=== PATIENT | female | born 1980 | race Caucasian/White ===

== ENCOUNTER 2016-07-31 12:52 | Inpatient (IN) | payer OTHER, MEDICARE ==
[~2016-07-31] VITALS: Ht 170.2 cm; Wt 99.8 kg
[2016-07-31] MEDS ORDERED: [UNRECOGNIZED DRUG - CODE] (13:08)
[2016-07-31] MEDS ORDERED: OTEZLA30 MG PO (13:08)
[2016-07-31] MEDS ORDERED: HUMIRA40 MG/0.2 SUBQ (13:08)
[2016-07-31] MEDS ORDERED: VENLAFAXINE HCL75 M2 ORAL (13:08)
[2016-07-31 13:30] VITALS: BP 137/87
--- NOTE | 2016-07-31 13:36 | Emergency Room Report ---
History of Present Illness General Chief Complaint: General Complaint Source: Patient Present Illness HPI 36 YO Female presents to the ED c/o pain, swelling, and erythema of the groin area with multiple abscesses noted. Pt. has a hx of Hidradenitis and has failed multiple oral courses of oral antibiotic therapy. pt. 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 The pt. is scheduled to have surgical removal by dr. Bell. Denies nausea vomiting fevers or chills. Denies cardiac history or recent illness. She denies abdominal pain, other than pain about the lesions in the groin area. Patient reports her pain is 8/10 in severity exacerbated upon touch. Denies CP, Palpitations, LOC, AMS, dizziness, Changes in Vision, Sensation, paresthesias, or a sudden severe headache. Allergies: Coded Allergies: CEFDINIR (Verified Allergy, Unknown, 07/31/16) CEPHALEXIN (Verified Allergy, Unknown, 07/31/16) CIPROFLOXACIN (Verified Allergy, Unknown, 07/31/16) DOXYCYCLINE (Unverified Allergy, Unknown, 07/31/16) ERYTHROMYCIN BASE (Unverified Allergy, Unknown, 07/31/16) LEVOFLOXACIN (Verified Allergy, Unknown, 07/31/16) MORPHINE (Verified Allergy, Unknown, 07/31/16) MUPIROCIN (Verified Allergy, Unknown, 07/31/16) PENICILLINS (Unverified Allergy, Unknown, 07/31/16) SULFA (SULFONAMIDE ANTIBIOTICS) (Unverified Allergy, Unknown, 07/31/16) Uncoded Allergies: DOXACYCLINE (Allergy, Unknown, 07/31/16) ERYTHROMYCIN (Allergy, Unknown, 07/31/16) PENICILLIN (Allergy, Unknown, 07/31/16) SULFA (Allergy, Unknown, 07/31/16) Patient History Past Medical History: see triage record Past Surgical History: none Pertinent Family History: none Last Menstrual Period: 2007 - Now: No Immunizations: UTD Reviewed Nursing Documentation: PMH: Agreed, PSxH: Agreed Review of Systems All Other Systems: negative except mentioned in HPI Physical Exam Vital Signs Date Time Temp Pulse Resp B/P Pulse Ox O2 Delivery O2 Flow Rate FiO2 07/31/16 12:54 98.4 87 16 137/87 97 Room Air Sp02 EP Interpretation: reviewed, normal General Appearance: no apparent distress, alert, GCS 15, non-toxic Head: normocephalic, atraumatic Eyes: bilateral eye PERRL, bilateral eye normal inspection ENT: hearing grossly normal, normal pharynx, no angioedema, normal voice Neck: full range of motion, supple/symm/no masses Respiratory: chest non-tender, lungs clear, normal breath sounds, speaking full sentences Cardiovascular #1: regular rate, rhythm, no edema Gastrointestinal: non tender, soft, no guarding, no rebound Rectal: deferred Genitourinary: normal inspection, no CVA tenderness Musculoskeletal: back normal, gait/station normal, normal range of motion, non- tender Neurologic: alert, oriented x3, responsive, motor strength/tone normal, sensory intact, speech normal Psychiatric: judgement/insight normal, memory normal, mood/affect normal Skin: normal color, no rash, warm/dry, well hydrated, other - 5 abscess in the groin less than 3cm each, erythema and ttp noted. Lymphatic: no adenopathy Medical Decision Making PA Attestation Dr. beltran is my supervising Physician whom patient management has been discussed with. Diagnostic Impression: Primary Impression: Hidradenitis suppurativa Additional Impression: Urinary tract infection Qualified Codes: N30.00 - Acute cystitis without hematuria ER Course Pt. presents to the ED c/o pain, swelling, and erythema of the groin area with multiple abscesses noted. Pt. has a hx of Hidradenitis and has failed multiple oral courses of oral antibiotic therapy. pt. 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 The pt. is scheduled to have surgical removal by dr. Bell. Denies nausea vomiting fevers or chills. Denies cardiac history or recent illness. She denies abdominal pain, other than pain about the lesions in the groin area. Patient reports her pain is 8/10 in severity exacerbated upon touch. Denies CP, Palpitations, LOC, AMS, dizziness, Changes in Vision, Sensation, paresthesias, or a sudden severe headache. Pt also reports hx of need for port , or PICC line. Ddx considered but are not limited to cellulitis, hydradenitis Suppurativa, fracture, d/L, gout, abscess Vital signs: are WNL, pt. is afebrile H&PE are most consistent with Vulval hydradenitis Suppurativa requiring direct admission for surgical or IV abx. management. ORDERS: -Gen. preop labwork: CBC, CMP, PT/PTT: WNL / unremarkable - Type and Screen. - EK BPM NSR, no acute ST changes noted, - interpreted by Dr. Mar. -UA: NITRITE POSITIVE, WBC's noted in urine. - Urine Hcg: Negative ED INTERVENTIONS: - PICC Line placement was ordered. - IV Access established. DISPOSITION: at this time pt. will be admitted to Dr. Pang for hydradenitis Suppurativa. Dr. Pang agreed to admit the pt. and to continue pt. care management. Labs Test 07/31/16 13:34 07/31/16 13:36 Urine Color Pale yellow Urine Appearance Clear Urine pH 5 (4.5-8.0) Urine Specific [place] 1.025 (1.005-1.035) Urine Protein Negative (NEGATIVE) Urine Glucose (UA) Negative (NEGATIVE) Urine Ketones Negative (NEGATIVE) Urine Occult Blood Negative (NEGATIVE) Urine Nitrite Positive (NEGATIVE) Urine Bilirubin Negative (NEGATIVE) Urine Urobilinogen Normal MG/DL (0.0-1.0) Urine Leukocyte Esterase 2+ (NEGATIVE) Urine RBC 0-2 /HPF (0 - 2) Urine WBC 10-15 /HPF (0 - 2) Urine Squamous Epithelial Cells Few /LPF (NONE/OCC) Urine Bacteria Moderate /HPF (NONE) Urine HCG, Qualitative Negative White Blood Count 11.1 K/UL (4.8-10.8) Red Blood Count 4.72 M/UL (4.20-5.40) Hemoglobin 14.2 G/DL (12.0-16.0) Hematocrit 42.2 % (37.0-47.0) Mean Corpuscular Volume 89 FL (80-99) Mean Corpuscular Hemoglobin 30.0 PG (27.0-31.0) Mean Corpuscular Hemoglobin Concent 33.5 G/DL (32.0-36.0) Red Cell Distribution Width 12.0 % (11.6-14.8) Platelet Count 266 K/UL (150-450) Mean Platelet Volume 7.0 FL (6.5-10.1) Neutrophils (%) (Auto) 54.5 % (45.0-75.0) Lymphocytes (%) (Auto) 37.5 % (20.0-45.0) Monocytes (%) (Auto) 3.9 % (1.0-10.0) Eosinophils (%) (Auto) 2.9 % (0.0-3.0) Basophils (%) (Auto) 1.2 % (0.0-2.0) Prothrombin Time 10.1 SEC (9.30-11.50) Prothromb Time International Ratio 1.0 (0.9-1.1) Activated Partial Thromboplast Time 26 SEC (23-33) Sodium Level 139 mEQ/L (135-145) Potassium Level 3.7 mEQ/L (3.4-4.9) Chloride Level 98 mEQ/L (98-107) Carbon Dioxide Level 24 mEQ/L (20-30) Anion Gap 17 (5-15) Blood Urea Nitrogen 10 mg/dL (7-23) Creatinine 1.1 mg/dL (0.5-0.9) Estimat Glomerular Filtration Rate 55.6 mL/min (>60) Glucose Level 90 mg/dL (74-106) Calcium Level 9.2 mg/dL (8.6-10.2) Total Bilirubin 0.3 mg/dL (0.0-1.2) Aspartate Amino Transf (AST/SGOT) 25 U/L (5-40) Alanine Aminotransferase (ALT/SGPT) 29 U/L (3-33) Alkaline Phosphatase 66 U/L (35-104) Total Protein 7.4 g/dL (6.6-8.7) Albumin 4.3 g/dL (3.5-5.2) Globulin 3.1 g/dL Albumin/Globulin Ratio 1.3 (1.0-2.7) EKG Diagnostic Results Rate: normal Rhythm: NSR - [address] Segments: no acute changes ASA given to the pt in ED: No PA Scribe Text this EKG was interpreted by Dr. Mar and interpretation was entered by NADEEM Palencia as scribe Last Vital Signs Date Time Temp Pulse Resp B/P Pulse Ox O2 Delivery O2 Flow Rate FiO2 07/31/16 12:54 98.4 87 16 137/87 97 Room Air Disposition: ADMITTED INPATIENT Condition: Serious Brenda Palencia Jul 31, 2016 13:36
[2016-07-31] MEDS ORDERED: Heparin 2000 units/Ns 1000ml IV ONE (13:45)
[2016-07-31] MEDS ORDERED: Lidocaine 1% Plain 30 ml INJ ONE (13:45)
[2016-07-31 14:14] LABS: APPEARANCE,URINE CLEAR; KETONES,URINE NEGATIVE (NEGATIVE); LEUKOCYTE ESTERASE ,URINE 2+ (NEGATIVE); NITRITE,URINE POSITIVE (NEGATIVE); PH,URINE 5 (4.5-8.0); PROTEIN,URINE NEGATIVE (NEGATIVE); UROBILINOGEN,URINE NORMAL MG/DL (0.0-1.0)
[2016-07-31 14:15] LABS: BASOPHILS % (AUTO) 1.2 % (0.0-2.0); EOSINOPHILS % (AUTO) 2.9 % (0.0-3.0); LYMPHOCYTES % (AUTO) 37.5 % (20.0-45.0); MEAN CORPUSCULAR HGB CONC 33.5 G/DL (32.0-36.0); MEAN CORPUSCULAR VOLUME 89 FL (80-99); MONOCYTES % (AUTO) 3.9 % (1.0-10.0); NEUTROPHILS % (AUTO) 54.5 % (45.0-75.0); PLATELET COUNT 266 K/UL (150-450); RED BLOOD COUNT 4.72 M/UL (4.20-5.40); WHITE BLOOD COUNT 11.1 K/UL (4.8-10.8)
[2016-07-31 14:23] LABS: PROTHROMBIN TIME 10.1 SEC (9.30-11.50)
[2016-07-31 14:28] LABS: ALBUMIN/GLOBULIN RATIO 1.3 (1.0-2.7); CALCIUM 9.2 mg/dL (8.6-10.2); CREATININE 1.1 mg/dL (0.5-0.9); GLOMERULAR FILTRATION RATE 55.6 mL/min (>60); POTASSIUM 3.7 mEQ/L (3.4-4.9); TOTAL PROTEIN 7.4 g/dL (6.6-8.7)
[2016-07-31 14:33] LABS: BACTERIA,URINE MODERATE /HPF; RBC,URINE 0-2 /HPF (0 - 2); SQUAMOUS EPITHELIAL CELL,UR FEW /LPF (NONE/OCC)
[2016-07-31 15:20] VITALS: BP 131/85
[2016-07-31] MEDS ORDERED: Sodium Bicarbonate 4% 2.4meq/5ml vial IV ONE (15:30)
--- NOTE | 2016-07-31 18:44 | History and Physical ---
History of Present Illness General Date patient seen: Jul 31, 2016 Time patient seen: 18:37 Reason for Hospitalization: abscess Present Illness HPI 36 y/o female with hx of hidradenitis in the past s/p multiple treatemtns including abx and surgeries, presents with pain in her axillary region and groin , impeding her from fully being able to work and perform ADLs, pt has been on disability for months beacause of this. No fevers/chills, pain progressive in her axillary and groin regions. No previous complications from gen anesthesia or cardio/pulm complications from previous surgeries. Is able to perform 4METS activity without any chest pain or dyspnea, no hx of CAD/SD/pulm disease. 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 Allergies: Coded Allergies: CEFDINIR (Verified Allergy, Unknown, 07/31/16) CEPHALEXIN (Verified Allergy, Unknown, 07/31/16) CIPROFLOXACIN (Verified Allergy, Unknown, 07/31/16) DOXYCYCLINE (Unverified Allergy, Unknown, 07/31/16) ERYTHROMYCIN BASE (Unverified Allergy, Unknown, 07/31/16) LEVOFLOXACIN (Verified Allergy, Unknown, 07/31/16) MORPHINE (Verified Allergy, Unknown, 07/31/16) MUPIROCIN (Verified Allergy, Unknown, 07/31/16) PENICILLINS (Unverified Allergy, Unknown, 07/31/16) SULFA (SULFONAMIDE ANTIBIOTICS) (Unverified Allergy, Unknown, 07/31/16) Uncoded Allergies: DOXACYCLINE (Allergy, Unknown, 07/31/16) ERYTHROMYCIN (Allergy, Unknown, 07/31/16) PENICILLIN (Allergy, Unknown, 07/31/16) SULFA (Allergy, Unknown, 07/31/16) Medication History Scheduled Adalimumab (Humira), 40 MG SUBQ ONCE A WEEK, (Reported) Apremilast (Otezla), 30 MG PO BID, (Reported) Venlafaxine Hcl* (Venlafaxine Hcl Er*), 75 MG ORAL DAILY, (Reported) [Clobestasol], BID, (Reported) Patient History History Provided By: Patient Healthcare decision maker Resuscitation status Full Code Advanced Directive on File No Past Medical/Surgical History Past Medical/Surgical History: (1) Palmoplantar pustulosis Family History Family History: Patient reports no known family medical history. Social History Social History: (1) No significant social history Review of Systems ROS Narrative CONSTITUTIONAL: No weight loss, fever, chills, weakness or fatigue. HEENT: Eyes: No visual loss, blurred vision, double vision or yellow sclerae. Ears, Nose, Throat: No hearing loss, sneezing, congestion, runny nose or sore throat. SKIN: No rash or itching. CARDIOVASCULAR: No chest pain, chest pressure or chest discomfort. No palpitations or edema. RESPIRATORY: No shortness of breath, cough or sputum. GASTROINTESTINAL: No anorexia, nausea, vomiting or diarrhea. No abdominal pain or blood. NEUROLOGICAL: No headache, dizziness, syncope, paralysis, ataxia, numbness or tingling in the extremities. No change in bowel or bladder control. MUSCULOSKELETAL: + groin and axillary pain. HEMATOLOGIC: No anemia, bleeding or bruising. LYMPHATICS: No enlarged nodes. No history of splenectomy. PSYCHIATRIC: No history of depression or anxiety. ENDOCRINOLOGIC: No reports of sweating, cold or heat intolerance. No polyuria or polydipsia. ALLERGIES: No history of asthma, hives, eczema or rhinitis. Physical Exam Physical Exam Narrative General: alert, cooperative, no distress, appears stated age Head: normocephalic, without obvious abnormality, atraumatic Eyes: conjunctivae/corneas clear. PERRL, EOM's intact Throat: lips, mucosa, and tongue normal. MMM Neck: supple, symmetrical, trachea midline, and no JVD Lungs: clear to auscultation bilaterally Heart: regular rate and rhythm, S1, S2 normal, no murmur, click, rub or gallop Abdomen: soft, non-tender, non-distended, bowel sounds normal; no masses or organomegaly Extremities: +tenderness, +lesions, +rubor on bilateral axillae and groin region - desquamative lesions on palms and soles bilaterally Pulses: 2+ and symmetric Neurologic: grossly normal, no focal deficits Last 24 Hour Vital Signs Date Time Temp Pulse Resp B/P Pulse Ox O2 Delivery O2 Flow Rate FiO2 07/31/16 15:20 98.4 87 16 131/85 97 Room Air 07/31/16 15:20 87 16 131/85 97 Room Air 07/31/16 13:30 98.4 16 137/87 97 Room Air 07/31/16 12:54 98.4 87 16 137/87 97 Room Air Laboratory Tests Test 07/31/16 13:34 07/31/16 13:36 Urine Color Pale yellow Urine Appearance Clear Urine pH 5 (4.5-8.0) Urine Specific [place] 1.025 (1.005-1.035) Urine Protein Negative (NEGATIVE) Urine Glucose (UA) Negative (NEGATIVE) Urine Ketones Negative (NEGATIVE) Urine Occult Blood Negative (NEGATIVE) Urine Nitrite Positive (NEGATIVE) H Urine Bilirubin Negative (NEGATIVE) Urine Urobilinogen Normal MG/DL (0.0-1.0) Urine Leukocyte Esterase 2+ (NEGATIVE) H Urine RBC 0-2 /HPF (0 - 2) Urine WBC 10-15 /HPF (0 - 2) H Urine Squamous Epithelial Cells Few /LPF (NONE/OCC) Urine Bacteria Moderate /HPF (NONE) H Urine HCG, Qualitative Negative White Blood Count 11.1 K/UL (4.8-10.8) H Red Blood Count 4.72 M/UL (4.20-5.40) Hemoglobin 14.2 G/DL (12.0-16.0) Hematocrit 42.2 % (37.0-47.0) Mean Corpuscular Volume 89 FL (80-99) Mean Corpuscular Hemoglobin 30.0 PG (27.0-31.0) Mean Corpuscular Hemoglobin Concent 33.5 G/DL (32.0-36.0) Red Cell Distribution Width 12.0 % (11.6-14.8) Platelet Count 266 K/UL (150-450) Mean Platelet Volume 7.0 FL (6.5-10.1) Neutrophils (%) (Auto) 54.5 % (45.0-75.0) Lymphocytes (%) (Auto) 37.5 % (20.0-45.0) Monocytes (%) (Auto) 3.9 % (1.0-10.0) Eosinophils (%) (Auto) 2.9 % (0.0-3.0) Basophils (%) (Auto) 1.2 % (0.0-2.0) Prothrombin Time 10.1 SEC (9.30-11.50) Prothromb Time International Ratio 1.0 (0.9-1.1) Activated Partial Thromboplast Time 26 SEC (23-33) Sodium Level 139 mEQ/L (135-145) Potassium Level 3.7 mEQ/L (3.4-4.9) Chloride Level 98 mEQ/L (98-107) Carbon Dioxide Level 24 mEQ/L (20-30) Anion Gap 17 (5-15) H Blood Urea Nitrogen 10 mg/dL (7-23) Creatinine 1.1 mg/dL (0.5-0.9) H Estimat Glomerular Filtration Rate 55.6 mL/min (>60) Glucose Level 90 mg/dL (74-106) Calcium Level 9.2 mg/dL (8.6-10.2) Total Bilirubin 0.3 mg/dL (0.0-1.2) Aspartate Amino Transf (AST/SGOT) 25 U/L (5-40) Alanine Aminotransferase (ALT/SGPT) 29 U/L (3-33) Alkaline Phosphatase 66 U/L (35-104) Total Protein 7.4 g/dL (6.6-8.7) Albumin 4.3 g/dL (3.5-5.2) Globulin 3.1 g/dL Albumin/Globulin Ratio 1.3 (1.0-2.7) Height (Feet): 5 Height (Inches): 7.00 Weight (Pounds): 220 Medications Current Medications Medications (Trade) Dose Ordered Sig/[place] Route PRN Reason Start Time Stop Time Status Last Admin Dose Admin Venlafaxine HCl (Effexor-XR) 75 mg DAILY ORAL 08/01/16 09:00 08/31/16 08:59 Assessment/Plan Problem List: (1) Abscess Assessment & Plan: Admit to inpatient Start IV abx, vanco IV to run over 4 hours, benadryl pre-treatment has worked for her in the past Blood cx Pain control Supp care Surgical consult If patient is required to have surgery, based on the patient's medical history, and other available ancillary data, the patient is a LOW risk for an INTERMEDIATE risk procedure. Per the most recent ACC/AHA guidelines, the patient does not need any further cardiopulmonary testing prior to the procedure and there do not appear to be any clear medical contraindications to proceeding with the proposed procedure. A total of 33 mins of time was spent with coordination of care and counseling, in addition to the face to face time spent with the patient. ICD Codes: L02.91 - Cutaneous abscess, unspecified SNOMED: 636362853 (2) Palmoplantar pustulosis Assessment & Plan: Stable Cont zaheer floyd ICD Codes: L40.3 - Pustulosis palmaris et plantaris SNOMED: 72700412 ROBSON DAWN Jul 31, 2016 18:44
[2016-07-31] MEDS ORDERED: LORazepam Inj 2mg/ml 1ml IV PRN (18:45)
[2016-07-31] MEDS ORDERED: Mylanta II UD 30ml ORAL PRN (18:45)
[2016-07-31] MEDS ORDERED: HYDROmorphone 1mg/ml Carpuject IVP PRN (18:45)
[2016-07-31] MEDS ORDERED: Hydromorphone 0.5mg/0.5ml inj IVP PRN (18:45)
[2016-07-31] MEDS ORDERED: Miralax 17gm pkt ORAL PRN (18:45)
[2016-07-31 20:00] VITALS: BP 137/78
[2016-07-31] MEDS: Vancomycin 1.5gm/D5W 300ml 300 ML IVPB ONE (21:00)
[2016-07-31] MEDS: Docusate 100mg cap ORAL SCH (21:00)
[2016-07-31] MEDS: D5NS 1,000 ML IV SCH (21:01)
[2016-07-31] MEDS: DiphenhydrAMINE 50mg/ml Inj IVP SCH (21:36)
[2016-08-01] VITALS (14 sets, daily range): BP systolic 97–140; BP diastolic 62–92
[2016-08-01] MEDS ORDERED: DiphenhydrAMINE 50mg/ml Inj IVP ONE (01:30)
[2016-08-01] MEDS ORDERED: Vancomycin 750mg/D5W 275ml IVPB ONE ×2 (02:00)
[2016-08-01] MEDS ORDERED: Vancomycin 750mg Inj IVPB ONE (02:23)
[2016-08-01 07:07] LABS: CALCIUM 8.7 mg/dL (8.6-10.2); CREATININE 1.1 mg/dL (0.5-0.9); GLOMERULAR FILTRATION RATE 55.6 mL/min (>60); POTASSIUM 4.2 mEQ/L (3.4-4.9)
[2016-08-01 07:22] LABS: EOSINOPHILS % (AUTO) 3.9 % (0.0-3.0); LYMPHOCYTES % (AUTO) 35.6 % (20.0-45.0); MEAN CORPUSCULAR HEMOGLOBIN 30.1 PG (27.0-31.0); MEAN CORPUSCULAR HGB CONC 33.5 G/DL (32.0-36.0); MEAN CORPUSCULAR VOLUME 90 FL (80-99); MEAN PLATELET VOLUME 6.5 FL (6.5-10.1); MONOCYTES % (AUTO) 7.2 % (1.0-10.0); NEUTROPHILS % (AUTO) 52.2 % (45.0-75.0); PLATELET COUNT 227 K/UL (150-450); RED BLOOD COUNT 4.39 M/UL (4.20-5.40); RED CELL DISTRIBUTION WIDTH 12.3 % (11.6-14.8); WHITE BLOOD COUNT 8.5 K/UL (4.8-10.8)
[2016-08-01] MEDS: DiphenhydrAMINE 50mg/ml Inj IVP SCH ×2 (08:30→16:54)
[2016-08-01] MEDS: Docusate 100mg cap ORAL SCH ×3 (09:00→23:37)
[2016-08-01] MEDS: Venlafaxine XR 75mg cap ORAL SCH (09:00)
[2016-08-01] MEDS ORDERED: Vancomycin 750mg/D5W 275ml IVPB SCH ×2 (09:00)
--- NOTE | 2016-08-01 09:57 | Diagnostic Imaging Report ---
Indications: Long-term central IV access required for intravenous therapy Technique: The procedure indications, risks, and alternatives were explained to the patient who understands and gives consent to proceed. Strict aseptic technique was utilized, including hand washing, use of hat and mask, use of sterile gown and gloves, sterile ultrasound gel and probe cover, prepping of left arm skin with 2% chlorhexidine solution, and application of full body sterile barrier over this area. Skin and subcutaneous soft tissues were infiltrated with 1% lidocaine and sodium bicarbonate. A small dermatotomy was made, through which the patent, adequate size left basilic vein was punctured percutaneously under direct sonographic guidance with a 21-gauge needle. Exchange was made over a 0.018 inch guidewire for a 5 [place] peel-away sheath. A [employer] Power-PICC 5 [place] dual lumen central venous catheter was cut to appropriate length, then advanced through the sheath over the guidewire under direct fluoroscopic guidance into the superior vena cava. Guidewire and sheath were removed. Both catheter ports were aspirated, then flushed with heparinized saline. Final image was obtained. Catheter was secured the skin with adhesive dressing. Patient tolerated procedure well without immediate complications. Total fluoroscopy time: 0.1 minutes. Dose-area product: 19 dGy-cm2 Findings: Final image demonstrates tip of the central venous catheter at the level of superior vena cava-right atrial junction, 42 cm in from the skin. Both ports aspirate and flush freely. IMPRESSION: Placement of peripherally inserted central venous catheter via left basilic vein, working well.
--- NOTE | 2016-08-01 10:37 | Pre-Procedure Note/Attestation ---
Pre-Procedure Note/Attestation Complete Prior to Procedure Planned Procedure: bilateral Procedure Narrative: Debridement of bilateral groin and lower abdomen with flap elevation Attestation I attest that I discussed the nature of the procedure; its benefits; risks and complications; and alternatives (and the risks and benefits of such alternatives ), prior to the procedure, with the patient (or the patient's legal farm loan representative). I attest that, if there was a reasonable possibility of needing a blood transfusion, the patient (or the patient's legal farm loan representative) was given the [facility] standardized written summary, pursuant to the [place] Blood Safety Act ([place] Health and Safety Code # 1645, as amended). I attest that I re-evaluated the patient just prior to the surgery and that there has been no change in the patient's H&P, except as documented below: FRANCO ALVARADO Aug 01, 2016 10:37
--- NOTE | 2016-08-01 10:38 | Operative Note - PDOC ---
Operative Note Operative Note Pre-op Diagnosis: Bilateral infected groin and lower abdominal tissues Procedure: Excisional debridement of bilateral groin and lower abdominal tissues with flap elevation Surgeon: Avila Flight Service Specialist: Ayla Anesthesia: general Specimen: yes Complications: none Condition: stable Estimated Blood Loss: minimal Implant(s) used?: No FRANCO ALVARADO Aug 01, 2016 10:38
[2016-08-01] MEDS ORDERED: Rate Change PCA 1 Each MISC PRN (10:45)
[2016-08-01] MEDS ORDERED: Zolpidem 5mg tab ORAL PRN (10:45)
[2016-08-01] MEDS ORDERED: Propofol 10mg/ml 20ml IV ONE (11:05)
[2016-08-01] MEDS ORDERED: Bacitracin 50000 Units Vial ONE (11:06)
[2016-08-01] MEDS ORDERED: Lidocaine 1% 10mg/ml/Epi 0.005mg/ml 30ml vial INJ ONE ×3 (11:06→12:48)
[2016-08-01] MEDS ORDERED: NS Irrig 1000ml ONE (11:30)
[2016-08-01] MEDS ORDERED: Neostigmine 1mg/ml 10ml Inj ONE (11:30)
[2016-08-01] MEDS ORDERED: Midazolam 2mg/2ml Inj ONE (11:30)
[2016-08-01] MEDS ORDERED: Succinylcholine 20mg/ml 10ml vial ONE (11:30)
[2016-08-01] MEDS ORDERED: Nimbex 2mg/ml Inj 10ML IVP ONE (11:30)
[2016-08-01] MEDS ORDERED: fentaNYL 100 mcg/2 mL IV ONE (11:30)
[2016-08-01] MEDS ORDERED: Sterile Water Irrig 1000ml IRRIG ONE (11:30)
[2016-08-01] MEDS ORDERED: LR 1000ml ONE (11:30)
[2016-08-01] MEDS ORDERED: Ketorolac 30mg Inj ONE (11:30)
[2016-08-01] MEDS ORDERED: Glycopyrrolate 0.2mg/ml 1ml Vial ONE (11:30)
[2016-08-01] MEDS ORDERED: Surgicel 4in x 8in TOPIC ONE (12:30)
--- NOTE | 2016-08-01 12:33 | Anethesia Preoperative Eval ---
Anesthesia Pre-op PMH/ROS General Date of Evaluation: Aug 01, 2016 Time of Evaluation: 11:20 Anesthesiologist: Demar ASA Score: ASA 3 Mallampati Score Class I : Soft palate, uvula, fauces, pillars visible Class II: Soft palate, uvula, fauces visible Class III: Soft palate, base of uvula visible Class IV: Only hard plate visible Mallampati Classification: Class III Surgeon: Avila Diagnosis: Recurrent hydradenitis Surgical Procedure: Excision of bilateral groin hydradenitis Anesthesia History: none Allergies: Coded Allergies: CEFDINIR (Verified Allergy, Unknown, 07/31/16) CEPHALEXIN (Verified Allergy, Unknown, 07/31/16) CIPROFLOXACIN (Verified Allergy, Unknown, 07/31/16) DOXYCYCLINE (Unverified Allergy, Unknown, 07/31/16) ERYTHROMYCIN BASE (Unverified Allergy, Unknown, 07/31/16) LEVOFLOXACIN (Verified Allergy, Unknown, 07/31/16) MORPHINE (Verified Allergy, Unknown, 07/31/16) MUPIROCIN (Verified Allergy, Unknown, 07/31/16) PENICILLINS (Unverified Allergy, Unknown, 07/31/16) SULFA (SULFONAMIDE ANTIBIOTICS) (Unverified Allergy, Unknown, 07/31/16) Uncoded Allergies: DOXACYCLINE (Allergy, Unknown, 07/31/16) ERYTHROMYCIN (Allergy, Unknown, 07/31/16) PENICILLIN (Allergy, Unknown, 07/31/16) SULFA (Allergy, Unknown, 07/31/16) Past Medical History Cardiovascular: Denies: CAD, HTN, [place], arrhythmia, other, valve dz Pulmonary: Reports: ANAMIKA, Denies: COPD, asthma, other Gastrointestinal/Genitourinary: Reports: GERD, Denies: CRI, ESRD, other Neurologic/Psychiatric: Reports: depression/anxiety, Denies: CVA, TIA, dementia, other Endocrine: Denies: DM, hypothyroidism, other, steroids HEENT: Denies: CROW (L), CROW (R), cataract (L), cataract (R), glaucoma, other Hematology/Immune: Denies: DVT, anemia, bleeding disorder, other Musculoskeletal/Integumentary: Reports: other - Recurrent HS, Denies: DDD, DJD, OA, RA, edema Other: obesity PMH Narrative: as above PSxH Narrative: T&A Hysterectomy, knee scopes, Axillary HS treatment Anesthesia Pre-op Phys. Exam Physician Exam Last Vital Signs Date Time Temp Pulse Resp B/P Pulse Ox O2 Delivery O2 Flow Rate FiO2 08/01/16 08:00 97.7 71 17 121/70 96 Room Air Constitutional: NAD Neurologic: CN 2-12 intact Cardiovascular: RRR Respiratory: CTA Gastrointestinal: other - obesuty Airway Exam Mallampati Score: Class III MO: limited Neck: short Teeth: missing Anesthesia Pre-op A/P Labs Hematology Test 07/31/16 13:36 08/01/16 05:20 White Blood Count 11.1 K/UL (4.8-10.8) H 8.5 K/UL (4.8-10.8) Red Blood Count 4.72 M/UL (4.20-5.40) 4.39 M/UL (4.20-5.40) Hemoglobin 14.2 G/DL (12.0-16.0) 13.2 G/DL (12.0-16.0) Hematocrit 42.2 % (37.0-47.0) 39.5 % (37.0-47.0) Mean Corpuscular Volume 89 FL (80-99) 90 FL (80-99) Mean Corpuscular Hemoglobin 30.0 PG (27.0-31.0) 30.1 PG (27.0-31.0) Mean Corpuscular Hemoglobin Concent 33.5 G/DL (32.0-36.0) 33.5 G/DL (32.0-36.0) Red Cell Distribution Width 12.0 % (11.6-14.8) 12.3 % (11.6-14.8) Platelet Count 266 K/UL (150-450) 227 K/UL (150-450) Mean Platelet Volume 7.0 FL (6.5-10.1) 6.5 FL (6.5-10.1) Neutrophils (%) (Auto) 54.5 % (45.0-75.0) 52.2 % (45.0-75.0) Lymphocytes (%) (Auto) 37.5 % (20.0-45.0) 35.6 % (20.0-45.0) Monocytes (%) (Auto) 3.9 % (1.0-10.0) 7.2 % (1.0-10.0) Eosinophils (%) (Auto) 2.9 % (0.0-3.0) 3.9 % (0.0-3.0) H Basophils (%) (Auto) 1.2 % (0.0-2.0) 1.0 % (0.0-2.0) Coagulation Test 07/31/16 13:36 Prothrombin Time 10.1 SEC (9.30-11.50) Prothromb Time International Ratio 1.0 (0.9-1.1) Activated Partial Thromboplast Time 26 SEC (23-33) Chemistry Test 07/31/16 13:36 08/01/16 05:20 Sodium Level 139 mEQ/L (135-145) 139 mEQ/L (135-145) Potassium Level 3.7 mEQ/L (3.4-4.9) 4.2 mEQ/L (3.4-4.9) Chloride Level 98 mEQ/L (98-107) 98 mEQ/L (98-107) Carbon Dioxide Level 24 mEQ/L (20-30) 24 mEQ/L (20-30) Anion Gap 17 (5-15) H 17 (5-15) H Blood Urea Nitrogen 10 mg/dL (7-23) 11 mg/dL (7-23) Creatinine 1.1 mg/dL (0.5-0.9) H 1.1 mg/dL (0.5-0.9) H Estimat Glomerular Filtration Rate 55.6 mL/min (>60) 55.6 mL/min (>60) Glucose Level 90 mg/dL (74-106) 100 mg/dL (74-106) Calcium Level 9.2 mg/dL (8.6-10.2) 8.7 mg/dL (8.6-10.2) Total Bilirubin 0.3 mg/dL (0.0-1.2) Aspartate Amino Transf (AST/SGOT) 25 U/L (5-40) Alanine Aminotransferase (ALT/SGPT) 29 U/L (3-33) Alkaline Phosphatase 66 U/L (35-104) Total Protein 7.4 g/dL (6.6-8.7) Albumin 4.3 g/dL (3.5-5.2) Globulin 3.1 g/dL Albumin/Globulin Ratio 1.3 (1.0-2.7) Urine Test Test 07/31/16 13:34 Urine HCG, Qualitative Negative Risk Assessment & Plan Assessment: ASA 3 Plan: GA with ETT, PONV prevention Status Change Before Surgery: No Pre-Antibiotics Drug: none GERTRUDE JENKINS M.D. Aug 01, 2016 12:33
[2016-08-01] MEDS ORDERED: LR 1000ml 1,000 ML IVLG SCH (12:37)
[2016-08-01] MEDS ORDERED: Hydromorphone 0.5mg/0.5ml inj IVP PRN (12:45)
[2016-08-01] MEDS ORDERED: Meperidine 25mg/0.5ml Inj IV PRN (12:45)
[2016-08-01] MEDS ORDERED: Metoclopramide 10mg/2ml Inj IVP PRN (12:45)
[2016-08-01] MEDS ORDERED: Midazolam 2mg/2ml Inj IVP PRN (12:45)
[2016-08-01] MEDS ORDERED: DiphenhydrAMINE 50mg/ml Inj IVP PRN (12:45)
[2016-08-01] MEDS: PCA HYDROmorphone 1mg/ml 30 ML IV PRN (13:42)
[2016-08-01] MEDS: Heparin 5000 units/ml inj SUBQ SCH ×2 (14:00→22:00)
--- NOTE | 2016-08-01 15:12 | Immediate Post-Op Evaluation ---
Immediate Post-Op Evalulation Immediate Post-Op Evalulation Procedure: Bilateral excision of groin hydradenitis Date of Evaluation: Aug 01, 2016 Time of Evaluation: 13:30 IV Fluids: 1000 Blood Products: none Estimated Blood Loss: 50 Urinary Output: 350 Blood Pressure Systolic: 116 Blood Pressure Diastolic: 58 Pulse Rate: 72 Respiratory Rate: 20 O2 Sat by Pulse Oximetry: 99 Temperature (Fahrenheit): 97.4 Pain Score (1-10): 2 Nausea: No Vomiting: No Complications none Patient Status: reacts, patent, extubated, none Hydration Status: adequate GERTRUDE JENKINS M.D. Aug 01, 2016 15:12
[2016-08-01] MEDS: D5NS 1,000 ML IV SCH (15:36)
[2016-08-01] MEDS: Vancomycin 750mg/D5W 275ml IVPB SCH ×2 (17:30)
--- NOTE | 2016-08-01 17:36 | 48 Hour Post Anesthesia Eval ---
Post Anesthesia Evaluation Procedure: Bilateral excision of groin hydradenitis Date of Evaluation: Aug 01, 2016 Time of Evaluation: 17:35 Blood Pressure Systolic: 122 0: 62 Pulse Rate: 65 Respiratory Rate: 17 Temperature (Fahrenheit): 96.8 O2 Sat by Pulse Oximetry: 93 Airway: patent Nausea: No Vomiting: No Pain Intensity: 2 Hydration Status: adequate Cardiopulmonary Status: Stable Mental Status/LOC: patient returned to baseline Follow-up Care/Observations: 0 Post-Anesthesia Complications: 0 Follow-up care needed: N/A Ralph Leach MD Aug 01, 2016 17:36
--- NOTE | 2016-08-01 19:11 | General Progress Note ---
Assessment/Plan Problem List: (1) Abscess Assessment & Plan: s/p debridement POD#1 ContIV abx, vanco IV to run over 4 hours, iwona pre-treatment has worked for her in the past f/u Blood cx Pain control Supp care Surgical consult A total of 32 mins of time was spent with coordination of care and counseling, in addition to the face to face time spent with the patient. ICD Codes: L02.91 - Cutaneous abscess, unspecified SNOMED: 722294995 (2) Palmoplantar pustulosis Assessment & Plan: Stable Cont zaheer floyd dced ICD Codes: L40.3 - Pustulosis palmaris et plantaris SNOMED: 19695562 Subjective Date patient seen: Aug 01, 2016 Time patient seen: 19:10 ROS Limited/Unobtainable: No Allergies: Coded Allergies: CEFDINIR (Verified Allergy, Unknown, 07/31/16) CEPHALEXIN (Verified Allergy, Unknown, 07/31/16) CIPROFLOXACIN (Verified Allergy, Unknown, 07/31/16) DOXYCYCLINE (Unverified Allergy, Unknown, 07/31/16) ERYTHROMYCIN BASE (Unverified Allergy, Unknown, 07/31/16) LEVOFLOXACIN (Verified Allergy, Unknown, 07/31/16) MORPHINE (Verified Allergy, Unknown, 07/31/16) MUPIROCIN (Verified Allergy, Unknown, 07/31/16) PENICILLINS (Unverified Allergy, Unknown, 07/31/16) SULFA (SULFONAMIDE ANTIBIOTICS) (Unverified Allergy, Unknown, 07/31/16) Uncoded Allergies: DOXACYCLINE (Allergy, Unknown, 07/31/16) ERYTHROMYCIN (Allergy, Unknown, 07/31/16) PENICILLIN (Allergy, Unknown, 07/31/16) SULFA (Allergy, Unknown, 07/31/16) Subjective s/p debridement surgery POD#1, no periop or postop complications, no chest pain or dyspnea, no n/v, having dinner at time of visit. Objective Last 24 Hour Vital Signs Date Time Temp Pulse Resp B/P Pulse Ox O2 Delivery O2 Flow Rate FiO2 08/01/16 17:36 65 17 93 08/01/16 16:00 96.8 65 17 122/62 93 Room Air 08/01/16 15:28 18 08/01/16 15:12 72 20 99 08/01/16 14:58 17 08/01/16 14:30 98.0 08/01/16 14:30 18 08/01/16 14:30 97.9 81 17 108/66 99 Nasal Cannula 2.0 08/01/16 14:16 98.0 84 16 121/72 100 Nasal Cannula 3.0 08/01/16 14:15 16 08/01/16 14:10 79 14 132/74 100 Nasal Cannula 3.0 08/01/16 14:00 15 08/01/16 14:00 82 15 140/76 100 Nasal Cannula 3.0 08/01/16 13:50 87 19 130/81 100 Nasal Cannula 3.0 08/01/16 13:42 16 08/01/16 13:40 84 16 126/74 100 Nasal Cannula 3.0 08/01/16 13:35 88 16 121/72 100 Simple Mask 6.0 08/01/16 13:30 74 12 116/67 97 Simple Mask 6.0 08/01/16 13:24 98.8 71 14 124/75 99 Simple Mask 6.0 08/01/16 08:00 97.7 71 17 121/70 96 Room Air 08/01/16 04:00 97.8 73 18 133/92 97 Room Air 08/01/16 00:00 97.7 78 18 135/89 97 Room Air 07/31/16 20:00 98.7 67 18 137/78 97 Room Air Intake and Output 07/31/16 08/01/16 19:00 07:00 Intake Total 0 ml 748.83 ml Balance 0 ml 748.83 ml Intake Oral 0 ml IV Total 748.83 ml # Voids 5 Laboratory Tests 08/01/16 05:20: White Blood Count 8.5, Red Blood Count 4.39, Hemoglobin 13.2, Hematocrit 39.5, Mean Corpuscular Volume 90, Mean Corpuscular Hemoglobin 30.1, Mean Corpuscular Hemoglobin Concent 33.5, Red Cell Distribution Width 12.3, Platelet Count 227, Mean Platelet Volume 6.5, Neutrophils (%) (Auto) 52.2, Lymphocytes (%) (Auto) 35.6, Monocytes (%) (Auto) 7.2, Eosinophils (%) (Auto) 3.9H, Basophils (%) (Auto ) 1.0, Sodium Level 139, Potassium Level 4.2, Chloride Level 98, Carbon Dioxide Level 24, Anion Gap 17H, Blood Urea Nitrogen 11, Creatinine 1.1H, Estimat Glomerular Filtration Rate 55.6, Glucose Level 100, Calcium Level 8.7 Height (Feet): 5 Height (Inches): 7.00 Weight (Pounds): 220 Objective General: alert, cooperative, no distress, appears stated age Head: normocephalic, without obvious abnormality, atraumatic Eyes: conjunctivae/corneas clear. PERRL, EOM's intact Throat: lips, mucosa, and tongue normal. MMM Neck: supple, symmetrical, trachea midline, and no JVD Lungs: clear to auscultation bilaterally Heart: regular rate and rhythm, S1, S2 normal, no murmur, click, rub or gallop Abdomen: soft, non-tender, non-distended, bowel sounds normal; no masses or organomegaly Extremities: dressings c/d/i Pulses: 2+ and symmetric Skin: skin color, texture, turgor normal; no rashes or lesions Neurologic: grossly normal, no focal deficits ROBSON DAWN Aug 01, 2016 19:11
[2016-08-01] MEDS: PCA shift volume MISC SCH (19:12)
--- NOTE | 2016-08-01 20:15 | Consultation ---
DATE OF CONSULTATION: 08/01/2016 HISTORY OF PRESENT ILLNESS: This is a 36-year-old female, admitted to the emergency room for bilateral groin and lower abdominal abscesses with tenderness secondary to a history of hidradenitis. The patient has tried previous medical management and that has failed. Specifically, she has been on Humira, which has caused her complications with minimal improvement of her symptoms and she continues to have pain and drainage in those areas. She was admitted and started on IV antibiotics and I am seeing the patient for this condition. PAST MEDICAL HISTORY: Significant for polycystic ovary disease and hidradenitis. PAST SURGICAL HISTORY: Significant for total abdominal hysterectomy with axillary excision of hidradenitis and previous groin excision of hidradenitis. ALLERGIES: Includes multiple antibiotic allergies. Please refer to the internal medicine doctors note for those specific medications. PHYSICAL EXAMINATION: GENERAL: The patient is alert and oriented x3. HEART: Regular rate and rhythm. ABDOMEN: Soft, nontender, and nondistended. EXTREMITIES: Examination of the lower abdomen reveals areas of multiple abscesses in the left lower abdomen as well as sinus tracts and abscesses within the bilateral groins. ASSESSMENT AND PLAN: This is a 36-year-old female, admitted for lower abdominal and bilateral groin hidradenitis with abscess. She will be taken to the operating room for radical excision of these areas with reconstruction. She understands the plan and agrees to proceed. Aydee Gramajo M.D. DR: TANIKA JOB#: [id number] CC:
[2016-08-01] MEDS: DiphenhydrAMINE 50mg/ml Inj IVP PRN (20:23)
--- NOTE | 2016-08-01 20:30 | Operative Note - Dictated ---
DATE OF OPERATION: 08/01/2016 PREOPERATIVE DIAGNOSES: 1. Radical excision of left groin tissue. 2. Radical excision of right groin tissue. 3. Radical excision of left lower abdominal tissue. 4. Elevation of a medial thigh flap for staged closure of left groin wound. 5. Elevation of a left-sided medial groin flap for staged closure of left groin wound. 6. Elevation of a right-sided medial thigh flap for staged closure of right groin wound. 7. Elevation of a right-sided medial groin flap for staged closure of right groin wound. 8. Elevation of a lateral fasciocutaneous abdominal flap for staged closure of abdominal wound. 9. Elevation of a medial fasciocutaneous flap for staged closure of left lower abdominal wound. SURGEON: Aydee Gramajo M.D. MOLD CARRIER: Susy Aguila M.D. ANESTHESIA: General. COMPLICATIONS: None. DRAINS: None. SPECIMEN: Two groin and one lower abdominal tissue specimen. DISPOSITION: Stable to the recovery room. INDICATIONS FOR SURGERY: This is a 36-year-old female, admitted for bilateral groin and left lower abdominal abscesses. She was started on IV antibiotics. Upon my exam, I felt that she was an appropriate candidate for radical excision of these tissues and staged reconstruction. Reason for the staging is given the infectious etiology of her condition, it would not be prudent to perform definitive closure of her wounds at the same time and so, the flaps that would be elevated at the first surgery would be readvanced within two to three days following IV antibiotics and wound care. She understands the plan and agrees to proceed. DETAILS OF THE OPERATION: The patient was brought to the operating room and laid in the lithotomy position on the operating room table. Her lower abdomen, bilateral groin, and perineal regions were prepped and draped in a sterile usual fashion. We first began by using a marking pen to delineate the extent of the infected tissues on both groins and the lower abdomen. Once this was done, a total of 20 mL of lidocaine with epinephrine was injected into the surgical field at all sites. We first began by using a #10 blade to radically excise the left groin tissue all the way down to the level of the adductor fascia. The specimen was then placed on the back table and the defect that resulted was 14 x 8 cm and was clearly not amenable to definitive primary closure. As such, two flaps had to be raised on either side of the wound to allow for tension-free repair. We first began by elevating a medial thigh flap on that side with perforators of the superficial femoral artery perfusing this flap, with the elevation being done at the level of the adductor fascia, with proximal and distal incisions made to fully mobilize the flap. We noted that this was not sufficient to completely allow for tension-free repair. As such, a medial groin skin flap was elevated based off of perforators of the superficial circumflex iliac artery as well as the pudendal artery, with proximal and distal incisions made to fully mobilize this flap as well. Following this, we turned our attention to the right groin where a #10 blade was also used to make the skin incision and radically excise along, with electrocautery, the groin tissue to the level of the adductor fascia. The wound that resulted on this side measured 16 x 9 cm and this was also not amenable to primary closure. As such, apposing flaps had to be elevated first. A medial thigh flap was elevated based off of perforators of the superficial femoral artery, with proximal and distal incisions made to fully mobilize this flap at the level of the adductor fascia and again, this was noted not to be sufficient to allow for tension-free repair. As such, a corresponding medial groin skin flap was elevated based off of perforators of the superficial circumflex iliac artery as well as the pudendal artery, with proximal and distal incisions made to fully mobilize this flap as well. A tension-free repair could be accomplished. At this point, we then turned our attention to the lower abdominal abscesses, which were marked out in an inverted T-fashion. A 10 blade was used to make this inverted T excision on the tissue all the way down to the level of the subcutaneous fat. Once this was done, this wound and all the other wounds were copiously irrigated with pulse lavage. Hemostasis was achieved. Corresponding lateral and medial lower abdominal flaps were elevated to allow for a tension-free repair of this lower abdominal wound to be accomplished at a second stage. With this done, the wounds were again copiously irrigated with pulse lavage. Hemostasis was achieved, and the wounds were partially closed with jose and the remainder was packed with wet-to-dry dressings with a plan for performing the dressing changes over the weekend and bringing the patient back within 72 hours for definitive flap closure. The patient tolerated the procedure well. There were no complications. Aydee Gramajo M.D. DR: BRIE JOB#: [id number] CC:
[2016-08-02 00:56] VITALS: BP 113/77
[2016-08-02 04:00] VITALS: BP 118/78
[2016-08-02] MEDS: DiphenhydrAMINE 50mg/ml Inj IVP SCH ×2 (04:35→16:54)
[2016-08-02] MEDS: Vancomycin 750mg/D5W 275ml IVPB SCH ×4 (05:06→17:25)
[2016-08-02] MEDS: Heparin 5000 units/ml inj SUBQ SCH ×3 (06:00→21:43)
[2016-08-02] MEDS: PCA shift volume MISC SCH ×2 (07:27→19:00)
[2016-08-02 08:00] VITALS: BP 120/64
[2016-08-02] MEDS: Venlafaxine XR 75mg cap ORAL SCH (08:04)
[2016-08-02] MEDS: Docusate 100mg cap ORAL SCH ×3 (08:04→17:51)
[2016-08-02] MEDS ORDERED: Heparin 5000 units/ml inj SUBQ SCH (09:00)
[2016-08-02] MEDS ORDERED: D5NS 1000ml IV ONE (09:57)
[2016-08-02] MEDS ORDERED: Tubing IV Secondary IV ONE (09:57)
[2016-08-02] MEDS ORDERED: D5W 275ml ONE (09:57)
--- NOTE | 2016-08-02 10:53 | General Progress Note ---
Progress Note Progress Note Pt seen and examined. POD # 1 and doing well. Dressings in place. Will change dressings in AM. To OR on Thursday for definitive wound closure. FRANCO Deunas MD Aug 02, 2016 10:53
[2016-08-02] MEDS: DiphenhydrAMINE 50mg/ml Inj IVP PRN (11:25)
--- NOTE | 2016-08-02 11:58 | General Progress Note ---
Assessment/Plan Problem List: (1) Abscess Assessment & Plan: s/p debridement POD#2 ContIV abx, vanco IV to run over 4 hours, iwona pre-treatment has worked for her in the past f/u Blood cx Pain control Supp care Surgical consult A total of 32 mins of time was spent with coordination of care and counseling, in addition to the face to face time spent with the patient. ICD Codes: L02.91 - Cutaneous abscess, unspecified SNOMED: 308129283 (2) Palmoplantar pustulosis Assessment & Plan: Stable Cont zaheer lfoyd dced ICD Codes: L40.3 - Pustulosis palmaris et plantaris SNOMED: 28600122 Subjective Date patient seen: Aug 02, 2016 Time patient seen: 11:58 ROS Limited/Unobtainable: No Allergies: Coded Allergies: CEFDINIR (Verified Allergy, Unknown, 07/31/16) CEPHALEXIN (Verified Allergy, Unknown, 07/31/16) CIPROFLOXACIN (Verified Allergy, Unknown, 07/31/16) DOXYCYCLINE (Unverified Allergy, Unknown, 07/31/16) ERYTHROMYCIN BASE (Unverified Allergy, Unknown, 07/31/16) LEVOFLOXACIN (Verified Allergy, Unknown, 07/31/16) MORPHINE (Verified Allergy, Unknown, 07/31/16) MUPIROCIN (Verified Allergy, Unknown, 07/31/16) PENICILLINS (Unverified Allergy, Unknown, 07/31/16) SULFA (SULFONAMIDE ANTIBIOTICS) (Unverified Allergy, Unknown, 07/31/16) Uncoded Allergies: DOXACYCLINE (Allergy, Unknown, 07/31/16) ERYTHROMYCIN (Allergy, Unknown, 07/31/16) PENICILLIN (Allergy, Unknown, 07/31/16) SULFA (Allergy, Unknown, 07/31/16) Subjective s/p debridement surgery POD#2, no periop or postop complications, no chest pain or dyspnea, no n/v, having dinner at time of visit. Objective Last 24 Hour Vital Signs Date Time Temp Pulse Resp B/P Pulse Ox O2 Delivery O2 Flow Rate FiO2 08/02/16 08:00 18 08/02/16 08:00 99.5 92 20 120/64 91 Room Air 08/02/16 04:00 98.2 89 19 118/78 97 Room Air 08/02/16 03:28 18 08/02/16 00:56 98.4 88 18 113/77 95 Room Air 08/01/16 23:28 18 08/01/16 20:23 97.5 84 19 97/65 93 Room Air 08/01/16 19:28 18 08/01/16 17:36 65 17 93 08/01/16 16:00 96.8 65 17 122/62 93 Room Air 08/01/16 15:28 18 08/01/16 15:12 72 20 99 08/01/16 14:58 17 08/01/16 14:30 98.0 08/01/16 14:30 18 08/01/16 14:30 97.9 81 17 108/66 99 Nasal Cannula 2.0 08/01/16 14:16 98.0 84 16 121/72 100 Nasal Cannula 3.0 08/01/16 14:15 16 08/01/16 14:10 79 14 132/74 100 Nasal Cannula 3.0 08/01/16 14:00 15 08/01/16 14:00 82 15 140/76 100 Nasal Cannula 3.0 08/01/16 13:50 87 19 130/81 100 Nasal Cannula 3.0 08/01/16 13:42 16 08/01/16 13:40 84 16 126/74 100 Nasal Cannula 3.0 08/01/16 13:35 88 16 121/72 100 Simple Mask 6.0 08/01/16 13:30 74 12 116/67 97 Simple Mask 6.0 08/01/16 13:24 98.8 71 14 124/75 99 Simple Mask 6.0 Intake and Output 08/01/16 08/02/16 19:00 07:00 Intake Total 1350 ml 858.75 ml Output Total 250 ml 250 ml Balance 1100 ml 608.75 ml Intake Oral 250 ml 240 ml IV Total 1100 ml 618.75 ml Output Urine Total 200 ml 250 ml Estimated Blood Loss 50 ml Height (Feet): 5 Height (Inches): 7.00 Weight (Pounds): 220 Objective General: alert, cooperative, no distress, appears stated age Head: normocephalic, without obvious abnormality, atraumatic Eyes: conjunctivae/corneas clear. PERRL, EOM's intact Throat: lips, mucosa, and tongue normal. MMM Neck: supple, symmetrical, trachea midline, and no JVD Lungs: clear to auscultation bilaterally Heart: regular rate and rhythm, S1, S2 normal, no murmur, click, rub or gallop Abdomen: soft, non-tender, non-distended, bowel sounds normal; no masses or organomegaly Extremities: dressings c/d/i Pulses: 2+ and symmetric Skin: skin color, texture, turgor normal; no rashes or lesions Neurologic: grossly normal, no focal deficits ROBSON DAWN Aug 02, 2016 11:58
[2016-08-02 12:00] VITALS: BP 119/65
[2016-08-02] MEDS: D5NS 1,000 ML IV SCH (12:54)
[2016-08-02] MEDS: PCA HYDROmorphone 1mg/ml 30 ML IV PRN (13:33)
[2016-08-02 16:00] VITALS: BP 123/76
[2016-08-02 20:00] VITALS: BP 119/76
[2016-08-03] VITALS: BP_SYST 108; BP_SYST 113; BP_DIAS 73; BP_DIAS 76
[2016-08-03 04:00] VITALS: BP 108/73
[2016-08-03] MEDS: DiphenhydrAMINE 50mg/ml Inj IVP SCH ×2 (04:59→15:46)
[2016-08-03] MEDS: Vancomycin 750mg/D5W 275ml IVPB SCH ×4 (05:49→16:20)
[2016-08-03] MEDS: Heparin 5000 units/ml inj SUBQ SCH ×3 (05:52→21:36)
[2016-08-03] MEDS: PCA shift volume MISC SCH ×2 (07:10→19:06)
[2016-08-03 08:00] VITALS: BP 98/64
[2016-08-03] MEDS ORDERED: Rate Change PCA 1 Each MISC PRN (08:00)
[2016-08-03] MEDS ORDERED: PCA HYDROmorphone 1mg/ml 30 ML IV PRN (08:00)
[2016-08-03] MEDS: Venlafaxine XR 75mg cap ORAL SCH (08:26)
[2016-08-03] MEDS: Docusate 100mg cap ORAL SCH ×2 (08:26→17:35)
[2016-08-03] MEDS: D5NS 1,000 ML IV SCH (08:28)
[2016-08-03 12:00] VITALS: BP 113/67
--- NOTE | 2016-08-03 14:15 | General Progress Note ---
Assessment/Plan Problem List: (1) Abscess ICD Codes: L02.91 - Cutaneous abscess, unspecified SNOMED: 051763794 (2) Hidradenitis suppurativa ICD Codes: L73.2 - Hidradenitis suppurativa SNOMED: 46575167 (3) Urinary tract infection ICD Codes: N39.0 - Urinary tract infection, site not specified SNOMED: 96128170 Qualifiers: Qualified Codes: N30.00 - Acute cystitis without hematuria (4) Palmoplantar pustulosis ICD Codes: L40.3 - Pustulosis palmaris et plantaris SNOMED: 17905113 (5) E. coli UTI ICD Codes: N39.0 - Urinary tract infection, site not specified; B96.20 - Unspecified Escherichia coli [E. coli] as the cause of diseases classified elsewhere SNOMED: 367771164 Status: stable Assessment/Plan s/p excisional debridement of bilateral groin and lower abdominal tissues with flap elevation POD#2 Cont IV Vanco + Benadryl for pre-treatment Macrobid x 7d for E. Coli UTI f/u Blood cx Pain control Supp care Surgical consult Wound care per surgery A total of 32 mins of extra time was spent with patient [id number] in addition to normal encounter time for care/coordination and counseling. D/w pharmacy re abx for UTI Subjective Date patient seen: Aug 03, 2016 Time patient seen: 14:15 ROS Limited/Unobtainable: No Constitutional: Reports: no symptoms HEENT: Reports: no symptoms Cardiovascular: Reports: no symptoms Respiratory: Reports: no symptoms Gastrointestinal/Abdominal: Reports: no symptoms Genitourinary: Reports: no symptoms Neurologic/Psychiatric: Reports: no symptoms Endocrine: Reports: no symptoms Hematologic/Lymphatic: Reports: no symptoms Allergies: Coded Allergies: CEFDINIR (Verified Allergy, Unknown, 07/31/16) CEPHALEXIN (Verified Allergy, Unknown, 07/31/16) CIPROFLOXACIN (Verified Allergy, Unknown, 07/31/16) DOXYCYCLINE (Unverified Allergy, Unknown, 07/31/16) ERYTHROMYCIN BASE (Unverified Allergy, Unknown, 07/31/16) LEVOFLOXACIN (Verified Allergy, Unknown, 07/31/16) MORPHINE (Verified Allergy, Unknown, 07/31/16) MUPIROCIN (Verified Allergy, Unknown, 07/31/16) PENICILLINS (Unverified Allergy, Unknown, 07/31/16) SULFA (SULFONAMIDE ANTIBIOTICS) (Unverified Allergy, Unknown, 07/31/16) Uncoded Allergies: DOXACYCLINE (Allergy, Unknown, 07/31/16) ERYTHROMYCIN (Allergy, Unknown, 07/31/16) PENICILLIN (Allergy, Unknown, 07/31/16) SULFA (Allergy, Unknown, 07/31/16) Subjective Pt doing well Pain controlled Ambulating Denies f/c, n/v, d/c, chest pain, SOB Objective Last 24 Hour Vital Signs Date Time Temp Pulse Resp B/P Pulse Ox O2 Delivery O2 Flow Rate FiO2 08/03/16 13:57 99.0 08/03/16 12:00 18 08/03/16 12:00 99.0 91 17 113/67 96 Room Air 08/03/16 08:00 18 08/03/16 08:00 98.1 86 17 98/64 98 Room Air 08/03/16 04:00 98.2 87 20 108/73 90 Room Air 2.0 08/03/16 00:00 98.2 87 20 108/73 90 Room Air 08/03/16 00:00 98.2 80 20 113/76 92 Room Air 08/02/16 20:00 18 08/02/16 20:00 98.1 84 20 119/76 87 Room Air 08/02/16 16:00 98.2 72 18 123/76 97 Room Air Intake and Output 08/02/16 08/03/16 19:00 07:00 Intake Total 1988.75 ml 600 ml Output Total 1100 ml 250 ml Balance 888.75 ml 350 ml Intake Oral 1320 ml IV Total 668.75 ml 600 ml Output Urine Total 1100 ml 250 ml Laboratory Tests 08/02/16 16:00: Vancomycin Level Trough 10.7 Height (Feet): 5 Height (Inches): 7.00 Weight (Pounds): 220 Objective General: alert, cooperative, no distress, appears stated age Head: normocephalic, without obvious abnormality, atraumatic Eyes: conjunctivae/corneas clear. PERRL, EOM's intact Throat: lips, mucosa, and tongue normal. MMM Neck: supple, symmetrical, trachea midline, and no JVD Lungs: clear to auscultation bilaterally Heart: regular rate and rhythm, S1, S2 normal, no murmur, click, rub or gallop Abdomen: soft, non-tender, non-distended, bowel sounds normal; no masses or organomegaly Extremities: extremities normal, atraumatic, no cyanosis or edema Dressings c/d/i Pulses: 2+ and symmetric Skin: skin color, texture, turgor normal; no rashes or lesions Neurologic: grossly normal, no focal deficits Shorty Lemon M.D. Aug 03, 2016 14:15
[2016-08-03 16:00] VITALS: BP 118/64
[2016-08-03] MEDS ORDERED: D5NS 1000ml IV ONE ×2 (16:01)
--- NOTE | 2016-08-03 18:41 | Cardiology Report ---
APPROVED REPORT EKG Measurement Heart [id number] Normal sinus rhythm Normal ECG
[2016-08-03 20:00] VITALS: BP 110/66
[2016-08-04] VITALS (14 sets, daily range): BP systolic 108–153; BP diastolic 62–86
[2016-08-04] MEDS: D5NS 1,000 ML IV SCH ×2 (04:00→22:23)
[2016-08-04] MEDS: DiphenhydrAMINE 50mg/ml Inj IVP SCH ×2 (04:57→16:43)
[2016-08-04] MEDS: Vancomycin 750mg/D5W 275ml IVPB SCH ×4 (05:50→17:10)
[2016-08-04] MEDS: Heparin 5000 units/ml inj SUBQ SCH ×3 (05:59→21:21)
[2016-08-04] MEDS: PCA shift volume MISC SCH ×2 (07:02→19:18)
[2016-08-04] MEDS: Docusate 100mg cap ORAL SCH ×2 (09:00→17:10)
[2016-08-04] MEDS: Venlafaxine XR 75mg cap ORAL SCH (09:00)
[2016-08-04] MEDS ORDERED: Bacitracin 50000 Units Vial ONE (09:03)
[2016-08-04] MEDS ORDERED: Lidocaine 1% 10mg/ml/Epi 0.005mg/ml 30ml vial INJ ONE (09:03)
--- NOTE | 2016-08-04 10:40 | Anethesia Preoperative Eval ---
Anesthesia Pre-op PMH/ROS General Date of Evaluation: Aug 04, 2016 Time of Evaluation: 10:37 Anesthesiologist: Demar ASA Score: ASA 3 Mallampati Score Class I : Soft palate, uvula, fauces, pillars visible Class II: Soft palate, uvula, fauces visible Class III: Soft palate, base of uvula visible Class IV: Only hard plate visible Mallampati Classification: Class III Surgeon: Avila Diagnosis: Recurrent HS Surgical Procedure: Revision and closure of bilateral groin wounds Anesthesia History: none Family History: no anesthesia problems Allergies: Coded Allergies: CEFDINIR (Verified Allergy, Unknown, 07/31/16) CEPHALEXIN (Verified Allergy, Unknown, 07/31/16) CIPROFLOXACIN (Verified Allergy, Unknown, 07/31/16) DOXYCYCLINE (Unverified Allergy, Unknown, 07/31/16) ERYTHROMYCIN BASE (Unverified Allergy, Unknown, 07/31/16) LEVOFLOXACIN (Verified Allergy, Unknown, 07/31/16) MORPHINE (Verified Allergy, Unknown, 07/31/16) MUPIROCIN (Verified Allergy, Unknown, 07/31/16) PENICILLINS (Unverified Allergy, Unknown, 07/31/16) SULFA (SULFONAMIDE ANTIBIOTICS) (Unverified Allergy, Unknown, 07/31/16) Uncoded Allergies: DOXACYCLINE (Allergy, Unknown, 07/31/16) ERYTHROMYCIN (Allergy, Unknown, 07/31/16) PENICILLIN (Allergy, Unknown, 07/31/16) SULFA (Allergy, Unknown, 07/31/16) Medications: see eMAR Past Medical History Cardiovascular: Denies: CAD, HTN, MD, arrhythmia, other, valve dz Pulmonary: Reports: ANAMIKA, Denies: COPD, asthma, other Gastrointestinal/Genitourinary: Reports: GERD, Denies: CRI, ESRD, other Neurologic/Psychiatric: Reports: depression/anxiety, Denies: CVA, TIA, dementia, other Endocrine: Denies: DM, hypothyroidism, other, steroids HEENT: Denies: TYONEK (L), TYONEK (R), cataract (L), cataract (R), glaucoma, other Hematology/Immune: Reports: anemia - mild, Denies: DVT, bleeding disorder, other Musculoskeletal/Integumentary: Denies: DDD, DJD, OA, RA, edema, other Other: obesity PMH Narrative: as above PSxH Narrative: see chart Anesthesia Pre-op Phys. Exam Physician Exam Last Vital Signs Date Time Temp Pulse Resp B/P Pulse Ox O2 Delivery O2 Flow Rate FiO2 08/04/16 08:26 98.6 87 20 108/70 93 Room Air 08/03/16 04:00 2.0 Constitutional: NAD Neurologic: CN 2-12 intact Cardiovascular: RRR, no M/R/G Respiratory: CTA Gastrointestinal: other - obesity Airway Exam Mallampati Score: Class III MO: full Neck: short ROM: full Teeth: intact Dentures: no lower, no upper Anesthesia Pre-op A/P Labs see chart Risk Assessment & Plan Assessment: ASA 3 Plan: GA with ETT Status Change Before Surgery: No Pre-Antibiotics Drug: as scheduled Given Within 1 Hr of Incision: GERTRUDE Foreman M.D. Aug 04, 2016 10:40
[2016-08-04] MEDS ORDERED: Surgicel 4in x 8in TOPIC ONE (11:01)
--- NOTE | 2016-08-04 11:24 | General Progress Note ---
Assessment/Plan Problem List: (1) Abscess Assessment & Plan: s/p debridement POD#4 ContIV abx, vanco IV to run over 4 hours, iwona pre-treatment has worked for her in the past f/u Blood cx Pain control Supp care Surgical consult A total of 32 mins of time was spent with coordination of care and counseling, in addition to the face to face time spent with the patient. ICD Codes: L02.91 - Cutaneous abscess, unspecified SNOMED: 530276163 (2) Palmoplantar pustulosis Assessment & Plan: Stable Cont zaheer floyd dced ICD Codes: L40.3 - Pustulosis palmaris et plantaris SNOMED: 69518930 Subjective Date patient seen: Aug 04, 2016 Time patient seen: 11:23 ROS Limited/Unobtainable: No Allergies: Coded Allergies: CEFDINIR (Verified Allergy, Unknown, 07/31/16) CEPHALEXIN (Verified Allergy, Unknown, 07/31/16) CIPROFLOXACIN (Verified Allergy, Unknown, 07/31/16) DOXYCYCLINE (Unverified Allergy, Unknown, 07/31/16) ERYTHROMYCIN BASE (Unverified Allergy, Unknown, 07/31/16) LEVOFLOXACIN (Verified Allergy, Unknown, 07/31/16) MORPHINE (Verified Allergy, Unknown, 07/31/16) MUPIROCIN (Verified Allergy, Unknown, 07/31/16) PENICILLINS (Unverified Allergy, Unknown, 07/31/16) SULFA (SULFONAMIDE ANTIBIOTICS) (Unverified Allergy, Unknown, 07/31/16) Uncoded Allergies: DOXACYCLINE (Allergy, Unknown, 07/31/16) ERYTHROMYCIN (Allergy, Unknown, 07/31/16) PENICILLIN (Allergy, Unknown, 07/31/16) SULFA (Allergy, Unknown, 07/31/16) Subjective s/p debridement surgery POD#3, no periop or postop complications, no chest pain or dyspnea, no n/v. No significant overnight events. Objective Last 24 Hour Vital Signs Date Time Temp Pulse Resp B/P Pulse Ox O2 Delivery O2 Flow Rate FiO2 08/04/16 08:26 98.6 87 20 108/70 93 Room Air 08/04/16 08:00 18 08/04/16 04:15 97.5 75 19 122/80 98 Room Air 6/19/17 04:00 16 08/04/16 00:11 98.1 82 18 120/70 97 Room Air 08/04/16 00:00 18 08/03/16 20:00 98.2 80 19 110/66 92 Room Air 08/03/16 20:00 20 08/03/16 16:00 99.1 91 20 118/64 94 Room Air 08/03/16 16:00 20 08/03/16 13:57 99.0 08/03/16 12:00 18 08/03/16 12:00 99.0 91 17 113/67 96 Room Air Intake and Output 08/03/16 08/04/16 19:00 07:00 Intake Total 1200 ml 790 ml Output Total 750 ml 1250 ml Balance 450 ml -460 ml Intake Oral 700 ml 240 ml IV Total 500 ml 550 ml Output Urine Total 750 ml 1250 ml Height (Feet): 5 Height (Inches): 7.00 Weight (Pounds): 220 Objective General: alert, cooperative, no distress, appears stated age Head: normocephalic, without obvious abnormality, atraumatic Eyes: conjunctivae/corneas clear. PERRL, EOM's intact Throat: lips, mucosa, and tongue normal. MMM Neck: supple, symmetrical, trachea midline, and no JVD Lungs: clear to auscultation bilaterally Heart: regular rate and rhythm, S1, S2 normal, no murmur, click, rub or gallop Abdomen: soft, non-tender, non-distended, bowel sounds normal; no masses or organomegaly Extremities: dressings c/d/i Pulses: 2+ and symmetric Skin: skin color, texture, turgor normal; no rashes or lesions Neurologic: grossly normal, no focal deficits ROBSON DAWN Aug 04, 2016 11:24
--- NOTE | 2016-08-04 11:43 | Pre-Procedure Note/Attestation ---
Pre-Procedure Note/Attestation Complete Prior to Procedure Planned Procedure: bilateral Procedure Narrative: Closure of bilateral groin and lower abdominal wounds Indications for Procedure Pre-Operative Diagnosis: Bilateral infected groin and lower abdominal tissues Attestation I attest that I discussed the nature of the procedure; its benefits; risks and complications; and alternatives (and the risks and benefits of such alternatives ), prior to the procedure, with the patient (or the patient's legal field representatives director). I attest that, if there was a reasonable possibility of needing a blood transfusion, the patient (or the patient's legal field representatives director) was given the [facility] standardized written summary, pursuant to the [place] Blood Safety Act ([place] Health and Safety Code # 1645, as amended). I attest that I re-evaluated the patient just prior to the surgery and that there has been no change in the patient's H&P, except as documented below: FRANCO ALVARADO Aug 04, 2016 11:43
--- NOTE | 2016-08-04 11:44 | Operative Note - PDOC ---
Operative Note Operative Note Pre-op Diagnosis: Bilateral open groin and lower abdominal wounds Procedure: Closure of bilateral groin and lower abdominal wound Surgeon: [employer] Instructor: Ayla Anesthesia: general Specimen: yes Complications: none Condition: stable Estimated Blood Loss: minimal Drains: TRANG Implant(s) used?: No FRANCO ALVARADO Aug 04, 2016 11:44
[2016-08-04] MEDS ORDERED: Zolpidem 5mg tab ORAL PRN (11:45)
[2016-08-04] MEDS ORDERED: Succinylcholine 20mg/ml 10ml vial ONE (12:00)
[2016-08-04] MEDS ORDERED: NS Irrig 1000ml ONE (12:00)
[2016-08-04] MEDS ORDERED: LR 1000ml ONE (12:00)
[2016-08-04] MEDS ORDERED: Midazolam 2mg/2ml Inj ONE (12:00)
[2016-08-04] MEDS ORDERED: Propofol 10mg/ml 20ml IV ONE (12:00)
[2016-08-04] MEDS ORDERED: fentaNYL 250mcg/5ml ONE (12:00)
[2016-08-04] MEDS ORDERED: Neostigmine 1mg/ml 10ml Inj ONE (12:00)
[2016-08-04] MEDS ORDERED: Sterile Water Irrig 1000ml IRRIG ONE (12:00)
[2016-08-04] MEDS ORDERED: Ketorolac 30mg Inj ONE (12:00)
[2016-08-04] MEDS ORDERED: NS Irrig 1000ml IRRIG ONE (12:44)
[2016-08-04] MEDS ORDERED: LR 1000ml 1,000 ML IVLG SCH (12:51)
[2016-08-04] MEDS ORDERED: Midazolam 2mg/2ml Inj IVP PRN (13:00)
[2016-08-04] MEDS ORDERED: DiphenhydrAMINE 50mg/ml Inj IVP PRN (13:00)
[2016-08-04] MEDS ORDERED: Hydromorphone 0.5mg/0.5ml inj IVP PRN (13:00)
[2016-08-04] MEDS ORDERED: Metoclopramide 10mg/2ml Inj IVP PRN (13:00)
[2016-08-04] MEDS ORDERED: Meperidine 25mg/0.5ml Inj IV PRN (13:00)
[2016-08-04] MEDS ORDERED: Rate Change PCA 1 Each MISC PRN (13:30)
--- NOTE | 2016-08-04 14:29 | Immediate Post-Op Evaluation ---
Immediate Post-Op Evalulation Immediate Post-Op Evalulation Procedure: Bilateral revision and closure of groin wounds Date of Evaluation: Aug 04, 2016 Time of Evaluation: 14:27 IV Fluids: 800 Blood Products: none Estimated Blood Loss: <50 Urinary Output: 148 Blood Pressure Systolic: 142 Blood Pressure Diastolic: 83 Pulse Rate: 85 Respiratory Rate: 22 O2 Sat by Pulse Oximetry: 98 Temperature (Fahrenheit): 97.5 Pain Score (1-10): 2 Nausea: No Vomiting: No Complications NONE Patient Status: reacts, patent, extubated, none Hydration Status: adequate GERTRUDE JENKINS M.D. Aug 04, 2016 14:29
[2016-08-04] MEDS: PCA HYDROmorphone 1mg/ml 30 ML IV PRN (14:32)
--- NOTE | 2016-08-04 17:30 | Operative Note - Dictated ---
DATE OF OPERATION: 08/04/2016 PREOPERATIVE DIAGNOSES: Bilateral open groin wounds and open left lower abdominal wound. POSTOPERATIVE DIAGNOSES: Bilateral open groin wounds and open left lower abdominal wound. PROCEDURES: 1. Abdominal wound preparation for flap closure. 2. Right groin wound prep preparation for flap closure. 3. Left groin wound preparation for flap closure. 4. Adjacent tissue transfer closure of left lower abdominal wound measuring 40 sq cm. 5. Right groin medial thigh flap readvancement for closure of 100 sq cm wound. 6. Left groin medial thigh flap readvancement for closure of 120 sq cm wound. SURGEON: Aydee Gramajo M.D. COMM[employer]ITY [employer]IATION MANAGER: Susy Aguila M.D. ANESTHESIA: General. COMPLICATIONS: None. DRAINS: Included a size 15 TRANG in each wound. DISPOSITION: Stable to the recovery room. INDICATIONS FOR SURGERY: This is a 36-year-old female, who is now 72 hours postoperative from radical excision of infected tissues of her lower abdomen and her groins. She has been undergoing wet-to-dry dressing with IV antibiotics and is now prepared to undergo definitive flap advancement closure of her wounds. She understands the risks and benefits of surgery and agrees to proceed. DETAILS OF THE OPERATION: The patient was brought to the operating room and laid in the lithotomy position on the operating room table. Her abdomen, perineum, upper thigh, and groin regions were prepped and draped in a sterile and usual fashion. We first began by debriding the lower abdominal wound of its nonviable tissue and readvanced the flaps that have been previously elevated to allow for adjacent tissue transfer. Once the wound was debrided and copiously irrigated with pulse lavage, hemostasis was then achieved. The defect that remained was 40 sq cm. We were able to then re-advance the flaps to allow for adjacent tissue transfer closure of the wound using #0 and 2-0 Vicryl sutures and 2-0 Prolene was used to close the skin. We then turned our attention to the right groin wound, which measured 100 sq cm. The wound edges were debrided of its nonviable tissue. Once this was done, the medial thigh flap that had been previously elevated was then readvanced by releasing the proximal and distal attachments with perforators off the superficial femoral artery left intact to perfuse the flap and the flap could then be brought to the opposing edge without any tension and this was done after hemostasis was achieved with pulse lavage irrigation over 15 Real-Hui drain using #0 and 2-0 Vicryl sutures and 2-0 Prolene was used to close the skin. We then turned our attention to the left groin wound, which measured 120 sq cm. The wound was prepared for definitive flap transfer by debriding the nonviable tissue and scar within the wound substance and the medial thigh flap that was previously raised had to be readvanced by releasing the proximal and distal attachments of the flap with perforators off the superficial femoral artery for perfusion of flap and left untouched and the flap could then be easily advanced over TRANG drain after pulse lavage irrigation and hemostasis being achieved. The wound edges were brought together as the flap was advanced using #0 and 2-0 Vicryl sutures and 2-0 Prolene was used to close the skin and this was again closed over a size 15 Real-Hui drain. The patient tolerated the procedure well. There were no complications. Aydee Gramajo M.D. DR: TANIKA JOB#: [id number] CC:
--- NOTE | 2016-08-04 17:48 | Operative Note - PDOC ---
Operative Note Operative Note Pre-op Diagnosis: Bilateral open groin and lower abdominal wounds Procedure: Closure of bilateral groin and lower abdominal wound Surgeon: Avila Db2 Dba: Ayla Anesthesia: general Specimen: yes Complications: none Condition: stable Estimated Blood Loss: minimal Drains: TRANG Implant(s) used?: No FRANCO ALVARADO Aug 04, 2016 17:48
[2016-08-05 00:21] VITALS: BP 125/82
[2016-08-05] MEDS: DiphenhydrAMINE 50mg/ml Inj IVP SCH ×2 (04:13→16:55)
[2016-08-05 04:31] VITALS: BP 98/55
[2016-08-05] MEDS: Vancomycin 750mg/D5W 275ml IVPB SCH ×4 (05:04→17:20)
[2016-08-05] MEDS: Heparin 5000 units/ml inj SUBQ SCH ×3 (05:07→23:07)
[2016-08-05] MEDS: PCA shift volume MISC SCH ×2 (07:25→19:00)
[2016-08-05 08:00] VITALS: BP 103/71
[2016-08-05] MEDS: Docusate 100mg cap ORAL SCH ×2 (08:26→18:00)
[2016-08-05] MEDS: Venlafaxine XR 75mg cap ORAL SCH (08:29)
--- NOTE | 2016-08-05 09:41 | 48 Hour Post Anesthesia Eval ---
Post Anesthesia Evaluation Procedure: Bilateral revision and closure of groin wounds Date of Evaluation: Aug 05, 2016 Time of Evaluation: 11:05 Blood Pressure Systolic: 103 0: 71 Pulse Rate: 92 Respiratory Rate: 18 Temperature (Fahrenheit): 96.1 O2 Sat by Pulse Oximetry: 93 Airway: patent Nausea: No Vomiting: No Pain Intensity: 4 Hydration Status: adequate Cardiopulmonary Status: Stable Mental Status/LOC: patient returned to baseline Follow-up Care/Observations: As per surgery Post-Anesthesia Complications: No anesthetic complication Follow-up care needed: N/A QASIM ROGERS M.D. Aug 05, 2016 09:41
[2016-08-05 12:00] VITALS: BP 106/71
--- NOTE | 2016-08-05 14:33 | General Progress Note ---
Progress Note Progress Note Pt seen and examined. She is POD# 1 from closure of groin wounds. Doing well. Will take down dressings in AM. FRANCO Duenas MD Aug 05, 2016 14:33
--- NOTE | 2016-08-05 14:34 | General Progress Note ---
Assessment/Plan Problem List: (1) Abscess Assessment & Plan: s/p debridement ContIV abx, vanco IV to run over 4 hours, iwona pre-treatment has worked for her in the past f/u Blood cx Pain control Supp care Surgical consult ICD Codes: L02.91 - Cutaneous abscess, unspecified SNOMED: 949367593 (2) Palmoplantar pustulosis Assessment & Plan: Stable Cont otzaheer mayfield dced ICD Codes: L40.3 - Pustulosis palmaris et plantaris SNOMED: 62615814 Subjective Date patient seen: Aug 05, 2016 Time patient seen: 14:33 ROS Limited/Unobtainable: No Allergies: Coded Allergies: CEFDINIR (Verified Allergy, Unknown, 07/31/16) CEPHALEXIN (Verified Allergy, Unknown, 07/31/16) CIPROFLOXACIN (Verified Allergy, Unknown, 07/31/16) DOXYCYCLINE (Unverified Allergy, Unknown, 07/31/16) ERYTHROMYCIN BASE (Unverified Allergy, Unknown, 07/31/16) LEVOFLOXACIN (Verified Allergy, Unknown, 07/31/16) MORPHINE (Verified Allergy, Unknown, 07/31/16) MUPIROCIN (Verified Allergy, Unknown, 07/31/16) PENICILLINS (Unverified Allergy, Unknown, 07/31/16) SULFA (SULFONAMIDE ANTIBIOTICS) (Unverified Allergy, Unknown, 07/31/16) Subjective s/p debridement surgery POD#4, no periop or postop complications, no chest pain or dyspnea, no n/v. No significant overnight events. Objective Last 24 Hour Vital Signs Date Time Temp Pulse Resp B/P Pulse Ox O2 Delivery O2 Flow Rate FiO2 08/05/16 12:00 99.1 92 20 106/71 93 Room Air 08/05/16 12:00 20 08/05/16 09:41 92 18 93 08/05/16 08:00 18 08/05/16 08:00 96.1 92 19 103/71 93 Room Air 08/05/16 04:31 98.6 92 17 98/55 96 Room Air 08/05/16 04:00 17 08/05/16 00:21 97.5 80 19 125/82 97 Nasal Cannula 2.0 08/05/16 00:00 16 08/04/16 20:27 98.1 85 19 115/71 99 Nasal Cannula 2.0 08/04/16 20:00 17 08/04/16 16:13 97.4 93 20 115/68 99 Nasal Cannula 2.0 08/04/16 15:45 16 08/04/16 15:45 99.4 98 16 120/67 98 Nasal Cannula 3.0 08/04/16 15:30 15 08/04/16 15:30 97 15 128/64 98 Nasal Cannula 3.0 08/04/16 15:15 97 21 109/72 100 Nasal Cannula 3.0 08/04/16 15:15 21 08/04/16 15:02 98.6 08/04/16 15:02 98.6 08/04/16 15:00 95 18 132/84 100 Nasal Cannula 3.0 08/04/16 15:00 18 08/04/16 14:50 93 12 141/86 100 Simple Mask 6.0 08/04/16 14:45 12 08/04/16 14:40 91 13 133/70 99 Simple Mask 6.0 Intake and Output 08/04/16 08/05/16 19:00 07:00 Intake Total 1335 ml 1120 ml Output Total 575 ml 695 ml Balance 760 ml 425 ml Intake Oral 285 ml 420 ml IV Total 1050 ml 700 ml Output Urine Total 500 ml 660 ml Drainage Total 25 ml 35 ml Estimated Blood Loss 50 ml # Voids 1 Height (Feet): 5 Height (Inches): 7.00 Weight (Pounds): 220 Objective General: alert, cooperative, no distress, appears stated age Head: normocephalic, without obvious abnormality, atraumatic Eyes: conjunctivae/corneas clear. PERRL, EOM's intact Throat: lips, mucosa, and tongue normal. MMM Neck: supple, symmetrical, trachea midline, and no JVD Lungs: clear to auscultation bilaterally Heart: regular rate and rhythm, S1, S2 normal, no murmur, click, rub or gallop Abdomen: soft, non-tender, non-distended, bowel sounds normal; no masses or organomegaly Extremities: dressings c/d/i Pulses: 2+ and symmetric Skin: skin color, texture, turgor normal; no rashes or lesions Neurologic: grossly normal, no focal deficits ROBSON DAWN Aug 05, 2016 14:34
[2016-08-05] MEDS: PCA HYDROmorphone 1mg/ml 30 ML IV PRN (15:21)
[2016-08-05 16:00] VITALS: BP 110/68
[2016-08-05 20:00] VITALS: BP 118/68
[2016-08-05] MEDS: D5NS 1,000 ML IV SCH (20:12)
[2016-08-06 00:22] VITALS: BP 122/69
[2016-08-06 04:00] VITALS: BP 107/65
[2016-08-06] MEDS: DiphenhydrAMINE 50mg/ml Inj IVP SCH ×2 (04:38→16:00)
[2016-08-06] MEDS: Vancomycin 750mg/D5W 275ml IVPB SCH ×2 (05:00)
[2016-08-06] MEDS ORDERED: Vancomycin 750mg Inj IVPB ONE (05:17)
[2016-08-06] MEDS: Heparin 5000 units/ml inj SUBQ SCH ×3 (06:59→20:55)
[2016-08-06] MEDS: PCA shift volume MISC SCH ×2 (07:00→19:00)
[2016-08-06 08:00] VITALS: BP 93/51
[2016-08-06] MEDS: Venlafaxine XR 75mg cap ORAL SCH (08:56)
[2016-08-06] MEDS: Docusate 100mg cap ORAL SCH ×2 (08:56→17:24)
[2016-08-06] MEDS: Dyna-Hex 2% Top Sol 8oz TOPIC SCH (09:31)
[2016-08-06 12:00] VITALS: BP 115/74
[2016-08-06] MEDS ORDERED: PCA HYDROmorphone 1mg/ml 30 ML IV PRN (12:45)
[2016-08-06] MEDS ORDERED: Rate Change PCA 1 Each MISC PRN (12:45)
[2016-08-06 16:00] VITALS: BP 93/66
[2016-08-06] MEDS: D5NS 1,000 ML IV SCH (16:02)
--- NOTE | 2016-08-06 18:28 | General Progress Note ---
Assessment/Plan Problem List: (1) Abscess Assessment & Plan: s/p debridement ContIV abx, vanco IV to run over 4 hours, iwona pre-treatment has worked for her in the past f/u Blood cx Pain control Supp care Surgical consult ICD Codes: L02.91 - Cutaneous abscess, unspecified SNOMED: [id number] (2) Palmoplantar pustulosis Assessment & Plan: Stable Cont zaheer floyd dced ICD Codes: L40.3 - Pustulosis palmaris et plantaris SNOMED: 03615439 Subjective Date patient seen: Aug 06, 2016 Time patient seen: 18:28 ROS Limited/Unobtainable: No Allergies: Coded Allergies: CEFDINIR (Verified Allergy, Unknown, 07/31/16) CEPHALEXIN (Verified Allergy, Unknown, 07/31/16) CIPROFLOXACIN (Verified Allergy, Unknown, 07/31/16) DOXYCYCLINE (Unverified Allergy, Unknown, 07/31/16) ERYTHROMYCIN BASE (Unverified Allergy, Unknown, 07/31/16) LEVOFLOXACIN (Verified Allergy, Unknown, 07/31/16) MORPHINE (Verified Allergy, Unknown, 07/31/16) MUPIROCIN (Verified Allergy, Unknown, 07/31/16) PENICILLINS (Unverified Allergy, Unknown, 07/31/16) SULFA (SULFONAMIDE ANTIBIOTICS) (Unverified Allergy, Unknown, 07/31/16) Subjective s/p debridement surgery POD#5, no periop or postop complications, no chest pain or dyspnea, no n/v. No significant overnight events. Objective Last 24 Hour Vital Signs Date Time Temp Pulse Resp B/P Pulse Ox O2 Delivery O2 Flow Rate FiO2 08/06/16 16:00 16 08/06/16 16:00 99.7 75 18 93/66 94 Room Air 08/06/16 12:30 16 08/06/16 12:00 97.9 81 16 115/74 94 Room Air 08/06/16 08:00 16 08/06/16 08:00 98.4 90 16 93/51 93 Room Air 08/06/16 06:04 101.6 08/06/16 05:13 101.6 08/06/16 04:00 16 08/06/16 04:00 101.7 68 18 107/65 88 Room Air 08/06/16 00:22 100.0 97 19 122/69 89 Room Air 08/06/16 00:00 16 08/05/16 20:00 17 08/05/16 20:00 100.6 90 20 118/68 90 Room Air Intake and Output 08/05/16 08/06/16 19:00 07:00 Intake Total 1250 ml 1010 ml Output Total 350 ml 445 ml Balance 900 ml 565 ml Intake Oral 750 ml 360 ml IV Total 500 ml 650 ml Output Urine Total 350 ml 400 ml Drainage Total 45 ml # Voids 1 Height (Feet): 5 Height (Inches): 7.00 Weight (Pounds): 220 Objective General: alert, cooperative, no distress, appears stated age Head: normocephalic, without obvious abnormality, atraumatic Eyes: conjunctivae/corneas clear. PERRL, EOM's intact Throat: lips, mucosa, and tongue normal. MMM Neck: supple, symmetrical, trachea midline, and no JVD Lungs: clear to auscultation bilaterally Heart: regular rate and rhythm, S1, S2 normal, no murmur, click, rub or gallop Abdomen: soft, non-tender, non-distended, bowel sounds normal; no masses or organomegaly Extremities: dressings c/d/i Pulses: 2+ and symmetric Skin: skin color, texture, turgor normal; no rashes or lesions Neurologic: grossly normal, no focal deficits ROBSON DAWN Aug 06, 2016 18:28
[2016-08-06 20:19] VITALS: BP 130/74
[2016-08-06] MEDS: Vancomycin 1250mg/D5W 275ml IVPB SCH ×2 (23:00)
[2016-08-06] MEDS ORDERED: Vancomycin 1250mg/D5W 275ml IVPB SCH ×2 (23:00)
[2016-08-06] MEDS ORDERED: Vancomycin 1gm inj IVPB ONE (23:29)
[2016-08-06] MEDS: DiphenhydrAMINE 50mg/ml Inj IVP PRN (23:54)
[2016-08-07] VITALS (15 sets, daily range): BP systolic 100–157; BP diastolic 41–78
[2016-08-07] MEDS: DiphenhydrAMINE 50mg/ml Inj IVP SCH ×3 (04:30→16:30)
[2016-08-07] MEDS: Heparin 5000 units/ml inj SUBQ SCH ×2 (05:48→20:42)
[2016-08-07] MEDS: Milk of Magnesia 30ml Ud ORAL PRN (05:48)
[2016-08-07] MEDS: PCA shift volume MISC SCH ×2 (07:19→19:00)
[2016-08-07 09:18] LABS: BASOPHILS % (AUTO) 0.5 % (0.0-2.0); EOSINOPHILS % (AUTO) 2.3 % (0.0-3.0); MEAN CORPUSCULAR HEMOGLOBIN 30.8 PG (27.0-31.0); MEAN CORPUSCULAR HGB CONC 33.7 G/DL (32.0-36.0); MEAN CORPUSCULAR VOLUME 91 FL (80-99); MEAN PLATELET VOLUME 6.2 FL (6.5-10.1); MONOCYTES % (AUTO) 8.9 % (1.0-10.0); NEUTROPHILS % (AUTO) 76.4 % (45.0-75.0); PLATELET COUNT 248 K/UL (150-450); RED BLOOD COUNT 3.47 M/UL (4.20-5.40); WHITE BLOOD COUNT 14.2 K/UL (4.8-10.8)
[2016-08-07] MEDS: Dyna-Hex 2% Top Sol 8oz TOPIC SCH (09:44)
[2016-08-07] MEDS: Docusate 100mg cap ORAL SCH ×2 (09:44→18:00)
[2016-08-07] MEDS: Venlafaxine XR 75mg cap ORAL SCH (09:44)
[2016-08-07] MEDS: Vancomycin 1250mg/D5W 275ml IVPB SCH ×2 (11:00)
[2016-08-07] MEDS: D5NS 1,000 ML IV SCH (12:00)
--- NOTE | 2016-08-07 13:10 | Pre-Procedure Note/Attestation ---
Pre-Procedure Note/Attestation Complete Prior to Procedure Planned Procedure: bilateral Procedure Narrative: Bilateral groin debridement and washout Indications for Procedure Pre-Operative Diagnosis: Bilateral open groin and lower abdominal wounds Attestation I attest that I discussed the nature of the procedure; its benefits; risks and complications; and alternatives (and the risks and benefits of such alternatives ), prior to the procedure, with the patient (or the patient's legal quality audit representative). I attest that, if there was a reasonable possibility of needing a blood transfusion, the patient (or the patient's legal quality audit representative) was given the [facility] standardized written summary, pursuant to the [place] Blood Safety Act ([place] Health and Safety Code # 1645, as amended). I attest that I re-evaluated the patient just prior to the surgery and that there has been no change in the patient's H&P, except as documented below: FRANCO ALVARADO Aug 07, 2016 13:10
[2016-08-07] MEDS ORDERED: Sterile Water Irrig 1000ml IRRIG ONE (13:30)
[2016-08-07] MEDS ORDERED: fentaNYL 100 mcg/2 mL IV ONE (13:30)
[2016-08-07] MEDS ORDERED: Lidocaine 1% MPF 10mg/ml 5ml ONE (13:30)
[2016-08-07] MEDS ORDERED: NS Irrig 1000ml ONE (13:30)
[2016-08-07] MEDS ORDERED: Dexamethasone 4mg/ml vial ONE (13:30)
[2016-08-07] MEDS ORDERED: LR 1000ml ONE (13:30)
[2016-08-07] MEDS ORDERED: Propofol 10mg/ml 20ml IV ONE (13:30)
[2016-08-07] MEDS ORDERED: Lidocaine 1% 10mg/ml/Epi 0.005mg/ml 30ml vial INJ ONE (13:31)
[2016-08-07] MEDS ORDERED: Bacitracin 50000 Units Vial ONE (13:31)
--- NOTE | 2016-08-07 13:56 | Immediate Post-Op Evaluation ---
Immediate Post-Op Evalulation Immediate Post-Op Evalulation Procedure: Bilateral revision and closure of groin wounds Date of Evaluation: Aug 07, 2016 Time of Evaluation: 14:39 IV Fluids: 200 LR Blood Products: 0 Estimated Blood Loss: 20 Urinary Output: 0 Blood Pressure Systolic: 153 Blood Pressure Diastolic: 71 Pulse Rate: 78 Respiratory Rate: 16 O2 Sat by Pulse Oximetry: 100 Temperature (Fahrenheit): 97.4 Pain Score (1-10): 2 Nausea: No Vomiting: No Complications 0 Patient Status: awake, reacts, patent, extubated, none Hydration Status: adequate Drug: On Floor Ralph Leach MD Aug 07, 2016 13:56
[2016-08-07] MEDS ORDERED: LORazepam Inj 2mg/ml 1ml IV PRN (14:00)
[2016-08-07] MEDS ORDERED: Atropine Inj 1mg/10ml Syr IV PRN (14:00)
[2016-08-07] MEDS ORDERED: Ketorolac 60mg Inj IV PRN (14:00)
[2016-08-07] MEDS ORDERED: Oxycodone/Acetaminophen 5-325 ORAL PRN (14:00)
[2016-08-07] MEDS ORDERED: Metoclopramide 10mg/2ml Inj IVP PRN ×2 (14:00→14:15)
[2016-08-07] MEDS ORDERED: Midazolam 2mg/2ml Inj IVP PRN (14:00)
[2016-08-07] MEDS ORDERED: fentaNYL 100 mcg/2 mL IV PRN (14:00)
[2016-08-07] MEDS ORDERED: Hydromorphone 0.5mg/0.5ml inj IVP PRN (14:00)
[2016-08-07] MEDS ORDERED: DiphenhydrAMINE 50mg/ml Inj IVP PRN (14:00)
[2016-08-07] MEDS ORDERED: Norco 7.5mg/325mg tab ORAL PRN (14:00)
[2016-08-07] MEDS ORDERED: Meperidine 25mg/0.5ml Inj IV PRN (14:00)
[2016-08-07] MEDS ORDERED: Norco 5mg/325mg tab ORAL PRN (14:00)
[2016-08-07] MEDS ORDERED: Ketorolac 30mg Inj IV PRN (14:00)
[2016-08-07] MEDS ORDERED: Zolpidem 5mg tab ORAL PRN (14:15)
--- NOTE | 2016-08-07 14:15 | Operative Note - PDOC ---
Operative Note Operative Note Pre-op Diagnosis: Bilateral groin wound infections Procedure: Exploration and drainage of bilateral groin wounds Surgeon: [employer] Contractor: Ayla Anesthesia: general Specimen: yes Complications: none Condition: stable Estimated Blood Loss: minimal Drains: none Implant(s) used?: No FRANCO ALVARADO Aug 07, 2016 14:15
[2016-08-07] MEDS ORDERED: Acetaminophen (Non formulary) 100 ML IV ONE (14:30)
--- NOTE | 2016-08-07 14:53 | General Progress Note ---
Assessment/Plan Problem List: (1) Abscess Assessment & Plan: s/p debridement ContIV abx, vanco IV to run over 4 hours, iwona pre-treatment has worked for her in the past f/u Blood cx Pain control Supp care Surgical consult ICD Codes: L02.91 - Cutaneous abscess, unspecified SNOMED: 384198264 (2) Palmoplantar pustulosis Assessment & Plan: Stable Cont zaheer floyd dced ICD Codes: L40.3 - Pustulosis palmaris et plantaris SNOMED: 42323589 Subjective Date patient seen: Aug 07, 2016 Time patient seen: 14:52 ROS Limited/Unobtainable: No Allergies: Coded Allergies: CEFDINIR (Verified Allergy, Unknown, 07/31/16) CEPHALEXIN (Verified Allergy, Unknown, 07/31/16) CIPROFLOXACIN (Verified Allergy, Unknown, 07/31/16) DOXYCYCLINE (Unverified Allergy, Unknown, 07/31/16) ERYTHROMYCIN BASE (Unverified Allergy, Unknown, 07/31/16) LEVOFLOXACIN (Verified Allergy, Unknown, 07/31/16) MORPHINE (Verified Allergy, Unknown, 07/31/16) MUPIROCIN (Verified Allergy, Unknown, 07/31/16) PENICILLINS (Unverified Allergy, Unknown, 07/31/16) SULFA (SULFONAMIDE ANTIBIOTICS) (Unverified Allergy, Unknown, 07/31/16) Subjective s/p debridement surgery POD#6, no periop or postop complications, no chest pain or dyspnea, no n/v. No significant overnight events. Objective Last 24 Hour Vital Signs Date Time Temp Pulse Resp B/P Pulse Ox O2 Delivery O2 Flow Rate FiO2 08/07/16 14:38 78 15 157/54 100 Simple Mask 6.0 08/07/16 14:33 78 12 119/60 100 Simple Mask 6.0 08/07/16 14:30 78 16 100 08/07/16 14:28 97.4 78 27 153/41 100 Simple Mask 6.0 08/07/16 12:00 97.5 81 18 114/69 92 Room Air 08/07/16 12:00 18 08/07/16 11:02 97.0 08/07/16 08:40 97.0 92 18 127/63 93 Room Air 08/07/16 08:00 16 08/07/16 04:00 99.5 90 19 126/58 90 Room Air 08/07/16 04:00 16 08/07/16 00:34 99.4 91 18 122/60 93 Room Air 08/07/16 00:00 16 08/06/16 20:19 100.0 86 19 130/74 93 Room Air 08/06/16 20:00 16 08/06/16 16:00 16 08/06/16 16:00 99.7 75 18 93/66 94 Room Air Intake and Output 08/06/16 08/07/16 19:00 07:00 Intake Total 1293.65 ml 660 ml Output Total 1063 ml 720 ml Balance 230.65 ml -60 ml Intake Oral 600 ml 360 ml IV Total 693.65 ml 300 ml Output Urine Total 950 ml 650 ml Drainage Total 113 ml 70 ml # Voids 1 Laboratory Tests 08/06/16 20:50: Random Vancomycin Level 5.5 08/07/16 08:50: White Blood Count 14.2H, Red Blood Count 3.47L, Hemoglobin 10.7L, Hematocrit 31.6L, Mean Corpuscular Volume 91, Mean Corpuscular Hemoglobin 30.8, Mean Corpuscular Hemoglobin Concent 33.7, Red Cell Distribution Width 12.0, Platelet Count 248, Mean Platelet Volume 6.2L, Neutrophils (%) (Auto) 76.4H, Lymphocytes (%) (Auto) 12.0L, Monocytes (%) (Auto) 8.9, Eosinophils (%) (Auto) 2.3, Basophils (%) (Auto) 0.5 Height (Feet): 5 Height (Inches): 7.00 Weight (Pounds): 220 Objective General: alert, cooperative, no distress, appears stated age Head: normocephalic, without obvious abnormality, atraumatic Eyes: conjunctivae/corneas clear. PERRL, EOM's intact Throat: lips, mucosa, and tongue normal. MMM Neck: supple, symmetrical, trachea midline, and no JVD Lungs: clear to auscultation bilaterally Heart: regular rate and rhythm, S1, S2 normal, no murmur, click, rub or gallop Abdomen: soft, non-tender, non-distended, bowel sounds normal; no masses or organomegaly Extremities: dressings c/d/i Pulses: 2+ and symmetric Skin: skin color, texture, turgor normal; no rashes or lesions Neurologic: grossly normal, no focal deficits ROBSON DAWN Aug 07, 2016 14:53
[2016-08-07] MEDS: PCA HYDROmorphone 1mg/ml 30 ML IV PRN (15:10)
[2016-08-07] MEDS ORDERED: Rate Change PCA 1 Each MISC PRN (15:15)
[2016-08-07] MEDS ORDERED: Tubing IV Secondary IV ONE (15:29)
[2016-08-07] MEDS ORDERED: D5W 275ml ONE (15:29)
[2016-08-07] MEDS ORDERED: D5NS 1000ml IV ONE (15:29)
[2016-08-07] MEDS ORDERED: NS 550ML IV ONE (15:29)
[2016-08-07] MEDS ORDERED: LR 1000ml 1,000 ML IVLG SCH (16:30)
--- NOTE | 2016-08-07 17:00 | Operative Note - Dictated ---
DATE OF OPERATION: 08/07/2016 PREOPERATIVE DIAGNOSIS: Bilateral groin wound infection status post groin reconstruction. POSTOPERATIVE DIAGNOSIS: Bilateral groin wound infection status post groin reconstruction. PROCEDURES: 1. Bilateral groin wound exploration. 2. Drainage of bilateral groin wounds. SURGEON: Aydee Gramajo M.D. HYPERCIL CORE TRANSFORMER ASSEMBLER: Susy Aguila M.D. ANESTHESIA: General. COMPLICATIONS: None. DRAINS: None. CULTURES: Sent included fluid from bilateral groins. DISPOSITION: Stable to the recovery room. INDICATIONS FOR SURGERY: This is a 36-year-old female, who is three days postoperative from bilateral groin wound reconstruction. She had been doing well until yesterday where she was noted to have some fever and some redness on her left thigh in particular. On re-examination today, the redness seemed to be extending on the left thigh and she spiked a temperature with elevated white count up to 14, so I felt to be an appropriate candidate for exploration and drainage of her groin wounds. She understood the risks and benefits of surgery and agreed to proceed. DETAILS OF THE OPERATION: The patient was brought to the operating room and laid in the lithotomy position on the operating table. Her bilateral groins were prepped and draped in a sterile and usual fashion. She had evidence of clear cellulitis on both groins, however the left groin appeared to be more cellulitic. The stitches of total of six were opened on the left side as well on the right side and approximately 2-3 mL of pus was evacuated from the left side and brought the same on the right side. There appeared to be significant amount of induration to the left thigh in particular, however, and not so much induration on the right. The fluid was then sent for culture for aerobic, anaerobic, fungal, and TB. The pulse lavage irrigation was used, 500 mL on each side to irrigate and cleanse the wounds. The wounds was then left open and packed with Betadine-soaked Kerlix. The plan will be to perform wet-to-dry dressing changes at the bed side over the next several days. The patient tolerated the procedure well. There were no complications. Aydee Gramajo M.D. DR: ASIA JOB#: [id number] CC:
[2016-08-07] MEDS ORDERED: Gentamicin Rx monitoring MISC PRN (17:30)
--- NOTE | 2016-08-07 17:39 | Infectious Diseases Prog Note ---
Assessment/Plan Assessment/Plan Ful consult dictated: A) 1) bilateral groin wound infection 2) s/p debridement 3) hidradenitis suppurativa 4) e.coli uti 5) leukocytosis and fevers 6) multiple abx allergies - can tolerate vancomycin and gentamicin with benadryl pre-medication 7) palmoplantar pustulosis P) 1) vancomycin and gentamicin with benadryl premedication 2) check cultures, labs 3) continue treatment per Dr. Pang and Dr. Gramajo 4) d/w pt and mother at length 5) d/w RN 6) thank you Subjective Allergies: Coded Allergies: CEFDINIR (Verified Allergy, Unknown, 07/31/16) CEPHALEXIN (Verified Allergy, Unknown, 07/31/16) CIPROFLOXACIN (Verified Allergy, Unknown, 07/31/16) DOXYCYCLINE (Unverified Allergy, Unknown, 07/31/16) ERYTHROMYCIN BASE (Unverified Allergy, Unknown, 07/31/16) LEVOFLOXACIN (Verified Allergy, Unknown, 07/31/16) MORPHINE (Verified Allergy, Unknown, 07/31/16) MUPIROCIN (Verified Allergy, Unknown, 07/31/16) PENICILLINS (Unverified Allergy, Unknown, 07/31/16) SULFA (SULFONAMIDE ANTIBIOTICS) (Unverified Allergy, Unknown, 07/31/16) Objective Vital Signs Last 24 Hour Vital Signs Date Time Temp Pulse Resp B/P Pulse Ox O2 Delivery O2 Flow Rate FiO2 08/07/16 16:30 97.5 76 18 117/62 100 Nasal Cannula 3.0 08/07/16 15:50 98.0 74 13 121/78 100 Nasal Cannula 3.0 08/07/16 15:40 14 08/07/16 15:40 98.0 08/07/16 15:35 70 13 101/59 100 Simple Mask 6.0 08/07/16 15:25 11 08/07/16 15:20 74 12 101/64 100 Simple Mask 6.0 08/07/16 15:10 15 08/07/16 15:05 76 19 100/63 100 Simple Mask 6.0 08/07/16 14:50 77 19 138/49 100 Simple Mask 6.0 08/07/16 14:38 78 15 157/54 100 Simple Mask 6.0 08/07/16 14:33 78 12 119/60 100 Simple Mask 6.0 08/07/16 14:30 78 16 100 08/07/16 14:28 97.4 78 27 153/41 100 Simple Mask 6.0 08/07/16 12:00 97.5 81 18 114/69 92 Room Air 08/07/16 12:00 18 08/07/16 11:02 97.0 08/07/16 08:40 97.0 92 18 127/63 93 Room Air 08/07/16 08:00 16 08/07/16 04:00 99.5 90 19 126/58 90 Room Air 08/07/16 04:00 16 08/07/16 00:34 99.4 91 18 122/60 93 Room Air 08/07/16 00:00 16 08/06/16 20:19 100.0 86 19 130/74 93 Room Air 08/06/16 20:00 16 Height (Feet): 5 Height (Inches): 7.00 Weight (Pounds): 220 Laboratory Tests Test 08/06/16 20:50 08/07/16 08:50 Random Vancomycin Level 5.5 ug/mL White Blood Count 14.2 K/UL (4.8-10.8) H Red Blood Count 3.47 M/UL (4.20-5.40) L Hemoglobin 10.7 G/DL (12.0-16.0) L Hematocrit 31.6 % (37.0-47.0) L Mean Corpuscular Volume 91 FL (80-99) Mean Corpuscular Hemoglobin 30.8 PG (27.0-31.0) Mean Corpuscular Hemoglobin Concent 33.7 G/DL (32.0-36.0) Red Cell Distribution Width 12.0 % (11.6-14.8) Platelet Count 248 K/UL (150-450) Mean Platelet Volume 6.2 FL (6.5-10.1) L Neutrophils (%) (Auto) 76.4 % (45.0-75.0) H Lymphocytes (%) (Auto) 12.0 % (20.0-45.0) L Monocytes (%) (Auto) 8.9 % (1.0-10.0) Eosinophils (%) (Auto) 2.3 % (0.0-3.0) Basophils (%) (Auto) 0.5 % (0.0-2.0) Current Medications Medications (Trade) Dose Ordered Sig/Clovis Route PRN Reason Start Time Stop Time Status Last Admin Dose Admin Acetaminophen (Tylenol) 650 mg Q4H PRN ORAL Mild Pain (Pain Scale 1-3) 07/31/16 18:45 08/30/16 18:44 08/06/16 05:05 Acetaminophen 650 mg 650 mg Q4H PRN ORAL FEVER 08/07/16 14:15 09/06/16 14:14 Acetaminophen/ Hydrocodone Bitart ([place] 5/325) 1 tab Q1H PRN ORAL Mild Pain (Pain Scale 1-3) 08/07/16 14:00 08/07/16 19:00 Acetaminophen/ Hydrocodone Bitart ([place] 7.5/325) 1 ea Q1H PRN ORAL Moderate Pain (Pain Scale 4-6) 08/07/16 14:00 08/07/16 19:00 Al Hydroxide/Mg Hydroxide (Mylanta II) 30 ml Q6H PRN ORAL dyspepsia 07/31/16 18:45 08/30/16 18:44 Al Hydroxide/Mg Hydroxide (Mylanta) 15 ml Q1H PRN ORAL gi upset 08/07/16 14:00 08/07/16 19:00 Atropine Sulfate 0.5 mg 0.5 mg Q5M PRN IV HR <40 08/07/16 14:00 08/07/16 19:00 Bisacodyl (Dulcolax) 10 mg HSPRN PRN RECTAL Constipation 07/31/16 18:45 08/30/16 18:44 Chlorhexidine Gluconate 1 applic 1 applic DAILY TOPIC 08/06/16 10:00 09/05/16 09:59 08/07/16 09:44 Dextrose (Dextrose 50%) STAT PRN IV Hypoglycemia 07/31/16 18:45 08/30/16 18:44 Dextrose/Sodium Chloride (D5ns) 1,000 ml @ 50 mls/hr Q20H IV 07/31/16 20:00 08/30/16 19:59 08/06/16 16:02 Diphenhydramine HCl (Benadryl) 12.5 mg Q6H PRN IVP Itching/Pruritis 08/01/16 10:45 08/31/16 10:44 08/06/16 23:54 Diphenhydramine HCl (Benadryl) 25 mg Q15M PRN IVP Itching 08/07/16 14:00 08/07/16 19:00 Diphenhydramine HCl (Benadryl) 100 mg Q12HR@0430,1630 IVP 08/02/16 16:30 09/01/16 16:29 08/07/16 10:31 Docusate Sodium (Colace) 100 mg TWICE A DAY ORAL 08/01/16 21:00 08/31/16 20:59 08/07/16 09:44 Fentanyl Citrate (Sublimaze 100 mcg/2 mL) 25 mcg Q10M PRN IV Moderate Pain (Pain Scale 4-6) 08/07/16 14:00 08/07/16 19:00 Heparin Sodium (Porcine) (Heparin 5000 units/ml) 5,000 units EVERY 8 HOURS SUBQ 08/07/16 22:00 09/06/16 21:59 Hydralazine HCl (Apresoline) 5 mg Q30M PRN IV SBP>160 / DBP>90 08/07/16 14:00 08/07/16 19:00 Hydromorphone HCl (Dilaudid) 0.5 mg Q15M PRN IVP Severe Pain (Pain Scale 7-10) 08/07/16 14:00 08/07/16 19:00 Hydromorphone HCl (Dilaudid) 2 mg Q3H PRN SUBQ Severe Pain (Pain Scale 7-10) 08/07/16 17:00 08/09/16 16:59 Hydromorphone HCl (Dilaudid) 2 mg Q4H PRN IVP Moderate Pain (Pain Scale 4-6) 08/07/16 17:00 08/09/16 16:59 Hydromorphone HCl (CHIEF ENTERPRISE ARCHITECT Dilaudid) 30 ml @ 0 mls/hr Q24H PRN IV For Pain 08/07/16 15:00 08/09/16 14:59 08/07/16 15:10 Ketorolac Tromethamine (Toradol 30mg) 15 mg Q1H PRN IV Moderate Breakthru Pain (5-7) 08/07/16 14:00 08/07/16 19:00 Ketorolac Tromethamine (Toradol) 60 mg Q1H PRN IV Severe Breakthru Pain (>7) 08/07/16 14:00 08/07/16 19:00 Lactated Ringer's (Lactated Ringer's 1000ml) 1,000 ml @ 10 mls/hr Q24H IVLG 08/07/16 16:30 08/07/16 19:00 Lorazepam (Ativan 2mg/ml 1ml) 0.5 mg Q4H PRN IV For Anxiety 07/31/16 18:45 08/07/16 18:44 Lorazepam (Ativan 2mg/ml 1ml) 1 mg Q15M PRN IV For Anxiety 08/07/16 14:00 08/07/16 19:00 Magnesium Hydroxide (Mom) 30 ml HSPRN PRN ORAL Constipation 07/31/16 18:45 08/30/16 18:44 08/07/16 05:48 Meperidine HCl (Demerol) 25 mg Q5M PRN IV Shivering. May repeat x 1 08/07/16 14:00 08/07/16 19:00 Metoclopramide HCl (Reglan) 10 mg Q1H PRN IVP Nausea & Vomiting 08/07/16 14:00 08/07/16 19:00 Metoclopramide HCl (Reglan) 10 mg Q6H PRN IVP Nausea & Vomiting 08/07/16 14:15 09/06/16 14:14 Midazolam HCl (Versed 2mg/2ml vial) 1 mg Q15M PRN IVP For Anxiety 08/07/16 14:00 08/07/16 19:00 Miscellaneous Medication (CHIEF ENTERPRISE ARCHITECT Rate Change) 1 ea DAILYPRN PRN MISC rate change 08/07/16 15:15 08/09/16 15:14 Miscellaneous Medication (CHIEF ENTERPRISE ARCHITECT shift volume) 1 ea Q12HR@0700,1900 MISC 08/07/16 19:00 08/09/16 18:59 Nitrofurantoin (Macrobid) 100 mg EVERY 12 HOURS ORAL 08/03/16 18:00 08/10/16 09:01 08/07/16 09:44 Ondansetron HCl (Zofran) 4 mg Q1H PRN IVP Nausea & Vomiting 08/07/16 14:00 08/07/16 19:00 Ondansetron HCl (Zofran) 4 mg Q6H PRN IVP Nausea & Vomiting 08/07/16 14:15 09/06/16 14:14 Oxycodone/ Acetaminophen (Percocet 5-325) 1 tab Q1H PRN ORAL Severe Pain (Pain Scale 7-10) 08/07/16 14:00 08/07/16 19:00 Polyethylene Glycol (Miralax) 17 gm HSPRN PRN ORAL Constipation 07/31/16 18:45 08/30/16 18:44 Vancomycin HCl (Vanco rx to dose) 1 ea DAILY PRN MISC Per rx protocol 07/31/16 18:45 08/30/16 18:44 Vancomycin HCl/ Dextrose (Vancomycin/D5W) 275 ml @ 68.75 mls/ hr Q12H IVPB 08/06/16 23:00 08/11/16 22:59 08/07/16 11:00 Venlafaxine HCl 75 mg 75 mg DAILY ORAL 08/01/16 09:00 08/31/16 08:59 08/07/16 09:44 Zolpidem Tartrate (Ambien) 5 mg DAILYPRN PRN ORAL Insomnia 08/07/16 14:15 09/06/16 14:14 ESTHER SIMPSON Aug 07, 2016 17:39
[2016-08-07] MEDS ORDERED: DiphenhydrAMINE 50mg/ml Inj IV PRN (17:45)
[2016-08-07] MEDS ORDERED: Gentamicin inj 400 MG in NS 110 ML IVPB SCH (21:00)
[2016-08-08] VITALS: BP 110/69
[2016-08-08] MEDS: Vancomycin 1250mg/D5W 275ml IVPB SCH ×6 (00:10→23:48)
[2016-08-08] MEDS: DiphenhydrAMINE 50mg/ml Inj IVP SCH ×4 (00:10→22:48)
[2016-08-08 04:00] VITALS: BP 102/56
[2016-08-08] MEDS: Heparin 5000 units/ml inj SUBQ SCH ×3 (05:33→22:58)
[2016-08-08] MEDS: PCA shift volume MISC SCH ×2 (07:13→19:00)
[2016-08-08] MEDS: D5NS 1,000 ML IV SCH (08:00)
[2016-08-08 08:28] VITALS: BP 113/65
[2016-08-08] MEDS: Docusate 100mg cap ORAL SCH ×2 (09:19→16:18)
[2016-08-08] MEDS: Venlafaxine XR 75mg cap ORAL SCH (09:19)
[2016-08-08] MEDS: Dyna-Hex 2% Top Sol 8oz TOPIC SCH (09:20)
[2016-08-08 09:59] LABS: BASOPHILS % (AUTO) 0.7 % (0.0-2.0); EOSINOPHILS % (AUTO) 0.3 % (0.0-3.0); LYMPHOCYTES % (AUTO) 13.5 % (20.0-45.0); MEAN CORPUSCULAR HEMOGLOBIN 30.1 PG (27.0-31.0); MEAN CORPUSCULAR HGB CONC 32.8 G/DL (32.0-36.0); MEAN CORPUSCULAR VOLUME 92 FL (80-99); MEAN PLATELET VOLUME 6.3 FL (6.5-10.1); MONOCYTES % (AUTO) 4.1 % (1.0-10.0); NEUTROPHILS % (AUTO) 81.4 % (45.0-75.0); PLATELET COUNT 320 K/UL (150-450); RED BLOOD COUNT 3.79 M/UL (4.20-5.40); RED CELL DISTRIBUTION WIDTH 11.9 % (11.6-14.8); WHITE BLOOD COUNT 14.7 K/UL (4.8-10.8)
[2016-08-08 11:26] LABS: ANION GAP 15 (5-15); CALCIUM 8.7 mg/dL (8.6-10.2); CARBON DIOXIDE 31 mEQ/L (20-30); CHLORIDE 92 mEQ/L (98-107); GLOMERULAR FILTRATION RATE > 60 mL/min (>60); HEMOLYSIS 4; SODIUM 138 mEQ/L (135-145)
[2016-08-08 12:00] VITALS: BP 118/76
--- NOTE | 2016-08-08 12:02 | Infectious Diseases Prog Note ---
Assessment/Plan Assessment/Plan A) 1) bilateral groin wound infection 2) s/p debridement 3) hidradenitis suppurativa 4) e.coli uti 5) leukocytosis and fevers 6) multiple abx allergies - can tolerate vancomycin, gentamicin and invanz with benadryl pre-medication 7) palmoplantar pustulosis 8) mar noted, notes and records reviewed, fh-nc, sh-negative 9) d/w RN P) 1) vancomycin and invanz with benadryl premedication 2) check cultures, labs 3) continue treatment per Dr. Pang and Dr. Gramajo 4) orders entered and noted 5) d/w pharmacy Subjective Constitutional: Denies: fever HEENT: Denies: congestion Respiratory: Denies: shortness of breath Cardiovascular: Denies: chest pain Gastrointestinal/Abdominal: Denies: nausea, vomiting Neurologic: Denies: headache Psychiatric: Denies: depression Skin: Denies: rash Allergies: Coded Allergies: CEFDINIR (Verified Allergy, Unknown, 07/31/16) CEPHALEXIN (Verified Allergy, Unknown, 07/31/16) CIPROFLOXACIN (Verified Allergy, Unknown, 07/31/16) DOXYCYCLINE (Unverified Allergy, Unknown, 07/31/16) ERYTHROMYCIN BASE (Unverified Allergy, Unknown, 07/31/16) LEVOFLOXACIN (Verified Allergy, Unknown, 07/31/16) MORPHINE (Verified Allergy, Unknown, 07/31/16) MUPIROCIN (Verified Allergy, Unknown, 07/31/16) PENICILLINS (Unverified Allergy, Unknown, 07/31/16) SULFA (SULFONAMIDE ANTIBIOTICS) (Unverified Allergy, Unknown, 07/31/16) Objective Vital Signs Last 24 Hour Vital Signs Date Time Temp Pulse Resp B/P Pulse Ox O2 Delivery O2 Flow Rate FiO2 08/08/16 09:50 98.1 08/08/16 08:28 98.1 81 20 113/65 95 Room Air 08/08/16 08:00 16 08/08/16 04:00 16 08/08/16 04:00 97.7 68 20 102/56 89 Room Air 08/08/16 00:00 98.2 83 20 110/69 89 Room Air 08/08/16 00:00 16 08/07/16 20:00 98.5 86 18 111/67 95 Room Air 08/07/16 20:00 16 08/07/16 17:30 98.0 67 20 126/74 98 Room Air 08/07/16 16:30 97.5 76 18 117/62 100 Nasal Cannula 3.0 08/07/16 15:50 98.0 74 13 121/78 100 Nasal Cannula 3.0 08/07/16 15:40 14 08/07/16 15:40 98.0 08/07/16 15:35 70 13 101/59 100 Simple Mask 6.0 08/07/16 15:25 11 08/07/16 15:20 74 12 101/64 100 Simple Mask 6.0 08/07/16 15:10 15 08/07/16 15:05 76 19 100/63 100 Simple Mask 6.0 08/07/16 14:50 77 19 138/49 100 Simple Mask 6.0 08/07/16 14:38 78 15 157/54 100 Simple Mask 6.0 08/07/16 14:33 78 12 119/60 100 Simple Mask 6.0 08/07/16 14:30 78 16 100 08/07/16 14:28 97.4 78 27 153/41 100 Simple Mask 6.0 08/07/16 12:00 97.5 81 18 114/69 92 Room Air 08/07/16 12:00 18 Height (Feet): 5 Height (Inches): 7.00 Weight (Pounds): 220 General Appearance: no acute distress HEENT: normocephalic, atraumatic, anicteric, mucous membranes moist, PERRL, EOMI, pharynx normal, supple Respiratory/Chest: lungs clear, normal breath sounds, no respiratory distress, no accessory muscle use Cardiovascular: normal rate, regular rhythm, no gallop/murmur, no JVD Abdomen: normal bowel sounds, soft, non tender, no organomegaly, non distended Genitourinary: other - + christensen Extremities: no cyanosis Skin: no rash, other - wounds covered Neurologic/Psychiatric: feather maker II-XII grossly normal, alert, oriented x 3, responsive Lymphatic: no neck adenopathy Musculoskeletal: no effusion Objective Labs Test 08/06/16 20:50 08/07/16 08:50 08/08/16 08:50 08/08/16 10:35 Random Vancomycin Level 5.5 ug/mL White Blood Count 14.2 K/UL (4.8-10.8) 14.7 K/UL (4.8-10.8) Red Blood Count 3.47 M/UL (4.20-5.40) 3.79 M/UL (4.20-5.40) Hemoglobin 10.7 G/DL (12.0-16.0) 11.4 G/DL (12.0-16.0) Hematocrit 31.6 % (37.0-47.0) 34.8 % (37.0-47.0) Mean Corpuscular Volume 91 FL (80-99) 92 FL (80-99) Mean Corpuscular Hemoglobin 30.8 PG (27.0-31.0) 30.1 PG (27.0-31.0) Mean Corpuscular Hemoglobin Concent 33.7 G/DL (32.0-36.0) 32.8 G/DL (32.0-36.0) Red Cell Distribution Width 12.0 % (11.6-14.8) 11.9 % (11.6-14.8) Platelet Count 248 K/UL (150-450) 320 K/UL (150-450) Mean Platelet Volume 6.2 FL (6.5-10.1) 6.3 FL (6.5-10.1) Neutrophils (%) (Auto) 76.4 % (45.0-75.0) 81.4 % (45.0-75.0) Lymphocytes (%) (Auto) 12.0 % (20.0-45.0) 13.5 % (20.0-45.0) Monocytes (%) (Auto) 8.9 % (1.0-10.0) 4.1 % (1.0-10.0) Eosinophils (%) (Auto) 2.3 % (0.0-3.0) 0.3 % (0.0-3.0) Basophils (%) (Auto) 0.5 % (0.0-2.0) 0.7 % (0.0-2.0) Sodium Level 138 mEQ/L (135-145) Potassium Level 4.0 mEQ/L (3.4-4.9) Chloride Level 92 mEQ/L (98-107) Carbon Dioxide Level 31 mEQ/L (20-30) Anion Gap 15 (5-15) Blood Urea Nitrogen 11 mg/dL (7-23) Creatinine 1.0 mg/dL (0.5-0.9) Estimat Glomerular Filtration Rate > 60 mL/min (>60) Glucose Level 141 mg/dL (74-106) Calcium Level 8.7 mg/dL (8.6-10.2) Random Gentamicin Level 1.8 ug/mL Vancomycin Level Trough 10.2 ug/mL (5.0-12.0) Microbiology Date/Time Source Procedure Growth Status 07/31/16 13:34 Urine,Clean Catch Urine Culture - Final Escherichia Coli Complete Laboratory Tests Test 08/08/16 08:50 08/08/16 10:35 White Blood Count 14.7 K/UL (4.8-10.8) H Red Blood Count 3.79 M/UL (4.20-5.40) L Hemoglobin 11.4 G/DL (12.0-16.0) L Hematocrit 34.8 % (37.0-47.0) L Mean Corpuscular Volume 92 FL (80-99) Mean Corpuscular Hemoglobin 30.1 PG (27.0-31.0) Mean Corpuscular Hemoglobin Concent 32.8 G/DL (32.0-36.0) Red Cell Distribution Width 11.9 % (11.6-14.8) Platelet Count 320 K/UL (150-450) Mean Platelet Volume 6.3 FL (6.5-10.1) L Neutrophils (%) (Auto) 81.4 % (45.0-75.0) H Lymphocytes (%) (Auto) 13.5 % (20.0-45.0) L Monocytes (%) (Auto) 4.1 % (1.0-10.0) Eosinophils (%) (Auto) 0.3 % (0.0-3.0) Basophils (%) (Auto) 0.7 % (0.0-2.0) Sodium Level 138 mEQ/L (135-145) Potassium Level 4.0 mEQ/L (3.4-4.9) Chloride Level 92 mEQ/L (98-107) L Carbon Dioxide Level 31 mEQ/L (20-30) H Anion Gap 15 (5-15) Blood Urea Nitrogen 11 mg/dL (7-23) Creatinine 1.0 mg/dL (0.5-0.9) H Estimat Glomerular Filtration Rate > 60 mL/min (>60) Glucose Level 141 mg/dL (74-106) H Calcium Level 8.7 mg/dL (8.6-10.2) Random Gentamicin Level 1.8 ug/mL Vancomycin Level Trough 10.2 ug/mL (5.0-12.0) Current Medications Medications (Trade) Dose Ordered Sig/Cl[place] Route PRN Reason Start Time Stop Time Status Last Admin Dose Admin Acetaminophen (Tylenol) 650 mg Q4H PRN ORAL Mild Pain (Pain Scale 1-3) 07/31/16 18:45 08/30/16 18:44 08/06/16 05:05 Acetaminophen 650 mg 650 mg Q4H PRN ORAL FEVER 08/07/16 14:15 09/06/16 14:14 Al Hydroxide/Mg Hydroxide (Mylanta II) 30 ml Q6H PRN ORAL dyspepsia 07/31/16 18:45 08/30/16 18:44 Bisacodyl (Dulcolax) 10 mg HSPRN PRN RECTAL Constipation 07/31/16 18:45 08/30/16 18:44 Chlorhexidine Gluconate 1 applic 1 applic DAILY TOPIC 08/06/16 10:00 09/05/16 09:59 08/08/16 09:20 Dextrose (Dextrose 50%) STAT PRN IV Hypoglycemia 07/31/16 18:45 08/30/16 18:44 Dextrose/Sodium Chloride (D5ns) 1,000 ml @ 50 mls/hr Q20H IV 07/31/16 20:00 08/30/16 19:59 08/06/16 16:02 Diphenhydramine HCl (Benadryl) 12.5 mg Q6H PRN IVP Itching/Pruritis 08/01/16 10:45 08/31/16 10:44 08/06/16 23:54 Diphenhydramine HCl (Benadryl) 100 mg Q12HR@0430,1630 IVP 08/02/16 16:30 09/01/16 16:29 08/08/16 11:19 Diphenhydramine HCl 50 mg 50 mg Q24H PRN IV 30MIN PRIOR TO GENTAMICIN DOSE 08/07/16 17:45 09/06/16 17:44 08/07/16 20:41 Docusate Sodium (Colace) 100 mg TWICE A DAY ORAL 08/01/16 21:00 08/31/16 20:59 08/08/16 09:19 Gentamicin Protocol (Gentamicin pharmacy to dose) 1 ea DAILY PRN MISC Per rx protocol 08/07/16 17:30 09/06/16 17:29 Gentamicin Sulfate/Sodium Chloride (Gentamicin inj/ Sodium Chloride) 120 ml @ 120 mls/hr Q24H IVPB 08/07/16 21:00 08/14/16 20:59 08/07/16 22:00 Heparin Sodium (Porcine) (Heparin 5000 units/ml) 5,000 units EVERY 8 HOURS SUBQ 08/07/16 22:00 09/06/16 21:59 08/08/16 05:33 Hydromorphone HCl (Dilaudid) 2 mg Q3H PRN SUBQ Severe Pain (Pain Scale 7-10) 08/07/16 17:00 08/09/16 16:59 Hydromorphone HCl (Dilaudid) 2 mg Q4H PRN IVP Moderate Pain (Pain Scale 4-6) 08/07/16 17:00 08/09/16 16:59 08/08/16 09:20 Hydromorphone HCl (PATCHING MACHINE OPERATOR Dilaudid) 30 ml @ 0 mls/hr Q24H PRN IV For Pain 08/07/16 15:00 08/09/16 14:59 08/07/16 15:10 Magnesium Hydroxide (Mom) 30 ml HSPRN PRN ORAL Constipation 07/31/16 18:45 08/30/16 18:44 08/07/16 05:48 Metoclopramide HCl (Reglan) 10 mg Q6H PRN IVP Nausea & Vomiting 08/07/16 14:15 09/06/16 14:14 Miscellaneous Medication (PATCHING MACHINE OPERATOR Rate Change) 1 ea DAILYPRN PRN MISC rate change 08/07/16 15:15 08/09/16 15:14 Miscellaneous Medication (PATCHING MACHINE OPERATOR shift volume) 1 ea Q12HR@0700,1900 MISC 08/07/16 19:00 08/09/16 18:59 08/08/16 07:13 Nitrofurantoin (Macrobid) 100 mg EVERY 12 HOURS ORAL 08/03/16 18:00 08/10/16 09:01 08/08/16 09:19 Ondansetron HCl (Zofran) 4 mg Q6H PRN IVP Nausea & Vomiting 08/07/16 14:15 09/06/16 14:14 Polyethylene Glycol (Miralax) 17 gm HSPRN PRN ORAL Constipation 07/31/16 18:45 08/30/16 18:44 Vancomycin HCl (Vanco rx to dose) 1 ea DAILY PRN MISC Per rx protocol 07/31/16 18:45 08/30/16 18:44 Vancomycin HCl/ Dextrose (Vancomycin/D5W) 275 ml @ 68.75 mls/ hr Q12H IVPB 08/06/16 23:00 08/11/16 22:59 08/08/16 11:53 Venlafaxine HCl 75 mg 75 mg DAILY ORAL 08/01/16 09:00 08/31/16 08:59 08/08/16 09:19 Zolpidem Tartrate (Ambien) 5 mg DAILYPRN PRN ORAL Insomnia 08/07/16 14:15 09/06/16 14:14 ESTHER SIMPSON Aug 08, 2016 12:02
[2016-08-08] MEDS: Milk of Magnesia 30ml Ud ORAL PRN (16:18)
[2016-08-08] MEDS: DiphenhydrAMINE 50mg/ml Inj IV SCH (16:19)
--- NOTE | 2016-08-08 16:19 | General Progress Note ---
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 SNOMED: 14638452 Subjective Date patient seen: Aug 08, 2016 Time patient seen: 16:18 ROS Limited/Unobtainable: No Allergies: Coded Allergies: CEFDINIR (Verified Allergy, Unknown, 07/31/16) CEPHALEXIN (Verified Allergy, Unknown, 07/31/16) CIPROFLOXACIN (Verified Allergy, Unknown, 07/31/16) DOXYCYCLINE (Unverified Allergy, Unknown, 07/31/16) ERYTHROMYCIN BASE (Unverified Allergy, Unknown, 07/31/16) LEVOFLOXACIN (Verified Allergy, Unknown, 07/31/16) MORPHINE (Verified Allergy, Unknown, 07/31/16) MUPIROCIN (Verified Allergy, Unknown, 07/31/16) PENICILLINS (Unverified Allergy, Unknown, 07/31/16) SULFA (SULFONAMIDE ANTIBIOTICS) (Unverified Allergy, Unknown, 07/31/16) Subjective s/p debridement surgery POD#7, s/p further I+D POD#1, no periop or postop complications, no chest pain or dyspnea, no n/v. No significant overnight events. Objective Last 24 Hour Vital Signs Date Time Temp Pulse Resp B/P Pulse Ox O2 Delivery O2 Flow Rate FiO2 08/08/16 12:00 98.8 88 21 118/76 97 Room Air 08/08/16 12:00 21 08/08/16 09:50 98.1 08/08/16 08:28 98.1 81 20 113/65 95 Room Air 08/08/16 08:00 16 08/08/16 04:00 16 08/08/16 04:00 97.7 68 20 102/56 89 Room Air 08/08/16 00:00 98.2 83 20 110/69 89 Room Air 08/08/16 00:00 16 08/07/16 20:00 98.5 86 18 111/67 95 Room Air 08/07/16 20:00 16 08/07/16 17:30 98.0 67 20 126/74 98 Room Air 08/07/16 16:30 97.5 76 18 117/62 100 Nasal Cannula 3.0 Intake and Output 08/07/16 08/08/16 19:00 07:00 Intake Total 640 ml 400 ml Output Total 1170 ml 1 ml Balance -530 ml 399 ml Intake Oral 240 ml 250 ml IV Total 400 ml 150 ml Output Urine Total 1150 ml Drainage Total 0 ml 1 ml Estimated Blood Loss 20 ml Laboratory Tests 08/08/16 08:50: White Blood Count 14.7H, Red Blood Count 3.79L, Hemoglobin 11.4L, Hematocrit 34.8L, Mean Corpuscular Volume 92, Mean Corpuscular Hemoglobin 30.1, Mean Corpuscular Hemoglobin Concent 32.8, Red Cell Distribution Width 11.9, Platelet Count 320, Mean Platelet Volume 6.3L, Neutrophils (%) (Auto) 81.4H, Lymphocytes (%) (Auto) 13.5L, Monocytes (%) (Auto) 4.1, Eosinophils (%) (Auto) 0.3, Basophils (%) (Auto) 0.7, Sodium Level 138, Potassium Level 4.0, Chloride Level 92L, Carbon Dioxide Level 31H, Anion Gap 15, Blood Urea Nitrogen 11, Creatinine 1.0H, Estimat Glomerular Filtration Rate > 60, Glucose Level 141H, Calcium Level 8.7, Random Gentamicin Level 1.8 08/08/16 10:35: Vancomycin Level Trough 10.2 Height (Feet): 5 Height (Inches): 7.00 Weight (Pounds): 220 Objective General: alert, cooperative, no distress, appears stated age Head: normocephalic, without obvious abnormality, atraumatic Eyes: conjunctivae/corneas clear. PERRL, EOM's intact Throat: lips, mucosa, and tongue normal. MMM Neck: supple, symmetrical, trachea midline, and no JVD Lungs: clear to auscultation bilaterally Heart: regular rate and rhythm, S1, S2 normal, no murmur, click, rub or gallop Abdomen: soft, non-tender, non-distended, bowel sounds normal; no masses or organomegaly Extremities: dressings c/d/i Pulses: 2+ and symmetric Skin: skin color, texture, turgor normal; no rashes or lesions Neurologic: grossly normal, no focal deficits ROBSON DAWN Aug 08, 2016 16:19
[2016-08-08 16:43] VITALS: BP 102/63
--- NOTE | 2016-08-08 17:59 | 48 Hour Post Anesthesia Eval ---
Post Anesthesia Evaluation Procedure: Bilateral revision and closure of groin wounds Date of Evaluation: Aug 08, 2016 Time of Evaluation: 17:58 Blood Pressure Systolic: 106 0: 74 Pulse Rate: 76 Respiratory Rate: 20 Temperature (Fahrenheit): 97.6 O2 Sat by Pulse Oximetry: 98 Airway: patent Nausea: No Vomiting: No Pain Intensity: 3 Hydration Status: adequate Cardiopulmonary Status: stable Mental Status/LOC: patient returned to baseline Follow-up Care/Observations: n/a Post-Anesthesia Complications: none Follow-up care needed: N/A GERTRUDE JENKINS M.D. Aug 08, 2016 17:59
[2016-08-08 20:03] VITALS: BP 113/69
--- NOTE | 2016-08-08 20:30 | Consultation ---
DATE OF CONSULTATION: 08/08/2016 INFECTIOUS DISEASES CONSULTATION CONSULTING PHYSICIAN: Milena Porter M.D. ATTENDING PHYSICIAN: Ida Pang M.D. REASON FOR CONSULTATION: Bilateral groin infected wounds, E. coli UTI, elevated white count, and also cellulitis is the payne, I believe. CHIEF COMPLAINT: The patient's chief complaint coming in to the hospital is hidradenitis suppurativa with axillary groin pain. The patient has had radical excision of left and right groin tissue and debridement and flaps. On 08/04/2016, the patient had repeat bilateral groin debridement of wounds. On 08/04/2016, the patient had flap closure of the wounds. On 08/07/2016, the patient had surgery for bilateral groin wound infection status post groin reconstruction and the patient had bilateral groin wound exploration and drainage of bilateral groin wounds. Infectious Diseases consultation was requested for antibiotic management in this patient. The patient is also noted to have an E. coli UTI. The patient has leukocytosis and did have fevers of up to 101.7 degrees. The patient had multiple drug allergies including cefdinir, cephalexin, Cipro, doxycycline, erythromycin, Levaquin, morphine, and penicillins. She tolerated vancomycin, gentamicin, and Invanz. She is getting vancomycin and she tolerated gentamicin, however, I am going to give her Invanz and she states she tolerates 50 mg one-half prior or 30 minutes prior to dose. This was discussed with pharmacy also. MAR was noted. Orders were noted. Notes and records were reviewed. PAST MEDICAL HISTORY: The patient has a past medical history of palmoplantar pustulosis. No history of diabetes or hypertension. MEDICATIONS: Upon reviewing the MAR, the patient is on the following medications. She is on gentamicin and vancomycin. I am going to switch her to vancomycin and Invanz. She is on heparin, Benadryl, and Dilaudid. She is on Macrobid, which I will discontinue. She is on Benadryl, Colace, Effexor, Tylenol, Bisacodyl, and MOM. ALLERGIES: Includes cefdinir, cephalexin, penicillin, Cipro, doxycycline, erythromycin, morphine, and mupirocin. She states she is also allergic to Flagyl when I talked to her. She is also allergic to sulfa. She is also allergic to morphine. With regards to antibiotics, she states she gets hives. She states she is able to tolerate vancomycin, gentamicin, and Invanz with Benadryl premedication . SOCIAL HISTORY: Negative for smoking, alcohol, and drug abuse. FAMILY HISTORY: Noncontributory. PHYSICAL EXAMINATION: VITAL SIGNS: Temperature is 98.1 degrees, pulse rate 81, respirations 20, blood pressure 113/65, and saturation 95%. GENERAL: Alert, responsive, and in no acute distress. HEAD AND NECK: Oral exam, no thrush. Eye exam, no icterus. Normocephalic. No facial droop. No neck stiffness. HEART: Regular. No gallop or murmur. LUNGS: Clear bilaterally. No rhonchi or rales. ABDOMEN: Soft. Positive bowel sounds. Nontender. SKIN: No rash or dermatitis. MUSCULOSKELETAL: No effusion or contractures. Legs are without cellulitis. PERIPHERAL VASCULAR: No cyanosis or gangrene. GENITOURINARY: She has a Lay. LINES: Line site is without phlebitis. NEUROLOGIC: Intact and nonfocal. Wounds are covered. LABORATORY AND DIAGNOSTIC DATA: Laboratory data is as follows. White count 14.7 and hemoglobin 11.4. The patient's creatinine is 1.0. Urinalysis had 2+ leukocyte esterase and 10 to 15 white blood cells. Urine culture grew out E. coli. Sensitivities are noted. IMAGING STUDIES: It just shows that a PICC line was placed. ASSESSMENT AND PLAN: 1. The patient has bilateral wound infection status post debridement and drainage. The patient is status post bilateral groin wound and abdominal wound debridement and closure of the groin wounds and I believe flaps for wound closure. At this time, we will continue vancomycin and Invanz for methicillin-resistant Staphylococcus aureus and gram-negative coverage. Antibiotic choice is limited because of multiple drug allergies, which include hives. The patient will be premedicated with Benadryl before the vancomycin and Invanz. I will discontinue the gentamicin and Macrobid. Continue antibiotics. Continue wound care protocol. 2. Escherichia coli urinary tract infection. The patient will be covered with Invanz. 3. Multiple drug allergies outlined. 4. History of palmoplantar pustulosis. 5. Wound care per Dr. Gramajo. 6. Continue treatment per Dr. Pang. 7. Social history is negative. 8. MAR was noted. 9. Notes were reviewed. 10. The patient has anemia. 11. Case was discussed with RN. 12. Notes and records were reviewed. 13. Case was discussed with Dr. Pang. Milena Porter M.D. DR: CECE JOB#: [id number] CC:
[2016-08-09 00:13] VITALS: BP 130/74
[2016-08-09 04:00] VITALS: BP 131/74
[2016-08-09] MEDS: DiphenhydrAMINE 50mg/ml Inj IVP SCH ×3 (04:30→23:13)
[2016-08-09] MEDS: D5NS 1,000 ML IV SCH ×2 (05:44→23:58)
[2016-08-09] MEDS: PCA HYDROmorphone 1mg/ml 30 ML IV PRN (05:49)
[2016-08-09] MEDS: Heparin 5000 units/ml inj SUBQ SCH ×3 (05:51→23:18)
[2016-08-09] MEDS: PCA shift volume MISC SCH ×2 (07:19→19:24)
[2016-08-09 08:00] VITALS: BP 107/45
[2016-08-09] MEDS: Docusate 100mg cap ORAL SCH ×2 (08:53→17:30)
[2016-08-09] MEDS: Dyna-Hex 2% Top Sol 8oz TOPIC SCH (08:53)
[2016-08-09] MEDS: Venlafaxine XR 75mg cap ORAL SCH (08:53)
--- NOTE | 2016-08-09 10:52 | Infectious Diseases Prog Note ---
Assessment/Plan Assessment/Plan A) 1) bilateral groin wound infection - wound culture with e.coli 2) s/p debridement 3) hidradenitis suppurativa 4) e.coli uti 5) leukocytosis and fevers 6) multiple abx allergies - can tolerate vancomycin, gentamicin and invanz with benadryl pre-medication 7) palmoplantar pustulosis 8) mar noted, notes and records reviewed, fh-nc, sh-negative 9) d/w RN P) 1) vancomycin and invanz with benadryl premedication,wound care per surgery 2) watch labs 3) continue treatment per Dr. Pang and Dr. Gramajo 4) orders entered and noted 5) d/w pharmacy Subjective Constitutional: Denies: fever HEENT: Denies: congestion Respiratory: Denies: shortness of breath Breasts: Denies: discharge Cardiovascular: Denies: chest pain, palpitations Gastrointestinal/Abdominal: Denies: diarrhea, nausea, vomiting Genitourinary: Reports: other - + christensen - urine clear Neurologic: Denies: headache Psychiatric: Denies: depression Skin: Denies: rash Hematologic: Denies: bleeding Musculoskeletal: Denies: pain Allergies: Coded Allergies: CEFDINIR (Verified Allergy, Unknown, 07/31/16) CEPHALEXIN (Verified Allergy, Unknown, 07/31/16) CIPROFLOXACIN (Verified Allergy, Unknown, 07/31/16) DOXYCYCLINE (Unverified Allergy, Unknown, 07/31/16) ERYTHROMYCIN BASE (Unverified Allergy, Unknown, 07/31/16) LEVOFLOXACIN (Verified Allergy, Unknown, 07/31/16) MORPHINE (Verified Allergy, Unknown, 07/31/16) MUPIROCIN (Verified Allergy, Unknown, 07/31/16) PENICILLINS (Unverified Allergy, Unknown, 07/31/16) SULFA (SULFONAMIDE ANTIBIOTICS) (Unverified Allergy, Unknown, 07/31/16) Objective Vital Signs Last 24 Hour Vital Signs Date Time Temp Pulse Resp B/P Pulse Ox O2 Delivery O2 Flow Rate FiO2 08/09/16 08:00 19 08/09/16 08:00 97.5 76 19 107/45 94 Room Air 08/09/16 04:00 97.7 73 19 131/74 91 Room Air 08/09/16 04:00 18 08/09/16 00:13 97.2 81 20 130/74 98 Room Air 08/09/16 00:00 18 08/08/16 20:03 97.7 72 20 113/69 94 Room Air 08/08/16 20:00 19 08/08/16 17:59 76 20 98 08/08/16 16:43 97.2 84 20 102/63 100 Room Air 08/08/16 16:00 21 08/08/16 12:00 98.8 88 21 118/76 97 Room Air 08/08/16 12:00 21 Height (Feet): 5 Height (Inches): 7.00 Weight (Pounds): 220 General Appearance: WD/WN HEENT: normocephalic, atraumatic, anicteric, mucous membranes moist, PERRL, EOMI, pharynx normal, supple, no JVD Respiratory/Chest: lungs clear, normal breath sounds, no respiratory distress Cardiovascular: normal rate, regular rhythm, no gallop/murmur, no JVD Abdomen: normal bowel sounds, soft, non tender, no organomegaly, non distended Genitourinary: other - + christensen Extremities: no cyanosis Skin: no rash Neurologic/Psychiatric: senior sas developer II-XII grossly normal, alert, oriented x 3, responsive Lymphatic: no neck adenopathy Musculoskeletal: no effusion Objective Labs Test 08/06/16 20:50 08/07/16 08:50 08/08/16 08:50 08/08/16 10:35 Random Vancomycin Level 5.5 ug/mL White Blood Count 14.2 K/UL (4.8-10.8) 14.7 K/UL (4.8-10.8) Red Blood Count 3.47 M/UL (4.20-5.40) 3.79 M/UL (4.20-5.40) Hemoglobin 10.7 G/DL (12.0-16.0) 11.4 G/DL (12.0-16.0) Hematocrit 31.6 % (37.0-47.0) 34.8 % (37.0-47.0) Mean Corpuscular Volume 91 FL (80-99) 92 FL (80-99) Mean Corpuscular Hemoglobin 30.8 PG (27.0-31.0) 30.1 PG (27.0-31.0) Mean Corpuscular Hemoglobin Concent 33.7 G/DL (32.0-36.0) 32.8 G/DL (32.0-36.0) Red Cell Distribution Width 12.0 % (11.6-14.8) 11.9 % (11.6-14.8) Platelet Count 248 K/UL (150-450) 320 K/UL (150-450) Mean Platelet Volume 6.2 FL (6.5-10.1) 6.3 FL (6.5-10.1) Neutrophils (%) (Auto) 76.4 % (45.0-75.0) 81.4 % (45.0-75.0) Lymphocytes (%) (Auto) 12.0 % (20.0-45.0) 13.5 % (20.0-45.0) Monocytes (%) (Auto) 8.9 % (1.0-10.0) 4.1 % (1.0-10.0) Eosinophils (%) (Auto) 2.3 % (0.0-3.0) 0.3 % (0.0-3.0) Basophils (%) (Auto) 0.5 % (0.0-2.0) 0.7 % (0.0-2.0) Sodium Level 138 mEQ/L (135-145) Potassium Level 4.0 mEQ/L (3.4-4.9) Chloride Level 92 mEQ/L (98-107) Carbon Dioxide Level 31 mEQ/L (20-30) Anion Gap 15 (5-15) Blood Urea Nitrogen 11 mg/dL (7-23) Creatinine 1.0 mg/dL (0.5-0.9) Estimat Glomerular Filtration Rate > 60 mL/min (>60) Glucose Level 141 mg/dL (74-106) Calcium Level 8.7 mg/dL (8.6-10.2) Random Gentamicin Level 1.8 ug/mL Vancomycin Level Trough 10.2 ug/mL (5.0-12.0) Microbiology Date/Time Source Procedure Growth Status 08/07/16 14:08 Groin Gram Stain - Final Resulted 08/07/16 14:08 Aerobic Culture - Final Escherichia Coli Resulted 08/07/16 14:08 Groin Anaerobic Culture - Preliminary Resulted 08/07/16 14:05 Groin Gram Stain - Final Resulted 08/07/16 14:05 Aerobic Culture - Final Escherichia Coli Resulted 08/07/16 14:05 Groin Anaerobic Culture - Preliminary Resulted Labs Test 08/06/16 20:50 08/07/16 08:50 08/08/16 08:50 08/08/16 10:35 Random Vancomycin Level 5.5 ug/mL White Blood Count 14.2 K/UL (4.8-10.8) 14.7 K/UL (4.8-10.8) Red Blood Count 3.47 M/UL (4.20-5.40) 3.79 M/UL (4.20-5.40) Hemoglobin 10.7 G/DL (12.0-16.0) 11.4 G/DL (12.0-16.0) Hematocrit 31.6 % (37.0-47.0) 34.8 % (37.0-47.0) Mean Corpuscular Volume 91 FL (80-99) 92 FL (80-99) Mean Corpuscular Hemoglobin 30.8 PG (27.0-31.0) 30.1 PG (27.0-31.0) Mean Corpuscular Hemoglobin Concent 33.7 G/DL (32.0-36.0) 32.8 G/DL (32.0-36.0) Red Cell Distribution Width 12.0 % (11.6-14.8) 11.9 % (11.6-14.8) Platelet Count 248 K/UL (150-450) 320 K/UL (150-450) Mean Platelet Volume 6.2 FL (6.5-10.1) 6.3 FL (6.5-10.1) Neutrophils (%) (Auto) 76.4 % (45.0-75.0) 81.4 % (45.0-75.0) Lymphocytes (%) (Auto) 12.0 % (20.0-45.0) 13.5 % (20.0-45.0) Monocytes (%) (Auto) 8.9 % (1.0-10.0) 4.1 % (1.0-10.0) Eosinophils (%) (Auto) 2.3 % (0.0-3.0) 0.3 % (0.0-3.0) Basophils (%) (Auto) 0.5 % (0.0-2.0) 0.7 % (0.0-2.0) Sodium Level 138 mEQ/L (135-145) Potassium Level 4.0 mEQ/L (3.4-4.9) Chloride Level 92 mEQ/L (98-107) Carbon Dioxide Level 31 mEQ/L (20-30) Anion Gap 15 (5-15) Blood Urea Nitrogen 11 mg/dL (7-23) Creatinine 1.0 mg/dL (0.5-0.9) Estimat Glomerular Filtration Rate > 60 mL/min (>60) Glucose Level 141 mg/dL (74-106) Calcium Level 8.7 mg/dL (8.6-10.2) Random Gentamicin Level 1.8 ug/mL Vancomycin Level Trough 10.2 ug/mL (5.0-12.0) Current Medications Medications (Trade) Dose Ordered Sig/Cl[place] Route PRN Reason Start Time Stop Time Status Last Admin Dose Admin Acetaminophen (Tylenol) 650 mg Q4H PRN ORAL Mild Pain (Pain Scale 1-3) 07/31/16 18:45 08/30/16 18:44 08/06/16 05:05 Acetaminophen 650 mg 650 mg Q4H PRN ORAL FEVER 08/07/16 14:15 09/06/16 14:14 Al Hydroxide/Mg Hydroxide (Mylanta II) 30 ml Q6H PRN ORAL dyspepsia 07/31/16 18:45 08/30/16 18:44 Bisacodyl (Dulcolax) 10 mg HSPRN PRN RECTAL Constipation 07/31/16 18:45 08/30/16 18:44 Chlorhexidine Gluconate (Bri-Hex 2%) 1 applic DAILY TOPIC 08/06/16 10:00 09/05/16 09:59 08/09/16 08:53 Dextrose (Dextrose 50%) STAT PRN IV Hypoglycemia 07/31/16 18:45 08/30/16 18:44 Dextrose/Sodium Chloride (D5ns) 1,000 ml @ 50 mls/hr Q20H IV 07/31/16 20:00 08/30/16 19:59 08/09/16 05:44 Diphenhydramine HCl (Benadryl) 12.5 mg Q6H PRN IVP Itching/Pruritis 08/01/16 10:45 08/31/16 10:44 08/06/16 23:54 Diphenhydramine HCl (Benadryl) 100 mg Q12HR@0430,1630 IVP 08/09/16 16:30 09/08/16 23:59 UNV Diphenhydramine HCl 50 mg 50 mg Q24H IV 08/08/16 16:30 09/07/16 16:29 08/08/16 16:19 Docusate Sodium (Colace) 100 mg TWICE A DAY ORAL 08/01/16 21:00 08/31/16 20:59 08/09/16 08:53 Ertapenem/Sodium Chloride (INVanz/Sodium Chloride) 50 ml @ 100 mls/hr Q24H IVPB 08/08/16 17:00 08/13/16 16:59 08/08/16 17:05 Heparin Sodium (Porcine) (Heparin 5000 units/ml) 5,000 units EVERY 8 HOURS SUBQ 08/07/16 22:00 09/06/16 21:59 08/09/16 05:51 Hydromorphone HCl (Dilaudid) 2 mg Q4H PRN IVP Moderate Pain (Pain Scale 4-6) 08/07/16 17:00 08/09/16 16:59 08/08/16 09:20 Hydromorphone HCl (BACKSIDE GRINDER Dilaudid) 30 ml @ 0 mls/hr Q24H PRN IV For Pain 08/07/16 15:00 08/09/16 14:59 08/09/16 05:49 Hydromorphone HCl 2 mg 2 mg Q3H PRN SUBQ Severe Pain (Pain Scale 7-10) 08/07/16 17:00 08/09/16 16:59 Magnesium Hydroxide (Mom) 30 ml HSPRN PRN ORAL Constipation 07/31/16 18:45 08/30/16 18:44 08/08/16 16:18 Metoclopramide HCl (Reglan) 10 mg Q6H PRN IVP Nausea & Vomiting 08/07/16 14:15 09/06/16 14:14 Miscellaneous Medication (BACKSIDE GRINDER Rate Change) 1 ea DAILYPRN PRN MISC rate change 08/07/16 15:15 08/09/16 15:14 Miscellaneous Medication (BACKSIDE GRINDER shift volume) 1 ea Q12HR@0700,1900 MISC 08/07/16 19:00 08/09/16 18:59 08/09/16 07:19 Ondansetron HCl (Zofran) 4 mg Q6H PRN IVP Nausea & Vomiting 08/07/16 14:15 09/06/16 14:14 Polyethylene Glycol (Miralax) 17 gm HSPRN PRN ORAL Constipation 07/31/16 18:45 08/30/16 18:44 08/08/16 16:18 Vancomycin HCl (Vanco rx to dose) 1 ea DAILY PRN MISC Per rx protocol 07/31/16 18:45 08/30/16 18:44 Vancomycin HCl/ Dextrose (Vancomycin/D5W) 275 ml @ 68.75 mls/ hr Q12H IVPB 08/09/16 11:00 08/14/16 23:59 UNV Venlafaxine HCl 75 mg 75 mg DAILY ORAL 08/01/16 09:00 08/31/16 08:59 08/09/16 08:53 Zolpidem Tartrate (Ambien) 5 mg DAILYPRN PRN ORAL Insomnia 08/07/16 14:15 09/06/16 14:14 ESTHER SIMPSON Aug 09, 2016 10:52
[2016-08-09 12:00] VITALS: BP 131/77
[2016-08-09] MEDS: Vancomycin 1.25 GM in D5W 275 ML IVPB SCH ×2 (12:00→23:58)
--- NOTE | 2016-08-09 12:21 | General Progress Note ---
Progress Note Progress Note Pt seen and examined. POD# 2 from open drainage of bilateral groin wounds. Doing well and no more fevers. No more cellulitis in either thigh. Awaiting WBC count for today. DC christensen and wet to dry dressings MD JENNY Chin AMIR Aug 09, 2016 12:21
[2016-08-09 13:33] LABS: BASOPHILS % (AUTO) 1.5 % (0.0-2.0); EOSINOPHILS % (AUTO) 3.5 % (0.0-3.0); LYMPHOCYTES % (AUTO) 31.4 % (20.0-45.0); MEAN CORPUSCULAR HEMOGLOBIN 29.1 PG (27.0-31.0); MEAN CORPUSCULAR HGB CONC 31.9 G/DL (32.0-36.0); MEAN CORPUSCULAR VOLUME 91 FL (80-99); MONOCYTES % (AUTO) 8.1 % (1.0-10.0); NEUTROPHILS % (AUTO) 55.5 % (45.0-75.0); PLATELET COUNT 334 K/UL (150-450); RED CELL DISTRIBUTION WIDTH 11.9 % (11.6-14.8); WHITE BLOOD COUNT 12.7 K/UL (4.8-10.8)
--- NOTE | 2016-08-09 13:54 | General Progress Note ---
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 SNOMED: 86495157 Subjective Date patient seen: Aug 09, 2016 Time patient seen: 13:54 ROS Limited/Unobtainable: No Allergies: Coded Allergies: CEFDINIR (Verified Allergy, Unknown, 07/31/16) CEPHALEXIN (Verified Allergy, Unknown, 07/31/16) CIPROFLOXACIN (Verified Allergy, Unknown, 07/31/16) DOXYCYCLINE (Unverified Allergy, Unknown, 07/31/16) ERYTHROMYCIN BASE (Unverified Allergy, Unknown, 07/31/16) LEVOFLOXACIN (Verified Allergy, Unknown, 07/31/16) MORPHINE (Verified Allergy, Unknown, 07/31/16) MUPIROCIN (Verified Allergy, Unknown, 07/31/16) PENICILLINS (Unverified Allergy, Unknown, 07/31/16) SULFA (SULFONAMIDE ANTIBIOTICS) (Unverified Allergy, Unknown, 07/31/16) Subjective s/p debridement surgery POD#8, s/p further I+D POD#2, no periop or postop complications, no chest pain or dyspnea, no n/v. No significant overnight events. Objective Last 24 Hour Vital Signs Date Time Temp Pulse Resp B/P Pulse Ox O2 Delivery O2 Flow Rate FiO2 08/09/16 12:00 98.2 76 20 131/77 95 Room Air 08/09/16 12:00 19 08/09/16 08:00 19 08/09/16 08:00 97.5 76 19 107/45 94 Room Air 08/09/16 04:00 97.7 73 19 131/74 91 Room Air 08/09/16 04:00 18 08/09/16 00:13 97.2 81 20 130/74 98 Room Air 08/09/16 00:00 18 08/08/16 20:03 97.7 72 20 113/69 94 Room Air 08/08/16 20:00 19 08/08/16 17:59 76 20 98 08/08/16 16:43 97.2 84 20 102/63 100 Room Air 08/08/16 16:00 21 Intake and Output 08/08/16 08/09/16 19:00 07:00 Intake Total 1220 ml 1235.00 ml Output Total 1000 ml 752 ml Balance 220 ml 483.00 ml Intake Oral 720 ml 600 ml IV Total 500 ml 635.00 ml Output Urine Total 1000 ml 750 ml Drainage Total 2 ml # Voids 1 Laboratory Tests 08/09/16 13:20: White Blood Count 12.7H, Red Blood Count 3.50L, Hemoglobin 10.2L, Hematocrit 31.9L, Mean Corpuscular Volume 91, Mean Corpuscular Hemoglobin 29.1, Mean Corpuscular Hemoglobin Concent 31.9L, Red Cell Distribution Width 11.9, Platelet Count 334, Mean Platelet Volume 6.0L, Neutrophils (%) (Auto) 55.5, Lymphocytes (%) (Auto) 31.4, Monocytes (%) (Auto) 8.1, Eosinophils (%) (Auto) 3.5H, Basophils (%) (Auto) 1.5 Height (Feet): 5 Height (Inches): 7.00 Weight (Pounds): 220 Objective General: alert, cooperative, no distress, appears stated age Head: normocephalic, without obvious abnormality, atraumatic Eyes: conjunctivae/corneas clear. PERRL, EOM's intact Throat: lips, mucosa, and tongue normal. MMM Neck: supple, symmetrical, trachea midline, and no JVD Lungs: clear to auscultation bilaterally Heart: regular rate and rhythm, S1, S2 normal, no murmur, click, rub or gallop Abdomen: soft, non-tender, non-distended, bowel sounds normal; no masses or organomegaly Extremities: dressings c/d/i Pulses: 2+ and symmetric Skin: skin color, texture, turgor normal; no rashes or lesions Neurologic: grossly normal, no focal deficits ROBSON DAWN Aug 09, 2016 13:54
[2016-08-09 16:00] VITALS: BP 139/84
[2016-08-09] MEDS: DiphenhydrAMINE 50mg/ml Inj IV SCH (16:41)
[2016-08-09] MEDS ORDERED: Tubing IV Secondary IV ONE (18:11)
[2016-08-09] MEDS ORDERED: NS 550ML IV ONE (18:11)
[2016-08-09] MEDS ORDERED: D5NS 1000ml IV ONE (18:11)
[2016-08-09] MEDS ORDERED: Rate Change PCA 1 Each MISC PRN (19:00)
[2016-08-09] MEDS ORDERED: PCA shift volume MISC SCH (19:00)
[2016-08-09 20:09] VITALS: BP 96/64
[2016-08-10 00:05] VITALS: BP 153/80
[2016-08-10 04:00] VITALS: BP 120/63
[2016-08-10] MEDS: Heparin 5000 units/ml inj SUBQ SCH ×3 (05:06→22:02)
[2016-08-10] MEDS: PCA HYDROmorphone 1mg/ml 30 ML IV PRN (05:08)
[2016-08-10] MEDS: PCA shift volume MISC SCH ×2 (07:03→19:41)
[2016-08-10 07:50] LABS: BASOPHILS % (AUTO) 0.9 % (0.0-2.0); EOSINOPHILS % (AUTO) 3.9 % (0.0-3.0); LYMPHOCYTES % (AUTO) 31.6 % (20.0-45.0); MEAN CORPUSCULAR HEMOGLOBIN 29.8 PG (27.0-31.0); MEAN CORPUSCULAR HGB CONC 32.3 G/DL (32.0-36.0); MEAN CORPUSCULAR VOLUME 92 FL (80-99); MEAN PLATELET VOLUME 5.9 FL (6.5-10.1); MONOCYTES % (AUTO) 8.1 % (1.0-10.0); NEUTROPHILS % (AUTO) 55.5 % (45.0-75.0); PLATELET COUNT 325 K/UL (150-450); RED BLOOD COUNT 3.64 M/UL (4.20-5.40); RED CELL DISTRIBUTION WIDTH 12.2 % (11.6-14.8); WHITE BLOOD COUNT 11.3 K/UL (4.8-10.8)
[2016-08-10 08:00] VITALS: BP 101/52
[2016-08-10] MEDS: Docusate 100mg cap ORAL SCH ×2 (08:05→17:14)
[2016-08-10] MEDS: Venlafaxine XR 75mg cap ORAL SCH (08:06)
[2016-08-10] MEDS: Dyna-Hex 2% Top Sol 8oz TOPIC SCH (08:06)
[2016-08-10 08:25] LABS: CALCIUM 8.6 mg/dL (8.6-10.2); CREATININE 1.2 mg/dL (0.5-0.9); GLOMERULAR FILTRATION RATE 50.3 mL/min (>60); POTASSIUM 3.5 mEQ/L (3.4-4.9)
[2016-08-10] MEDS: DiphenhydrAMINE 50mg/ml Inj IVP SCH ×2 (10:58→22:30)
[2016-08-10] MEDS: Vancomycin 1.25 GM in D5W 275 ML IVPB SCH (11:40)
--- NOTE | 2016-08-10 11:55 | General Progress Note ---
Assessment/Plan Problem List: (1) Abscess Assessment & Plan: s/p debridement Cont IV abx, vanco IV to run over 4 hours, magedbarbie pre-treatment has worked for her in the past additional IV abx per ID, gentamicin started, WBC down today f/u Blood cx Pain control Supp care Surgical consult ICD Codes: L02.91 - Cutaneous abscess, unspecified SNOMED: 993270500 (2) Palmoplantar pustulosis Assessment & Plan: Stable Cont otezla, humira dced ICD Codes: L40.3 - Pustulosis palmaris et plantaris SNOMED: 49522984 Subjective Date patient seen: Aug 10, 2016 Time patient seen: 11:54 ROS Limited/Unobtainable: No Allergies: Coded Allergies: CEFDINIR (Verified Allergy, Unknown, 07/31/16) CEPHALEXIN (Verified Allergy, Unknown, 07/31/16) CIPROFLOXACIN (Verified Allergy, Unknown, 07/31/16) DOXYCYCLINE (Unverified Allergy, Unknown, 07/31/16) ERYTHROMYCIN BASE (Unverified Allergy, Unknown, 07/31/16) LEVOFLOXACIN (Verified Allergy, Unknown, 07/31/16) MORPHINE (Verified Allergy, Unknown, 07/31/16) MUPIROCIN (Verified Allergy, Unknown, 07/31/16) PENICILLINS (Unverified Allergy, Unknown, 07/31/16) SULFA (SULFONAMIDE ANTIBIOTICS) (Unverified Allergy, Unknown, 07/31/16) Subjective s/p debridement surgery POD#9, s/p further I+D POD#3, no periop or postop complications, no chest pain or dyspnea, no n/v. No significant overnight events. Objective Last 24 Hour Vital Signs Date Time Temp Pulse Resp B/P Pulse Ox O2 Delivery O2 Flow Rate FiO2 08/10/16 08:00 97.9 79 18 101/52 100 Room Air 08/10/16 08:00 19 08/10/16 05:38 98.1 08/10/16 05:11 20 08/10/16 04:00 98.1 73 19 120/63 100 Room Air 08/10/16 04:00 19 08/10/16 00:05 97.4 85 20 153/80 97 Room Air 08/10/16 00:00 19 08/09/16 20:09 80 20 96/64 96 Room Air 08/09/16 20:00 19 08/09/16 16:00 97.9 77 18 139/84 97 Room Air 08/09/16 16:00 19 08/09/16 12:00 98.2 76 20 131/77 95 Room Air 08/09/16 12:00 19 Intake and Output 08/09/16 08/10/16 19:00 07:00 Intake Total 1000 ml 985.00 ml Output Total 600 ml Balance 400 ml 985.00 ml Intake Oral 500 ml 360 ml IV Total 500 ml 625.00 ml Output Urine Total 600 ml Drainage Total 0 ml # Voids 1 3 Laboratory Tests 08/09/16 13:20: White Blood Count 12.7H, Red Blood Count 3.50L, Hemoglobin 10.2L, Hematocrit 31.9L, Mean Corpuscular Volume 91, Mean Corpuscular Hemoglobin 29.1, Mean Corpuscular Hemoglobin Concent 31.9L, Red Cell Distribution Width 11.9, Platelet Count 334, Mean Platelet Volume 6.0L, Neutrophils (%) (Auto) 55.5, Lymphocytes (%) (Auto) 31.4, Monocytes (%) (Auto) 8.1, Eosinophils (%) (Auto) 3.5H, Basophils (%) (Auto) 1.5 08/10/16 06:35: White Blood Count 11.3H, Red Blood Count 3.64L, Hemoglobin 10.8L, Hematocrit 33.5L, Mean Corpuscular Volume 92, Mean Corpuscular Hemoglobin 29.8, Mean Corpuscular Hemoglobin Concent 32.3, Red Cell Distribution Width 12.2, Platelet Count 325, Mean Platelet Volume 5.9L, Neutrophils (%) (Auto) 55.5, Lymphocytes ( %) (Auto) 31.6, Monocytes (%) (Auto) 8.1, Eosinophils (%) (Auto) 3.9H, Basophils (%) (Auto) 0.9, Sodium Level 140, Potassium Level 3.5, Chloride Level 98, Carbon Dioxide Level 31H, Anion Gap 11, Blood Urea Nitrogen 8, Creatinine 1.2H, Estimat Glomerular Filtration Rate 50.3, Glucose Level 85, Calcium Level 8.6 Height (Feet): 5 Height (Inches): 7.00 Weight (Pounds): 220 Objective General: alert, cooperative, no distress, appears stated age Head: normocephalic, without obvious abnormality, atraumatic Eyes: conjunctivae/corneas clear. PERRL, EOM's intact Throat: lips, mucosa, and tongue normal. MMM Neck: supple, symmetrical, trachea midline, and no JVD Lungs: clear to auscultation bilaterally Heart: regular rate and rhythm, S1, S2 normal, no murmur, click, rub or gallop Abdomen: soft, non-tender, non-distended, bowel sounds normal; no masses or organomegaly Extremities: dressings c/d/i Pulses: 2+ and symmetric Skin: skin color, texture, turgor normal; no rashes or lesions Neurologic: grossly normal, no focal deficits ROBSON DAWN Aug 10, 2016 11:55
[2016-08-10 16:00] VITALS: BP 111/66
[2016-08-10] MEDS: DiphenhydrAMINE 50mg/ml Inj IV SCH (16:27)
[2016-08-10 20:13] VITALS: BP 109/59
[2016-08-10] MEDS: D5NS 1,000 ML IV SCH (21:45)
[2016-08-11 00:32] VITALS: BP 110/60
[2016-08-11 04:14] VITALS: BP 130/70
[2016-08-11] MEDS: PCA HYDROmorphone 1mg/ml 30 ML IV PRN (05:40)
[2016-08-11] MEDS: Heparin 5000 units/ml inj SUBQ SCH ×3 (05:46→21:27)
[2016-08-11] MEDS: PCA shift volume MISC SCH (07:09)
[2016-08-11 08:00] VITALS: BP 125/86
[2016-08-11] MEDS: Venlafaxine XR 75mg cap ORAL SCH (08:02)
[2016-08-11] MEDS: Dyna-Hex 2% Top Sol 8oz TOPIC SCH (08:02)
[2016-08-11] MEDS: Docusate 100mg cap ORAL SCH ×2 (08:03→17:23)
[2016-08-11 12:00] VITALS: BP 128/73
--- NOTE | 2016-08-11 12:05 | Infectious Diseases Prog Note ---
Assessment/Plan Assessment/Plan A) 1) bilateral groin wound infection - wound culture with e.coli 2) s/p debridement 3) hidradenitis suppurativa 4) e.coli uti 5) leukocytosis and fevers - improved 6) multiple abx allergies - can tolerate vancomycin, gentamicin and invanz with benadryl pre-medication 7) palmoplantar pustulosis 8) mar noted, notes and records reviewed, fh-nc, sh-negative 9) d/w RN P) 1) Invanz iv for now, discontinue vancomycin since no mrsa grew out 2) watch labs 3) continue treatment per Dr. Pang and Dr. Gramajo 4) orders entered and noted 5) d/w patient and answered questions Subjective Constitutional: Denies: fever Respiratory: Denies: shortness of breath Cardiovascular: Denies: chest pain Gastrointestinal/Abdominal: Denies: diarrhea, nausea, vomiting Genitourinary: Reports: other Neurologic: Denies: headache Psychiatric: Denies: depression Skin: Denies: rash Hematologic: Denies: bleeding Musculoskeletal: Denies: pain Allergies: Coded Allergies: CEFDINIR (Verified Allergy, Unknown, 07/31/16) CEPHALEXIN (Verified Allergy, Unknown, 07/31/16) CIPROFLOXACIN (Verified Allergy, Unknown, 07/31/16) DOXYCYCLINE (Unverified Allergy, Unknown, 07/31/16) ERYTHROMYCIN BASE (Unverified Allergy, Unknown, 07/31/16) LEVOFLOXACIN (Verified Allergy, Unknown, 07/31/16) MORPHINE (Verified Allergy, Unknown, 07/31/16) MUPIROCIN (Verified Allergy, Unknown, 07/31/16) PENICILLINS (Unverified Allergy, Unknown, 07/31/16) SULFA (SULFONAMIDE ANTIBIOTICS) (Unverified Allergy, Unknown, 07/31/16) Objective Vital Signs Last 24 Hour Vital Signs Date Time Temp Pulse Resp B/P Pulse Ox O2 Delivery O2 Flow Rate FiO2 08/11/16 08:00 19 08/11/16 08:00 98.1 77 18 125/86 94 Room Air 08/11/16 05:40 16 08/11/16 04:14 97.5 72 18 130/70 98 Room Air 08/11/16 04:00 16 08/11/16 00:32 98.1 70 17 110/60 95 Room Air 08/11/16 00:00 16 08/10/16 20:13 98.2 71 19 109/59 96 Room Air 08/10/16 20:00 16 08/10/16 16:00 98.4 78 18 111/66 99 Room Air 08/10/16 16:00 20 08/10/16 12:00 19 Height (Feet): 5 Height (Inches): 7.00 Weight (Pounds): 220 General Appearance: no acute distress HEENT: normocephalic, atraumatic, anicteric, mucous membranes moist, PERRL, EOMI, pharynx normal, supple, no JVD Respiratory/Chest: lungs clear, normal breath sounds, no respiratory distress, no accessory muscle use Cardiovascular: normal rate, regular rhythm, no gallop/murmur, no JVD Abdomen: normal bowel sounds, soft, non tender, no organomegaly, non distended Genitourinary: other - no christensen Extremities: no cyanosis Skin: no rash, other - covered, no drainage per RN Neurologic/Psychiatric: mba intern II-XII grossly normal, alert, oriented x 3, responsive Lymphatic: no neck adenopathy Musculoskeletal: no effusion Objective Labs Test 08/06/16 20:50 08/07/16 08:50 08/08/16 08:50 08/08/16 10:35 Random Vancomycin Level 5.5 ug/mL White Blood Count 14.2 K/UL (4.8-10.8) 14.7 K/UL (4.8-10.8) Red Blood Count 3.47 M/UL (4.20-5.40) 3.79 M/UL (4.20-5.40) Hemoglobin 10.7 G/DL (12.0-16.0) 11.4 G/DL (12.0-16.0) Hematocrit 31.6 % (37.0-47.0) 34.8 % (37.0-47.0) Mean Corpuscular Volume 91 FL (80-99) 92 FL (80-99) Mean Corpuscular Hemoglobin 30.8 PG (27.0-31.0) 30.1 PG (27.0-31.0) Mean Corpuscular Hemoglobin Concent 33.7 G/DL (32.0-36.0) 32.8 G/DL (32.0-36.0) Red Cell Distribution Width 12.0 % (11.6-14.8) 11.9 % (11.6-14.8) Platelet Count 248 K/UL (150-450) 320 K/UL (150-450) Mean Platelet Volume 6.2 FL (6.5-10.1) 6.3 FL (6.5-10.1) Neutrophils (%) (Auto) 76.4 % (45.0-75.0) 81.4 % (45.0-75.0) Lymphocytes (%) (Auto) 12.0 % (20.0-45.0) 13.5 % (20.0-45.0) Monocytes (%) (Auto) 8.9 % (1.0-10.0) 4.1 % (1.0-10.0) Eosinophils (%) (Auto) 2.3 % (0.0-3.0) 0.3 % (0.0-3.0) Basophils (%) (Auto) 0.5 % (0.0-2.0) 0.7 % (0.0-2.0) Sodium Level 138 mEQ/L (135-145) Potassium Level 4.0 mEQ/L (3.4-4.9) Chloride Level 92 mEQ/L (98-107) Carbon Dioxide Level 31 mEQ/L (20-30) Anion Gap 15 (5-15) Blood Urea Nitrogen 11 mg/dL (7-23) Creatinine 1.0 mg/dL (0.5-0.9) Estimat Glomerular Filtration Rate > 60 mL/min (>60) Glucose Level 141 mg/dL (74-106) Calcium Level 8.7 mg/dL (8.6-10.2) Random Gentamicin Level 1.8 ug/mL Vancomycin Level Trough 10.2 ug/mL (5.0-12.0) Microbiology Date/Time Source Procedure Growth Status 07/31/16 13:34 Urine,Clean Catch Urine Culture - Final Escherichia Coli Complete 08/07/16 14:08 Groin Gram Stain - Final Resulted 08/07/16 14:08 Aerobic Culture - Final Escherichia Coli Resulted 08/07/16 14:08 Groin Anaerobic Culture - Preliminary Resulted Labs Test 08/09/16 13:20 08/10/16 06:35 White Blood Count 12.7 K/UL (4.8-10.8) 11.3 K/UL (4.8-10.8) Red Blood Count 3.50 M/UL (4.20-5.40) 3.64 M/UL (4.20-5.40) Hemoglobin 10.2 G/DL (12.0-16.0) 10.8 G/DL (12.0-16.0) Hematocrit 31.9 % (37.0-47.0) 33.5 % (37.0-47.0) Mean Corpuscular Volume 91 FL (80-99) 92 FL (80-99) Mean Corpuscular Hemoglobin 29.1 PG (27.0-31.0) 29.8 PG (27.0-31.0) Mean Corpuscular Hemoglobin Concent 31.9 G/DL (32.0-36.0) 32.3 G/DL (32.0-36.0) Red Cell Distribution Width 11.9 % (11.6-14.8) 12.2 % (11.6-14.8) Platelet Count 334 K/UL (150-450) 325 K/UL (150-450) Mean Platelet Volume 6.0 FL (6.5-10.1) 5.9 FL (6.5-10.1) Neutrophils (%) (Auto) 55.5 % (45.0-75.0) 55.5 % (45.0-75.0) Lymphocytes (%) (Auto) 31.4 % (20.0-45.0) 31.6 % (20.0-45.0) Monocytes (%) (Auto) 8.1 % (1.0-10.0) 8.1 % (1.0-10.0) Eosinophils (%) (Auto) 3.5 % (0.0-3.0) 3.9 % (0.0-3.0) Basophils (%) (Auto) 1.5 % (0.0-2.0) 0.9 % (0.0-2.0) Sodium Level 140 mEQ/L (135-145) Potassium Level 3.5 mEQ/L (3.4-4.9) Chloride Level 98 mEQ/L (98-107) Carbon Dioxide Level 31 mEQ/L (20-30) Anion Gap 11 (5-15) Blood Urea Nitrogen 8 mg/dL (7-23) Creatinine 1.2 mg/dL (0.5-0.9) Estimat Glomerular Filtration Rate 50.3 mL/min (>60) Glucose Level 85 mg/dL (74-106) Calcium Level 8.6 mg/dL (8.6-10.2) Current Medications Medications (Trade) Dose Ordered Sig/Clovis Route PRN Reason Start Time Stop Time Status Last Admin Dose Admin Acetaminophen (Tylenol) 650 mg Q4H PRN ORAL Mild Pain (Pain Scale 1-3) 07/31/16 18:45 08/30/16 18:44 08/06/16 05:05 Acetaminophen 650 mg 650 mg Q4H PRN ORAL FEVER 08/07/16 14:15 09/06/16 14:14 Al Hydroxide/Mg Hydroxide (Mylanta II) 30 ml Q6H PRN ORAL dyspepsia 07/31/16 18:45 08/30/16 18:44 Bisacodyl (Dulcolax) 10 mg HSPRN PRN RECTAL Constipation 07/31/16 18:45 08/30/16 18:44 Chlorhexidine Gluconate (Bri-Hex 2%) 1 applic DAILY TOPIC 08/06/16 10:00 09/05/16 09:59 08/11/16 08:02 Dextrose (Dextrose 50%) STAT PRN IV Hypoglycemia 07/31/16 18:45 08/30/16 18:44 Dextrose/Sodium Chloride (D5ns) 1,000 ml @ 50 mls/hr Q20H IV 07/31/16 20:00 08/30/16 19:59 08/10/16 21:45 Diphenhydramine HCl (Benadryl) 12.5 mg Q6H PRN IVP Itching/Pruritis 08/01/16 10:45 08/31/16 10:44 08/06/16 23:54 Diphenhydramine HCl 50 mg 50 mg Q24H IV 08/08/16 16:30 09/07/16 16:29 08/10/16 16:27 Docusate Sodium (Colace) 100 mg TWICE A DAY ORAL 08/01/16 21:00 08/31/16 20:59 08/11/16 08:03 Ertapenem/Sodium Chloride (INVanz/Sodium Chloride) 50 ml @ 100 mls/hr Q24H IVPB 08/08/16 17:00 08/13/16 16:59 08/10/16 17:14 Heparin Sodium (Porcine) (Heparin 5000 units/ml) 5,000 units EVERY 8 HOURS SUBQ 08/07/16 22:00 09/06/16 21:59 08/11/16 05:46 Hydromorphone HCl (Dilaudid) 2 mg Q3H PRN SUBQ Severe Pain (Pain Scale 7-10) 08/09/16 19:00 08/11/16 18:59 Hydromorphone HCl (Dilaudid) 2 mg Q4H PRN IVP Moderate Pain (Pain Scale 4-6) 08/09/16 19:00 08/11/16 18:59 Hydromorphone HCl (TEA LEAF READER Dilaudid) 30 ml @ 0 mls/hr Q24H PRN IV For Pain 08/09/16 19:00 08/11/16 18:59 08/11/16 05:40 Magnesium Hydroxide (Mom) 30 ml HSPRN PRN ORAL Constipation 07/31/16 18:45 08/30/16 18:44 08/08/16 16:18 Metoclopramide HCl (Reglan) 10 mg Q6H PRN IVP Nausea & Vomiting 08/07/16 14:15 09/06/16 14:14 Miscellaneous Medication (TEA LEAF READER Rate Change) 1 ea DAILY PRN MISC rate change 08/09/16 19:00 08/11/16 18:59 Miscellaneous Medication (TEA LEAF READER shift volume) 1 ea Q12HR@0700,1900 MISC 08/09/16 19:00 08/11/16 18:59 08/11/16 07:09 Ondansetron HCl (Zofran) 4 mg Q6H PRN IVP Nausea & Vomiting 08/07/16 14:15 09/06/16 14:14 Polyethylene Glycol (Miralax) 17 gm HSPRN PRN ORAL Constipation 07/31/16 18:45 08/30/16 18:44 08/08/16 16:18 Venlafaxine HCl 75 mg 75 mg DAILY ORAL 08/01/16 09:00 08/31/16 08:59 08/11/16 08:02 Zolpidem Tartrate (Ambien) 5 mg DAILYPRN PRN ORAL Insomnia 08/07/16 14:15 09/06/16 14:14 ESTHER SIMPSON Aug 11, 2016 12:05
--- NOTE | 2016-08-11 15:27 | General Progress Note ---
Assessment/Plan Problem List: (1) Abscess Assessment & Plan: s/p debridement Cont IV abx, vanco IV to run over 4 hours, magedbarbie pre-treatment has worked for her in the past additional IV abx per ID, gentamicin started, WBC down today f/u Blood cx Pain control Supp care Surgical consult ICD Codes: L02.91 - Cutaneous abscess, unspecified SNOMED: 116090108 (2) Palmoplantar pustulosis Assessment & Plan: Stable Cont otezla, humira dced ICD Codes: L40.3 - Pustulosis palmaris et plantaris SNOMED: 98449216 Subjective Date patient seen: Aug 11, 2016 Time patient seen: 15:27 ROS Limited/Unobtainable: No Allergies: Coded Allergies: CEFDINIR (Verified Allergy, Unknown, 07/31/16) CEPHALEXIN (Verified Allergy, Unknown, 07/31/16) CIPROFLOXACIN (Verified Allergy, Unknown, 07/31/16) DOXYCYCLINE (Unverified Allergy, Unknown, 07/31/16) ERYTHROMYCIN BASE (Unverified Allergy, Unknown, 07/31/16) LEVOFLOXACIN (Verified Allergy, Unknown, 07/31/16) MORPHINE (Verified Allergy, Unknown, 07/31/16) MUPIROCIN (Verified Allergy, Unknown, 07/31/16) PENICILLINS (Unverified Allergy, Unknown, 07/31/16) SULFA (SULFONAMIDE ANTIBIOTICS) (Unverified Allergy, Unknown, 07/31/16) Subjective s/p debridement surgery POD#10, s/p further I+D POD#4, no periop or postop complications, no chest pain or dyspnea, no n/v. No significant overnight events. Objective Last 24 Hour Vital Signs Date Time Temp Pulse Resp B/P Pulse Ox O2 Delivery O2 Flow Rate FiO2 08/11/16 12:00 98.1 78 17 128/73 95 Room Air 08/11/16 12:00 19 08/11/16 08:00 19 08/11/16 08:00 98.1 77 18 125/86 94 Room Air 08/11/16 05:40 16 08/11/16 04:14 97.5 72 18 130/70 98 Room Air 08/11/16 04:00 16 08/11/16 00:32 98.1 70 17 110/60 95 Room Air 08/11/16 00:00 16 08/10/16 20:13 98.2 71 19 109/59 96 Room Air 08/10/16 20:00 16 08/10/16 16:00 98.4 78 18 111/66 99 Room Air 08/10/16 16:00 20 Intake and Output 08/10/16 08/11/16 19:00 07:00 Intake Total 1270 ml 290 ml Balance 1270 ml 290 ml Intake Oral 720 ml 240 ml IV Total 550 ml 50 ml # Voids 2 1 Height (Feet): 5 Height (Inches): 7.00 Weight (Pounds): 220 Objective General: alert, cooperative, no distress, appears stated age Head: normocephalic, without obvious abnormality, atraumatic Eyes: conjunctivae/corneas clear. PERRL, EOM's intact Throat: lips, mucosa, and tongue normal. MMM Neck: supple, symmetrical, trachea midline, and no JVD Lungs: clear to auscultation bilaterally Heart: regular rate and rhythm, S1, S2 normal, no murmur, click, rub or gallop Abdomen: soft, non-tender, non-distended, bowel sounds normal; no masses or organomegaly Extremities: dressings c/d/i Pulses: 2+ and symmetric Skin: skin color, texture, turgor normal; no rashes or lesions Neurologic: grossly normal, no focal deficits ROBSON DAWN Aug 11, 2016 15:27
[2016-08-11 16:00] VITALS: BP 117/72
[2016-08-11] MEDS ORDERED: DiphenhydrAMINE 50mg/ml Inj IV SCH (16:30)
[2016-08-11] MEDS: D5NS 1,000 ML IV SCH (16:39)
[2016-08-11 20:25] VITALS: BP 113/61
[2016-08-12 00:13] VITALS: BP 125/72
[2016-08-12 04:00] VITALS: BP 138/81
[2016-08-12] MEDS: Heparin 5000 units/ml inj SUBQ SCH (06:00)
[2016-08-12] MEDS: Docusate 100mg cap ORAL SCH (08:26)
[2016-08-12] MEDS: Dyna-Hex 2% Top Sol 8oz TOPIC SCH (08:27)
[2016-08-12] MEDS: Venlafaxine XR 75mg cap ORAL SCH (08:27)
[2016-08-12 08:40] VITALS: BP 115/74
[2016-08-12] MEDS ORDERED: NITROFURANTOIN100 M2 ORAL (10:55)
[2016-08-12] MEDS ORDERED: PERCOCET 5-3251 EACH ORAL ×2 (10:57)
[2016-08-12] MEDS ORDERED: D5NS 1000ml IV ONE (12:01)
--- NOTE | 2016-08-12 14:40 | Diagnostic Imaging Report ---
APPROVED REPORT CPT Code: 09995 Present Symptoms Comments: R/O DVT Hx of Hidradenitis Bilateral groin open surgery wounds. BILATERAL: Imaging reveals a patent deep venous system bilaterally. There is no evidence of thrombus within the femoral, popliteal or tibial segments. The greater saphenous veins are also within normal limits. Doppler indicates normal spontaneous flow within these segments.
--- NOTE | 2016-08-12 20:09 | Discharge Summary ---
Discharge Summary Hospital Course Date of Admission Jul 31, 2016 at 14:30 Date of Discharge Aug 12, 2016 at 12:02 Admitting Diagnosis groin abscess Reason for Hospitalization: treatment of groin abscesses JUNIOR Cook is a 36 year old female who was admitted on Jul 31, 2016 at 14 :30 for bilateral groin abscesses Consultations ID Procedures See multiple operative reports Hospital Course 36 y/o female with hx of hidradenitis, presented with uncontrolled pain from bilateral groin abscesses, admitted for IV abx and pain control. Seen by Surgery and was taken to the OR for debridement and flap elevation dring multiple surgeries, without any periop or postop complications. Once wounds were deemed stable, pain controlled on PO pain meds, and abx finalized based on culture sensitivity data, pt was dced home on macrobid per ID recs. Pt will f/u with the surgeon as outpt in 1-2 weeks. Discharge Condition Upon Discharge: stable Discharge Disposition Patient was discharged to Home (01) Discharge Diagnoses: (1) Abscess (2) Palmoplantar pustulosis (3) E. coli UTI ROBSON DAWN Aug 12, 2016 20:09
== END 2016-08-12 12:02 | disposition home or self-care (01) | DRG 574 ==
LOC: EMR 13:44 → 3E 14:30 → EDBEDREQ 14:45
DX: L02.214 Cutaneous abscess of groin (principal); N39.0 Urinary tract infection, site not specified; T81.4XXA Infection following a procedure, initial encounter; L02.211 Cutaneous abscess of abdominal wall; L73.2 Hidradenitis suppurativa; L40.3 Pustulosis palmaris et plantaris; E28.2 Polycystic ovarian syndrome; B96.20 Unspecified Escherichia coli [E. coli] as the cause of diseases classified elsewhere
CPT/HCPCS: 36415; 36569; 76937; 80048; 80053; 80170; 80202; 81003; 81025; 82962; 85025; 85610; 85730; 86850; 86900; 86901; 87070; 87075; 87086; 87181; 87205; 93005; 93970; 94003; 94150; J2180; J2250; J2405; J2710

== ENCOUNTER 2017-02-19 10:48 | Inpatient (IN) | payer OTHER, MEDICARE ==
[~2017-02-19] VITALS: Ht 170.2 cm; Wt 103.4 kg
[~2017-02-19 10:48] MED LIST: HUMIRA40 MG/0.2 SUBQ; NITROFURANTOIN100 M2 ORAL; OTEZLA30 MG PO; PERCOCET 5-3251 EACH ORAL; VENLAFAXINE HCL75 M2 ORAL; [UNRECOGNIZED DRUG - CODE]
[2017-02-19 11:16] VITALS: BP 125/78
[2017-02-19 12:33] VITALS: BP 125/88
--- NOTE | 2017-02-19 13:01 | Emergency Room Report ---
History of Present Illness General Chief Complaint: General Complaint Source: Patient Present Illness HPI 37-year-old female with progressive worsening of bilateral axillary hidradenitis. Denies fever or chills. Not currently on antibiotics. States that she had operation for groin hidradenitis recently. Denies any other medical problems, hypertension or diabetes. Allergies: Coded Allergies: CEFDINIR (Verified Allergy, Unknown, 07/31/16) CEPHALEXIN (Verified Allergy, Unknown, 07/31/16) CIPROFLOXACIN (Verified Allergy, Unknown, 07/31/16) DOXYCYCLINE (Unverified Allergy, Unknown, 07/31/16) ERYTHROMYCIN BASE (Unverified Allergy, Unknown, 07/31/16) LEVOFLOXACIN (Verified Allergy, Unknown, 07/31/16) MORPHINE (Verified Allergy, Unknown, 07/31/16) MUPIROCIN (Verified Allergy, Unknown, 07/31/16) PENICILLINS (Unverified Allergy, Unknown, 07/31/16) SULFA (SULFONAMIDE ANTIBIOTICS) (Unverified Allergy, Unknown, 07/31/16) Patient History Past Medical History: other - see hpi Past Surgical History: none Pertinent Family History: none Social History: Denies: smoking, alcohol use, drug use Last Menstrual Period: n/a Now: No Immunizations: UTD Reviewed Nursing Documentation: PMH: Agreed, PSxH: Agreed Nursing Documentation-PMH Hx Cardiac Problems: No Hx Cancer: No Hx Gastrointestinal Problems: No - hysterectomy Hx Neurological Problems: No Review of Systems All Other Systems: negative except mentioned in HPI Physical Exam Vital Signs Date Time Temp Pulse Resp B/P (MAP) Pulse Ox O2 Delivery O2 Flow Rate FiO2 02/19/17 11:06 98.2 90 18 118/66 97 Room Air Sp02 EP Interpretation: reviewed, normal General Appearance: normal inspection, well appearing, no apparent distress, alert, GCS 15, non-toxic Head: normocephalic, atraumatic Eyes: bilateral eye PERRL, bilateral eye EOMI ENT: normal ENT inspection, hearing grossly normal, normal pharynx, no angioedema, normal voice, TMs + canals normal, uvula midline, moist mucus membranes Neck: normal inspection, full range of motion, supple, thyroid normal, no meningismus, no bony tend Respiratory: normal inspection, lungs clear, normal breath sounds, no rhonchi, no respiratory distress, no retraction, no accessory muscle use, no wheezing, speaking full sentences Cardiovascular #1: regular rate, rhythm, no edema, no JVD, normal capillary refill Gastrointestinal: normal inspection, normal bowel sounds, non tender, soft, no mass, no peritonitis, non-distended, no guarding, no hernia, no pulsatile mass Genitourinary: no CVA tenderness Musculoskeletal: normal inspection, back normal, normal range of motion, no calf tenderness, pelvis stable, Rick's Sign negative Neurologic: normal inspection, alert, oriented x3, responsive, anchor tack puller III-XII nml as tested, motor strength/tone normal, cerebellar normal, normal gait, speech normal Psychiatric: normal inspection, judgement/insight normal, mood/affect normal, no suicidal/homicidal ideation, no delusions Skin: normal inspection, other - bilateral axillary: multiple areas marked with marker. Mild palpable induration bilaterally. No edmund erythema in armpit. Lymphatic: normal inspection, no adenopathy Medical Decision Making Diagnostic Impression: Primary Impression: Hidradenitis axillaris ER Course 37-year-old female with bilateral hidradenitis Vital signs stable, afebrile Nonseptic appearing I spoke with Dr. Alvarado, who is familiar with patient, and will evaluate for surgery for known hidradenitis Endorsed to Dr Pang for med/surg admission as patient's prior admitting hospitalist Labs pending at time of admission Last Vital Signs Date Time Temp Pulse Resp B/P (MAP) Pulse Ox O2 Delivery O2 Flow Rate FiO2 02/19/17 12:33 98.0 81 18 125/88 99 Room Air Status: improved Disposition: ADMITTED INPATIENT Condition: Stable Referrals: FRANCO ALVARADO (PCP) MENDOZA SANTIAGO M.D. Feb 19, 2017 13:01
[2017-02-19 13:17] LABS: BASOPHILS % (AUTO) 0.7 % (0.0-2.0); EOSINOPHILS % (AUTO) 2.5 % (0.0-3.0); HEMATOCRIT 43.2 % (37.0-47.0); HEMOGLOBIN 13.9 G/DL (12.0-16.0); LYMPHOCYTES % (AUTO) 31.9 % (20.0-45.0); MEAN CORPUSCULAR VOLUME 87 FL (80-99); MONOCYTES % (AUTO) 4.2 % (1.0-10.0); NEUTROPHILS % (AUTO) 60.7 % (45.0-75.0); PLATELET COUNT 338 K/UL (150-450); RED BLOOD COUNT 4.97 M/UL (4.20-5.40); RED CELL DISTRIBUTION WIDTH 12.2 % (11.6-14.8); WHITE BLOOD COUNT 10.8 K/UL (4.8-10.8)
[2017-02-19 13:23] LABS: ANION GAP 11 mmol/L (5-15); BLOOD UREA NITROGEN 14 mg/dL (7-18); CALCIUM 8.1 MG/DL (8.5-10.1); CARBON DIOXIDE 26 MMOL/L (21-32); CHLORIDE 102 MMOL/L (98-107); CREATININE 1.1 MG/DL (0.55-1.30); SODIUM 139 MMOL/L (136-145)
[2017-02-19 13:28] LABS: ALANINE AMINOTRANSFERASE 31 U/L (12-78); ALBUMIN 3.4 G/DL (3.4-5.0); ALBUMIN/GLOBULIN RATIO 0.8 (1.0-2.7); ALKALINE PHOSPHATASE 71 U/L (46-116); ASPARTATE AMINO TRANSFERASE 22 U/L (15-37); BILIRUBIN,TOTAL 0.3 MG/DL (0.2-1.0)
--- NOTE | 2017-02-19 13:57 | Diagnostic Imaging Report ---
Indication: Chest pain Technique: One view of the chest Comparison: none Findings: The lungs and pleural spaces are clear. The heart is borderline enlarged. Impression: Borderline cardiomegaly. No acute process
[2017-02-19 14:10] VITALS: BP 127/74
--- NOTE | 2017-02-19 14:24 | History and Physical ---
History of Present Illness General Date patient seen: Feb 19, 2017 Time patient seen: 14:24 Reason for Hospitalization: b/l axillary pain/swellng/redness/drainage Present Illness HPI 37y/o female with pmh of hidradenitis suppurative s/p multiple treatments, including abx and surgeries, most recently b/l groin debridments 07/2016, presents with b/l axillary pain/swellng/redness/drainage. No fevers/chills, pain progressive in her axilla b/l. No previous complications from gen anesthesia or cardio/pulm complications from previous surgeries. Is able to perform 4METS activity without any chest pain or dyspnea, no hx of CAD/CT/pulm disease. Allergies: Coded Allergies: CEFDINIR (Verified Allergy, Unknown, 07/31/16) CEPHALEXIN (Verified Allergy, Unknown, 07/31/16) CIPROFLOXACIN (Verified Allergy, Unknown, 07/31/16) DOXYCYCLINE (Unverified Allergy, Unknown, 07/31/16) ERYTHROMYCIN BASE (Unverified Allergy, Unknown, 07/31/16) LEVOFLOXACIN (Verified Allergy, Unknown, 07/31/16) MORPHINE (Verified Allergy, Unknown, 07/31/16) MUPIROCIN (Verified Allergy, Unknown, 07/31/16) PENICILLINS (Unverified Allergy, Unknown, 07/31/16) SULFA (SULFONAMIDE ANTIBIOTICS) (Unverified Allergy, Unknown, 07/31/16) Medication History Discontinued Medications Adalimumab (Humira), 40 MG SUBQ ONCE A WEEK, (Reported) Discontinued Reason: Pt stopped taking med Apremilast (Otezla), 30 MG PO BID, (Reported) Discontinued Reason: Pt stopped taking med Nitrofurantoin Monohyd/M-Cryst* (Macrobid 100 Mg*), 100 MG ORAL EVERY 12 HOURS, (Reported) Discontinued Reason: Pt stopped taking med Oxycodone/Acetaminophen 5-325* (Percocet 5-325 Mg Tablet*), 1 TAB ORAL Q4H PRN for For Pain, (Reported) Discontinued Reason: Pt stopped taking med Oxycodone/Acetaminophen 5-325* (Percocet 5-325 Mg Tablet*), 1 TAB ORAL Q6H PRN for For Pain, (Reported) Discontinued Reason: Pt stopped taking med Venlafaxine Hcl* (Venlafaxine Hcl Er*), 75 MG ORAL DAILY, (Reported) Discontinued Reason: Pt stopped taking med [Clobestasol], BID, (Reported) Discontinued Reason: Pt stopped taking med Patient History History Provided By: Patient, Family Member, Medical Record, PMD Healthcare decision maker Resuscitation status Advanced Directive on File Past Medical/Surgical History Past Medical/Surgical History: (1) Hidradenitis suppurativa (2) depression/anxiety Family History Family History: Patient reports no known family medical history. Social History Social History: (1) No significant social history Review of Systems Constitutional: Reports: weakness Eye: Reports: no symptoms ENT: Reports: no symptoms Respiratory: Reports: no symptoms Cardiovascular: Reports: no symptoms Gastrointestinal: Reports: no symptoms Genitourinary: Reports: no symptoms Musculoskeletal: Reports: no symptoms Skin: Reports: lesions Psychiatric: Reports: no symptoms Neurological: Reports: no symptoms Endocrine: Reports: no symptoms Hematologic/Lymphatic: Reports: no symptoms Physical Exam Physical Exam Narrative General: alert, cooperative, no distress, appears stated age Head: normocephalic, without obvious abnormality, atraumatic Eyes: conjunctivae/corneas clear. PERRL, EOM's intact Throat: lips, mucosa, and tongue normal. MMM Neck: supple, symmetrical, trachea midline, and no JVD Lungs: clear to auscultation bilaterally Heart: regular rate and rhythm, S1, S2 normal, no murmur, click, rub or gallop Abdomen: soft, non-tender, non-distended, bowel sounds normal; no masses or organomegaly Extremities: extremities normal, atraumatic, no cyanosis or edema Pulses: 2+ and symmetric Skin: skin color, texture, turgor normal; +b/l axillary HS lesions Neurologic: grossly normal, no focal deficits Last 24 Hour Vital Signs Date Time Temp Pulse Resp B/P (MAP) Pulse Ox O2 Delivery O2 Flow Rate FiO2 02/19/17 12:33 98.0 81 18 125/88 99 Room Air 02/19/17 11:16 97.7 78 16 125/78 100 Room Air 02/19/17 11:06 98.2 90 18 118/66 97 Room Air Laboratory Tests Test 02/19/17 12:25 02/19/17 12:50 White Blood Count 10.8 K/UL (4.8-10.8) Red Blood Count 4.97 M/UL (4.20-5.40) Hemoglobin 13.9 G/DL (12.0-16.0) Hematocrit 43.2 % (37.0-47.0) Mean Corpuscular Volume 87 FL (80-99) Mean Corpuscular Hemoglobin 28.0 PG (27.0-31.0) Mean Corpuscular Hemoglobin Concent 32.3 G/DL (32.0-36.0) Red Cell Distribution Width 12.2 % (11.6-14.8) Platelet Count 338 K/UL (150-450) Mean Platelet Volume 6.5 FL (6.5-10.1) Neutrophils (%) (Auto) 60.7 % (45.0-75.0) Lymphocytes (%) (Auto) 31.9 % (20.0-45.0) Monocytes (%) (Auto) 4.2 % (1.0-10.0) Eosinophils (%) (Auto) 2.5 % (0.0-3.0) Basophils (%) (Auto) 0.7 % (0.0-2.0) Prothrombin Time 10.5 SEC (9.30-11.50) Prothromb Time International Ratio 1.0 (0.9-1.1) Activated Partial Thromboplast Time 26 SEC (23-33) Sodium Level 139 MMOL/L (136-145) Potassium Level 4.0 MMOL/L (3.5-5.1) Chloride Level 102 MMOL/L (98-107) Carbon Dioxide Level 26 MMOL/L (21-32) Anion Gap 11 mmol/L (5-15) Blood Urea Nitrogen 14 mg/dL (7-18) Creatinine 1.1 MG/DL (0.55-1.30) Estimat Glomerular Filtration Rate 55.3 mL/min (>60) Glucose Level 98 MG/DL (74-106) Calcium Level 8.1 MG/DL (8.5-10.1) L Total Bilirubin 0.3 MG/DL (0.2-1.0) Aspartate Amino Transf (AST/SGOT) 22 U/L (15-37) Alanine Aminotransferase (ALT/SGPT) 31 U/L (12-78) Alkaline Phosphatase 71 U/L (46-116) Total Protein 7.7 G/DL (6.4-8.2) Albumin 3.4 G/DL (3.4-5.0) Globulin 4.3 g/dL Albumin/Globulin Ratio 0.8 (1.0-2.7) L Urine HCG, Qualitative Negative Height (Feet): 5 Height (Inches): 7.00 Weight (Pounds): 228 Assessment/Plan Problem List: (1) Abscess ICD Codes: L02.91 - Cutaneous abscess, unspecified SNOMED: 700552537 (2) Hidradenitis suppurativa ICD Codes: L73.2 - Hidradenitis suppurativa SNOMED: 76585975 (3) depression/anxiety Status: stable Assessment/Plan Admit inpt Plastic surgery consulted Start IV vanco + benadryl pre-med given allergic rxn F/u cultures PICC ordered given poor access Pain control, supportive care, bowel regimen Cont home med Pristiq If patient is required to have surgery, based on the patient's medical history, and other available ancillary data, the patient is a LOW risk for an INTERMEDIATE risk procedure. Per the most recent ACC/AHA guidelines, the patient does not need any further cardiopulmonary testing prior to the procedure and there do not appear to be any clear medical contraindications to proceeding with the proposed procedure. METs>4 D/w pt/family, RN, SW/CM, surgery regarding mgmt and dispo Shorty Lemon M.D. Feb 19, 2017 14:24
[2017-02-19] MEDS ORDERED: Zolpidem 5mg tab ORAL PRN (14:30)
[2017-02-19] MEDS ORDERED: Milk of Magnesia 30ml Ud ORAL PRN (14:30)
[2017-02-19] MEDS ORDERED: Mylanta II UD 30ml ORAL PRN (14:30)
[2017-02-19 16:00] VITALS: BP 149/92
--- NOTE | 2017-02-19 16:25 | Diagnostic Imaging Report ---
Indications: Needs long-term IV access Technique: Informed consent obtained prior to commencement of the procedure. Procedural timeout performed. Ultrasound confirms patent compressible right cephalic vein. Total sterile technique, including sterile probe cover and sterile gel, hat, mask,, sterile gown, large sterile drape, and preparation with 2% chlorhexidine utilized. Local anesthesia with 1% lidocaine. Under real-time ultrasound guidance, puncture cephalic vein using 21-gauge needle, documented and archived, passage 0.018 guidewire under direct fluoroscopy, which was used to determine appropriate catheter length, exchange for 5 Luxembourger peel-away sheath. 5 [place] Bard dual-lumen power PICC cut to 37 cm. It was inserted through the peel-away sheath. Peel-away sheath and guidewire removed. Catheter fixed to the skin. Both catheter ports aspirated and flushed. Patient tolerated procedure well, without immediate complication. Digital radiograph documents satisfactory catheter tip position, at the cavoatrial junction. Total fluoroscopy time 0.2 minutes. Total dose area product 3.2 dGycm2 Impression: Successful placement of right arm PICC under sonographic and fluoroscopic guidance, as described above.
[2017-02-19] MEDS ORDERED: Vancomycin 1.5 GM/D5W 250ML IVPB ONE (17:00)
[2017-02-19] MEDS: DiphenhydrAMINE 50mg/ml Inj IVP PRN (18:04)
[2017-02-19] MEDS: PRISTIQ 50 MG ORAL SCH (18:04)
[2017-02-19 20:00] VITALS: BP_SYST 112; BP_DIAS 7; BP_DIAS 70
[2017-02-19] MEDS: Dyna-Hex 2% Top Sol 2oz TOPIC SCH (20:00)
[2017-02-19] MEDS: Docusate 100mg cap ORAL SCH (21:39)
[2017-02-20] VITALS (13 sets, daily range): BP systolic 121–182; BP diastolic 70–97
[2017-02-20] MEDS ORDERED: Vancomycin 1gm/D5W 275ml IVPB SCH ×4 (05:00→17:30)
[2017-02-20] MEDS: D5 1/2NS 1,000 ML IV SCH ×2 (05:15→19:20)
[2017-02-20] MEDS: DiphenhydrAMINE 50mg/ml Inj IVP PRN ×2 (05:22→17:19)
[2017-02-20] MEDS ORDERED: NS Irrig 1000ml ONE (08:00)
[2017-02-20] MEDS ORDERED: Ketorolac 30mg Inj ONE (08:00)
[2017-02-20] MEDS ORDERED: Propofol 200mg/20ml IV ONE ×2 (08:00→09:16)
[2017-02-20] MEDS ORDERED: Zemuron 50mg/5ml Inj IV ONE (08:00)
[2017-02-20] MEDS ORDERED: Midazolam 2mg/2ml Inj ONE (08:00)
[2017-02-20] MEDS ORDERED: Succinylcholine 20mg/ml 10ml vial ONE (08:00)
[2017-02-20] MEDS ORDERED: fentaNYL 100 mcg/2 mL IV ONE (08:00)
[2017-02-20] MEDS ORDERED: LR 1000ml ONE (08:00)
[2017-02-20] MEDS ORDERED: Sterile Water Irrig 1000ml IRRIG ONE (08:00)
[2017-02-20] MEDS ORDERED: Morphine Sulfate 10mg/ml Inj ONE (08:00)
[2017-02-20] MEDS ORDERED: EPINEPHrine 1mg/1ml Amp ONE (08:50)
[2017-02-20] MEDS ORDERED: Lidocaine 1% 10mg/ml/EPI 0.01mg/ml 50ml INJ ONE (08:51)
[2017-02-20] MEDS ORDERED: NeoSporin Gu Irrig 1ml Amp IRRIG ONE (08:51)
[2017-02-20] MEDS ORDERED: Bacitracin 50000 Units Vial ONE (08:51)
[2017-02-20] MEDS: Docusate 100mg cap ORAL SCH ×2 (09:00→17:19)
[2017-02-20] MEDS: PRISTIQ 50 MG ORAL SCH (09:00)
--- NOTE | 2017-02-20 09:09 | Pre-Procedure Note/Attestation ---
Pre-Procedure Note/Attestation Complete Prior to Procedure Planned Procedure: bilateral Procedure Narrative: Bilateral axillary debridement and flap elevation/closure Attestation I attest that I discussed the nature of the procedure; its benefits; risks and complications; and alternatives (and the risks and benefits of such alternatives ), prior to the procedure, with the patient (or the patient's legal medical customer service representative). I attest that, if there was a reasonable possibility of needing a blood transfusion, the patient (or the patient's legal medical customer service representative) was given the [facility] standardized written summary, pursuant to the [place] Blood Safety Act ([place] Health and Safety Code # 1645, as amended). I attest that I re-evaluated the patient just prior to the surgery and that there has been no change in the patient's H&P, except as documented below: FRANCO ALVARADO Feb 20, 2017 09:09
[2017-02-20] MEDS ORDERED: PCA Education Pamphlet MISC ONE (09:15)
[2017-02-20] MEDS ORDERED: Rate Change PCA 1 Each MISC PRN (09:15)
[2017-02-20] MEDS ORDERED: LR 1000ml 1,000 ML IVLG SCH (10:29)
--- NOTE | 2017-02-20 10:29 | Anethesia Preoperative Eval ---
Anesthesia Pre-op PMH/ROS General Date of Evaluation: Feb 20, 2017 Time of Evaluation: 09:20 Anesthesiologist: Demar ASA Score: ASA 3 Mallampati Score Class I : Soft palate, uvula, fauces, pillars visible Class II: Soft palate, uvula, fauces visible Class III: Soft palate, base of uvula visible Class IV: Only hard plate visible Mallampati Classification: Class III Surgeon: Avila Diagnosis: Recurrent HS Surgical Procedure: Bilateral axillary debridement Anesthesia History: none Family History: no anesthesia problems Allergies: Coded Allergies: CEFDINIR (Verified Allergy, Unknown, 07/31/16) CEPHALEXIN (Verified Allergy, Unknown, 07/31/16) CIPROFLOXACIN (Verified Allergy, Unknown, 07/31/16) DOXYCYCLINE (Unverified Allergy, Unknown, 07/31/16) ERYTHROMYCIN BASE (Unverified Allergy, Unknown, 07/31/16) LEVOFLOXACIN (Verified Allergy, Unknown, 07/31/16) MORPHINE (Verified Allergy, Unknown, 07/31/16) MUPIROCIN (Verified Allergy, Unknown, 07/31/16) PENICILLINS (Unverified Allergy, Unknown, 07/31/16) SULFA (SULFONAMIDE ANTIBIOTICS) (Unverified Allergy, Unknown, 07/31/16) Past Medical History Cardiovascular: Reports: HTN - mild, Denies: CAD, [place], valve dz, arrhythmia, other Pulmonary: Reports: ANAMIKA, Denies: asthma, COPD, other Gastrointestinal/Genitourinary: Reports: GERD, Denies: CRI, ESRD, other Neurologic/Psychiatric: Reports: depression/anxiety, Denies: dementia, CVA, TIA, other Endocrine: Denies: DM, hypothyroidism, steroids, other HEENT: Denies: cataract (L), cataract (R), glaucoma, [place] (L), [place] (R), other Hematology/Immune: Denies: anemia, DVT, bleeding disorder, other Musculoskeletal/Integumentary: Denies: OA, RA, DJD, DDD, edema, other Other: obesity PMH Narrative: as above PSxH Narrative: Groin HS, Hysterectomy, Bilateral knees scopes Anesthesia Pre-op Phys. Exam Physician Exam Last Vital Signs Date Time Temp Pulse Resp B/P (MAP) Pulse Ox O2 Delivery O2 Flow Rate FiO2 02/20/17 04:00 98.5 20 121/84 98 1/4/18 20:00 78 Room Air Constitutional: NAD Neurologic: CN 2-12 intact Cardiovascular: RRR, no M/R/G Respiratory: CTA Gastrointestinal: other - obesity Airway Exam Mallampati Score: Class III MO: full Neck: short ROM: full Teeth: missing Dentures: no upper, no lower Anesthesia Pre-op A/P Labs Hematology Test 02/19/17 12:25 White Blood Count 10.8 K/UL (4.8-10.8) Red Blood Count 4.97 M/UL (4.20-5.40) Hemoglobin 13.9 G/DL (12.0-16.0) Hematocrit 43.2 % (37.0-47.0) Mean Corpuscular Volume 87 FL (80-99) Mean Corpuscular Hemoglobin 28.0 PG (27.0-31.0) Mean Corpuscular Hemoglobin Concent 32.3 G/DL (32.0-36.0) Red Cell Distribution Width 12.2 % (11.6-14.8) Platelet Count 338 K/UL (150-450) Mean Platelet Volume 6.5 FL (6.5-10.1) Neutrophils (%) (Auto) 60.7 % (45.0-75.0) Lymphocytes (%) (Auto) 31.9 % (20.0-45.0) Monocytes (%) (Auto) 4.2 % (1.0-10.0) Eosinophils (%) (Auto) 2.5 % (0.0-3.0) Basophils (%) (Auto) 0.7 % (0.0-2.0) Coagulation Test 02/19/17 12:25 Prothrombin Time 10.5 SEC (9.30-11.50) Prothromb Time International Ratio 1.0 (0.9-1.1) Activated Partial Thromboplast Time 26 SEC (23-33) Chemistry Test 02/19/17 12:25 Sodium Level 139 MMOL/L (136-145) Potassium Level 4.0 MMOL/L (3.5-5.1) Chloride Level 102 MMOL/L (98-107) Carbon Dioxide Level 26 MMOL/L (21-32) Anion Gap 11 mmol/L (5-15) Blood Urea Nitrogen 14 mg/dL (7-18) Creatinine 1.1 MG/DL (0.55-1.30) Estimat Glomerular Filtration Rate 55.3 mL/min (>60) Glucose Level 98 MG/DL (74-106) Calcium Level 8.1 MG/DL (8.5-10.1) L Total Bilirubin 0.3 MG/DL (0.2-1.0) Aspartate Amino Transf (AST/SGOT) 22 U/L (15-37) Alanine Aminotransferase (ALT/SGPT) 31 U/L (12-78) Alkaline Phosphatase 71 U/L (46-116) Total Protein 7.7 G/DL (6.4-8.2) Albumin 3.4 G/DL (3.4-5.0) Globulin 4.3 g/dL Albumin/Globulin Ratio 0.8 (1.0-2.7) L Urine Test Test 02/19/17 12:50 Urine HCG, Qualitative Negative Risk Assessment & Plan Assessment: ASA 3 Plan: GA with ETT Status Change Before Surgery: No Pre-Antibiotics Drug: as scheduled GERTRUDE JENKINS M.D. Feb 20, 2017 10:29
[2017-02-20] MEDS ORDERED: Meperidine 50mg/ml Inj(FOR RIGORS ONLY) IV PRN (10:30)
[2017-02-20] MEDS ORDERED: Midazolam 2mg/2ml Inj IVP PRN (10:30)
[2017-02-20] MEDS ORDERED: DiphenhydrAMINE 50mg/ml Inj IVP PRN ×2 (10:30→16:00)
[2017-02-20] MEDS ORDERED: Ketorolac 30mg Inj IV PRN (10:30)
[2017-02-20] MEDS ORDERED: Metoclopramide 10mg/2ml Inj IVP PRN (10:30)
--- NOTE | 2017-02-20 11:33 | Operative Note - PDOC ---
Operative Note Operative Note Pre-op Diagnosis: Bilateral axillary infection Procedure: Excision of infected tissue and reconstruction Post-op Diagnosis: same as pre-op Surgeon: Avila Wind Development Director: Ayla Anesthesia: general Specimen: yes Condition: stable Estimated Blood Loss: minimal Drains: TRANG Implant(s) used?: No FRANCO ALVARADO Feb 20, 2017 11:33
--- NOTE | 2017-02-20 11:49 | Immediate Post-Op Evaluation ---
Immediate Post-Op Evalulation Immediate Post-Op Evalulation Procedure: Bilateral Excision of axillary HS with partial wounds closure Date of Evaluation: Feb 20, 2017 Time of Evaluation: 11:48 IV Fluids: 500 Blood Products: none Estimated Blood Loss: 50 Urinary Output: none Blood Pressure Systolic: 157 Blood Pressure Diastolic: 75 Pulse Rate: 86 Respiratory Rate: 20 O2 Sat by Pulse Oximetry: 99 Temperature (Fahrenheit): 98.3 Pain Score (1-10): 2 Nausea: No Vomiting: No Complications none Patient Status: reacts, patent, extubated, none Hydration Status: adequate EGRTRUDE JENKINS M.D. Feb 20, 2017 11:49
[2017-02-20] MEDS: Hydromorphone 0.5mg/0.5ml inj IVP PRN ×2 (12:03→12:37)
[2017-02-20] MEDS: PCA HYDROmorphone 1mg/ml 30 ML IV PRN (12:32)
--- NOTE | 2017-02-20 13:07 | General Progress Note ---
Assessment/Plan Problem List: (1) Abscess ICD Codes: L02.91 - Cutaneous abscess, unspecified SNOMED: 846203551 (2) Hidradenitis suppurativa ICD Codes: L73.2 - Hidradenitis suppurativa SNOMED: 29476797 (3) depression/anxiety Status: stable Assessment/Plan Appreciate surgery rec's Cont IV vanco + pre-med w/ benadryl F/u cultures s/p Excision of infected tissue and reconstruction on 02/20/17 Post operative recommendations include: - encourage mobilization/ambulation - encourage incentive spirometry to optimize pulmonary hygiene - DVT/GI prophylaxis as appropriate - ctm CBC and hemodynamics - ctm electrolytes, adjust/replete prn - pain control, supportive care, bowel regimen - itching control w/ benadryl PRN FULL CODE 32min of extra time was spent on this case in addition to normal encounter time for care/coordination and counseling. D/w pt/family, RN, SW/CM, surgery regarding mgmt and dispo. D/w surgery re postop mgmt Subjective Date patient seen: Feb 20, 2017 Time patient seen: 13:02 ROS Limited/Unobtainable: No Constitutional: Reports: no symptoms HEENT: Reports: no symptoms Cardiovascular: Reports: no symptoms Respiratory: Reports: no symptoms Gastrointestinal/Abdominal: Reports: no symptoms Genitourinary: Reports: no symptoms Neurologic/Psychiatric: Reports: no symptoms Endocrine: Reports: no symptoms Hematologic/Lymphatic: Reports: no symptoms Allergies: Coded Allergies: CEFDINIR (Verified Allergy, Unknown, 07/31/16) CEPHALEXIN (Verified Allergy, Unknown, 07/31/16) CIPROFLOXACIN (Verified Allergy, Unknown, 07/31/16) DOXYCYCLINE (Unverified Allergy, Unknown, 07/31/16) ERYTHROMYCIN BASE (Unverified Allergy, Unknown, 07/31/16) LEVOFLOXACIN (Verified Allergy, Unknown, 07/31/16) MORPHINE (Verified Allergy, Unknown, 07/31/16) MUPIROCIN (Verified Allergy, Unknown, 07/31/16) PENICILLINS (Unverified Allergy, Unknown, 07/31/16) SULFA (SULFONAMIDE ANTIBIOTICS) (Unverified Allergy, Unknown, 07/31/16) All Systems: reviewed and negative except above Subjective No acute o/n events s/p Excision of infected tissue and reconstruction today Pt doing well. Pain controlled. Denies f/c, n/v, d/c, chest pain, SOB C/o itching Objective Last 24 Hour Vital Signs Date Time Temp Pulse Resp B/P (MAP) Pulse Ox O2 Delivery O2 Flow Rate FiO2 02/20/17 12:59 15 02/20/17 12:55 87 15 156/77 97 Nasal Cannula 3.0 02/20/17 12:50 97.6 89 16 153/70 97 Nasal Cannula 3.0 02/20/17 12:45 16 02/20/17 12:45 77 15 148/78 97 Nasal Cannula 3.0 02/20/17 12:37 97.8 02/20/17 12:37 97.8 02/20/17 12:32 16 02/20/17 12:30 88 16 167/78 97 Nasal Cannula 3.0 02/20/17 12:20 91 14 157/84 96 Nasal Cannula 3.0 02/20/17 12:10 92 15 155/84 99 Nasal Cannula 3.0 02/20/17 12:00 98 18 160/89 97 Nasal Cannula 3.0 02/20/17 11:55 89 15 182/85 95 Nasal Cannula 3.0 02/20/17 11:50 87 16 153/84 97 Simple Mask 6.0 02/20/17 11:49 86 20 99 02/20/17 11:42 98.4 90 20 154/97 98 Simple Mask 8.0 02/20/17 04:00 98.5 20 121/84 98 02/19/17 20:00 98.3 18 112/7 97 02/19/17 20:00 98.3 78 18 112/70 97 Room Air 02/19/17 16:00 97.7 111 20 149/92 98 02/19/17 14:10 97.2 80 17 127/74 97 Intake and Output 02/19/17 02/20/17 19:00 07:00 Intake Total 485 ml 480 ml Balance 485 ml 480 ml Intake Oral 360 ml 480 ml IV Total 125 ml # Voids 1 6 Height (Feet): 5 Height (Inches): 7.00 Weight (Pounds): 228 Objective General: alert, cooperative, no distress, appears stated age Head: normocephalic, without obvious abnormality, atraumatic Eyes: conjunctivae/corneas clear. PERRL, EOM's intact Throat: lips, mucosa, and tongue normal. MMM Neck: supple, symmetrical, trachea midline, and no JVD Lungs: clear to auscultation bilaterally Heart: regular rate and rhythm, S1, S2 normal, no murmur, click, rub or gallop Abdomen: soft, non-tender, non-distended, bowel sounds normal; no masses or organomegaly Extremities: extremities normal, atraumatic, no cyanosis or edema Pulses: 2+ and symmetric Skin: skin color, texture, turgor normal; dressing c/d/i Neurologic: grossly normal, no focal deficits Shorty Lemon M.D. Feb 20, 2017 13:07
--- NOTE | 2017-02-20 15:14 | Consultation ---
DATE OF CONSULTATION: 02/20/2017 REASON FOR CONSULTATION: Bilateral axillary infection. HISTORY OF PRESENT ILLNESS: This is a 37-year-old female who I have previously operated on her groin hidradenitis, who presented to the emergency room with bilateral axillary pain and areas of drainage, particularly on the left axilla. She was admitted by the medical team and I am seeing in for evaluation for surgical treatment. PAST MEDICAL HISTORY: Significant for hidradenitis and morbid obesity. PAST SURGICAL HISTORY: Previous incision and drainage for hidradenitis as well as bilateral groin reconstruction for hidradenitis. PHYSICAL EXAMINATION: GENERAL: The patient is alert and oriented. HEART: Regular rate and rhythm. ABDOMEN: Soft, nontender, and nondistended. EXTREMITIES: Examination of the axilla reveals multiple areas of hidradenitis with a large abscess in the left axilla. ASSESSMENT AND PLAN: This is a 37-year-old female, presented to the emergency room with bilateral axillary hidradenitis. She will be taken to the operating room for radical excision of the diseased tissue with reconstruction. Given the fact that there is an active abscess in the left axilla, we are going to perform a staged reconstruction on this side given the fact of the high risk of wound infection following flap transfer. The patient understands our plan and has been admitted by the medical team. Aydee Gramajo M.D. DR: ASIA JOB#: [id number] CC:
--- NOTE | 2017-02-20 15:59 | Operative Note - Dictated ---
DATE OF OPERATION: 02/20/2017 PREOPERATIVE DIAGNOSIS: Bilateral axillary infection/hydradenitis. POSTOPERATIVE DIAGNOSIS: Bilateral axillary infection/hydradenitis. PROCEDURES: 1. Excision of left axillary hidradenitis. 2. Thoracodorsal artery chest wall flap elevation for closure of left axillary wound. 3. Complex closure of the remaining left axillary wound. 4. Excision of right axillary hidradenitis. 5. Adjacent tissue transfer and closure of right axillary wounds measuring 60 cm2. SURGEON: Aydee Gramajo M.D. REQUIREMENTS ENGINEER: Susy Aguila M.D. ANESTHESIA: General. COMPLICATIONS: None. DRAINS: Included a right axillary TRANG. SPECIMEN: Included multiple bilateral axillary specimen. DISPOSITION: Stable to the recovery room. INDICATIONS FOR SURGERY: This is a 37-year-old female, who has been hospitalized for bilateral axillary wound infections. She was examined by me and I felt that she was an appropriate candidate for excision of the hidradenitis with reconstruction. She understood the risks and benefits of surgery and agreed to proceed. DETAILS OF THE OPERATION: The patient was brought to the operating room and laid in the supine position on the operating table. Her bilateral axilla was prepped and draped in sterile and usual fashion. We first began by delineating a total of 4 separate areas in the left axilla, three anteriorly and one posteriorly, which required excision. The wound in the posterior region was quite large and measured 6 x 7 cm. A corresponding thoracodorsal artery flap was also designed on the lateral chest wall to allow for definitive closure of this large axillary lesion on the posterior side. With markings made, we first began by using a #15 blade to excise the anterior axillary areas of hidradenitis. Electrocautery was used to completely remove the specimens and then these wounds were copiously irrigated with pulse lavage and after hemostasis was achieved, a complex closure was pursued using 2-0 Vicryl sutures and a 3-0 Prolene to close the skin. For the posterior axillary wound, this defect that measured after the excision was 8 x 9 cm that was clearly not amenable to complex closure. As such, the corresponding thoracodorsal artery flap that was defined was immobilized by making a skin incision in U shape manner and the electrocautery was then used to completely elevate and mobilize the flap at the level of the latissimus dorsi muscle fascia and once the flap was fully mobilized, it was noted that it could be easily inset into the defect, however, given the fact that there was pus present within this wound, I felt that it was appropriate to stage this particular closure and after pulse lavage and hemostasis was performed and achieved, the flap was placed back in the donor site and the axillary wound was then packed on the posterior side. We then turned our attention to the right axillary wound where there was also four separate defects, two superiorly and two inferiorly. All these wounds were marked out and first we excised the posterior ones resulting in a defect that measured 10 x 4 cm and once the superior wound was excised, this resulted in a defect that measured approximately 20 cm2. The total defect size was approximately 55 cm2 of both the superior and inferior axillary wounds. Once this was done, the wound was copiously irrigated with pulse lavage. In order to be able to completely close this, we had to mobilize the skin flaps to allow for adjacent tissue transfer. Once the skin flaps were fully mobilized and the incisions were made to allow for full transfer of the tissues, a TRANG drain was placed in the inferior wound and the wound was then closed by reapproximating the skin edges to complete the adjacent tissue transfer, both superiorly and inferiorly using #0 and 2-0 Vicryl sutures and jose were used to close the skin. Both axillary incisions were then securely dressed with gauze and Medipore tape. The patient tolerated the procedure well. There were no complications. Aydee Gramajo M.D. DR: Andi JOB#: [id number] CC: MAGDALENA
[2017-02-20] MEDS: PCA shift volume MISC SCH (19:43)
[2017-02-20] MEDS: Heparin 5000 units/ml inj SUBQ SCH (21:12)
[2017-02-20] MEDS: Dyna-Hex 2% Top Sol 2oz TOPIC SCH (21:12)
[2017-02-21] VITALS: BP 117/90
[2017-02-21 04:00] VITALS: BP 141/79
[2017-02-21] MEDS ORDERED: Vancomycin 750mg/D5W 275ml IVPB SCH ×4 (07:00)
[2017-02-21] MEDS: PCA shift volume MISC SCH ×2 (07:06→19:00)
[2017-02-21] MEDS: D5 1/2NS 1,000 ML IV SCH ×2 (07:07→20:53)
[2017-02-21 08:00] VITALS: BP 132/75
[2017-02-21] MEDS: DiphenhydrAMINE 50mg/ml Inj IVP PRN ×2 (08:38→19:24)
[2017-02-21] MEDS: Docusate 100mg cap ORAL SCH ×2 (08:39→17:22)
[2017-02-21] MEDS: PRISTIQ 50 MG ORAL SCH (08:39)
[2017-02-21] MEDS: Heparin 5000 units/ml inj SUBQ SCH ×2 (08:50→20:52)
--- NOTE | 2017-02-21 10:05 | 48 Hour Post Anesthesia Eval ---
Post Anesthesia Evaluation Procedure: Bilateral Excision of axillary HS with partial wounds closure Date of Evaluation: Feb 21, 2017 Time of Evaluation: 10:04 Blood Pressure Systolic: 146 0: 78 Pulse Rate: 72 Respiratory Rate: 24 Temperature (Fahrenheit): 97.8 O2 Sat by Pulse Oximetry: 98 Airway: patent Nausea: No Vomiting: No Pain Intensity: 3 Hydration Status: adequate Cardiopulmonary Status: stable Mental Status/LOC: patient returned to baseline Follow-up Care/Observations: n/a Post-Anesthesia Complications: none Follow-up care needed: N/A GERTRUDE JENKINS M.D. Feb 21, 2017 10:05
--- NOTE | 2017-02-21 10:25 | General Progress Note ---
Progress Note Progress Note Pt seen and examined. POD # 1 and doing well. Dressings are CDI TRANG drain with minimal SS output. Plan for flap closure of left axillary wound wound on Mon AM. Ambulate today. MD JENNY Chin AMIR Feb 21, 2017 10:25
[2017-02-21 12:00] VITALS: BP 123/73
--- NOTE | 2017-02-21 13:29 | General Progress Note ---
Assessment/Plan Problem List: (1) Postoperative urinary retention ICD Codes: N99.89 - Other postprocedural complications and disorders of genitourinary system; R33.8 - Other retention of urine SNOMED: 855465438 (2) Abscess ICD Codes: L02.91 - Cutaneous abscess, unspecified SNOMED: 223933179 (3) Hidradenitis suppurativa ICD Codes: L73.2 - Hidradenitis suppurativa SNOMED: 44669496 (4) depression/anxiety Status: stable Assessment/Plan Appreciate surgery rec's Cont IV vanco + pre-med w/ benadryl F/u cultures s/p Excision of infected tissue and reconstruction on 02/20/[address] [facility] today if unable to void on own Check U/A w/ reflex Post operative recommendations include: - encourage mobilization/ambulation - encourage incentive spirometry to optimize pulmonary hygiene - DVT/GI prophylaxis as appropriate - ctm CBC and hemodynamics - ctm electrolytes, adjust/replete prn - pain control, supportive care, bowel regimen - itching control w/ benadryl PRN FULL CODE 33min of extra time was spent on this case in addition to normal encounter time for care/coordination and counseling. D/w pt/family, RN, SW/CM, surgery regarding mgmt and dispo. D/w surgery re postop mgmt Subjective Date patient seen: Feb 21, 2017 Time patient seen: 12:00 ROS Limited/Unobtainable: No Constitutional: Reports: no symptoms HEENT: Reports: no symptoms Cardiovascular: Reports: no symptoms Respiratory: Reports: no symptoms Gastrointestinal/Abdominal: Reports: no symptoms Genitourinary: Reports: other Neurologic/Psychiatric: Reports: no symptoms Endocrine: Reports: no symptoms Hematologic/Lymphatic: Reports: no symptoms Allergies: Coded Allergies: CEFDINIR (Verified Allergy, Unknown, 07/31/16) CEPHALEXIN (Verified Allergy, Unknown, 07/31/16) CIPROFLOXACIN (Verified Allergy, Unknown, 07/31/16) DOXYCYCLINE (Unverified Allergy, Unknown, 07/31/16) ERYTHROMYCIN BASE (Unverified Allergy, Unknown, 07/31/16) LEVOFLOXACIN (Verified Allergy, Unknown, 07/31/16) MORPHINE (Verified Allergy, Unknown, 07/31/16) MUPIROCIN (Verified Allergy, Unknown, 07/31/16) PENICILLINS (Unverified Allergy, Unknown, 07/31/16) SULFA (SULFONAMIDE ANTIBIOTICS) (Unverified Allergy, Unknown, 07/31/16) All Systems: reviewed and negative except above Subjective No acute o/n events s/p Excision of infected tissue and reconstruction POD#1 Pt doing well. Noted to have urinary retention requiring straight cath this AM. Still has not voided on own. Pain controlled. Denies f/c, n/v, d/c, chest pain, SOB. No gas or BM yet Itching improved Objective Last 24 Hour Vital Signs Date Time Temp Pulse Resp B/P (MAP) Pulse Ox O2 Delivery O2 Flow Rate FiO2 02/21/17 11:27 24 02/21/17 10:05 72 24 98 02/21/17 08:00 20 02/21/17 08:00 98.7 89 18 132/75 95 Room Air 02/21/17 04:00 20 02/21/17 04:00 98.8 83 18 141/79 95 Room Air 02/21/17 00:00 20 02/21/17 00:00 98.6 99 18 117/90 93 Room Air 02/20/17 20:00 97.7 104 18 146/86 95 Room Air 02/20/17 20:00 20 02/20/17 18:30 17 02/20/17 16:00 97.4 78 16 149/77 96 Nasal Cannula 3.0 02/20/17 14:30 17 02/20/17 14:00 15 02/20/17 13:30 15 Intake and Output 02/20/17 02/21/17 19:00 07:00 Intake Total 2177.5 ml 1062.5 ml Output Total 100 ml 300 ml Balance 2077.5 ml 762.5 ml Intake Oral 240 ml 500 ml IV Total 1937.5 ml 562.5 ml Output Drainage Total 0 ml Estimated Blood Loss 100 ml Other 300 ml Laboratory Tests 02/21/17 04:09: Vancomycin Level Trough 17.6H Height (Feet): 5 Height (Inches): 7.00 Weight (Pounds): 228 Objective General: alert, cooperative, no distress, appears stated age Head: normocephalic, without obvious abnormality, atraumatic Eyes: conjunctivae/corneas clear. PERRL, EOM's intact Throat: lips, mucosa, and tongue normal. MMM Neck: supple, symmetrical, trachea midline, and no JVD Lungs: clear to auscultation bilaterally Heart: regular rate and rhythm, S1, S2 normal, no murmur, click, rub or gallop Abdomen: soft, non-tender, non-distended, bowel sounds normal; no masses or organomegaly Extremities: extremities normal, atraumatic, no cyanosis or edema Pulses: 2+ and symmetric Skin: skin color, texture, turgor normal; dressing c/d/i Neurologic: grossly normal, no focal deficits Shorty Lemon M.D. Feb 21, 2017 13:29
[2017-02-21 15:25] LABS: APPEARANCE,URINE SLIGHTLY CLOUDY; BILIRUBIN, URINE NEGATIVE (NEGATIVE); GLUCOSE, URINE (UA) NEGATIVE (NEGATIVE); KETONES,URINE NEGATIVE (NEGATIVE); LEUKOCYTE ESTERASE ,URINE 2+ (NEGATIVE); NITRITE,URINE NEGATIVE (NEGATIVE); PH,URINE 5 (4.5-8.0); PROTEIN,URINE NEGATIVE (NEGATIVE); UROBILINOGEN,URINE NORMAL MG/DL (0.0-1.0)
[2017-02-21 15:33] LABS: COLOR,URINE YELLOW
[2017-02-21 16:00] VITALS: BP 96/67
[2017-02-21] MEDS: PCA HYDROmorphone 1mg/ml 30 ML IV PRN (17:29)
[2017-02-21] MEDS: Vancomycin 750mg/NS 250ml 250 ML IVPB SCH (19:24)
[2017-02-21 20:48] VITALS: BP 113/62
[2017-02-21] MEDS: Dyna-Hex 2% Top Sol 2oz TOPIC SCH (20:48)
[2017-02-21] MEDS ORDERED: D5 1/2NS 1000ml IV ONE ×2 (22:32→22:33)
[2017-02-22] MEDS: D5NS 1,000 ML IV SCH
[2017-02-22 00:28] VITALS: BP 116/59
[2017-02-22] MEDS: Vancomycin 750mg/NS 250ml 250 ML IVPB SCH ×2 (06:59→18:34)
[2017-02-22] MEDS: DiphenhydrAMINE 50mg/ml Inj IVP PRN ×2 (06:59→18:26)
[2017-02-22] MEDS ORDERED: Rate Change PCA 1 Each MISC PRN (07:00)
[2017-02-22] MEDS: PCA shift volume MISC SCH ×2 (07:36→19:22)
[2017-02-22 08:00] VITALS: BP 122/69
[2017-02-22] MEDS ORDERED: Naloxone 0.4mg/ml Inj IV PRN (08:00)
[2017-02-22] MEDS: Docusate 100mg cap ORAL SCH ×2 (08:23→18:26)
[2017-02-22] MEDS: PRISTIQ 50 MG ORAL SCH (08:24)
[2017-02-22] MEDS: Heparin 5000 units/ml inj SUBQ SCH ×2 (08:29→21:49)
[2017-02-22] MEDS ORDERED: PCA HYDROmorphone 1mg/ml 30 ML IV PRN (09:15)
[2017-02-22] MEDS: D5 1/2NS 1,000 ML IV SCH (11:45)
--- NOTE | 2017-02-22 11:52 | General Progress Note ---
Assessment/Plan Problem List: (1) Postoperative urinary retention ICD Codes: N99.89 - Other postprocedural complications and disorders of genitourinary system; R33.8 - Other retention of urine SNOMED: 269051207 (2) Abscess ICD Codes: L02.91 - Cutaneous abscess, unspecified SNOMED: 926911862 (3) Hidradenitis suppurativa ICD Codes: L73.2 - Hidradenitis suppurativa SNOMED: 06686352 (4) depression/anxiety (5) Acute blood loss anemia ICD Codes: D62 - Acute posthemorrhagic anemia SNOMED: 969104010 Status: stable Assessment/Plan Appreciate surgery rec's Cont IV vanco + pre-med w/ benadryl F/u cultures s/p Excision of infected tissue and reconstruction on 02/20/17 NPO at [facility] for OR tomorrow mIVFs Lay placed on 02/21/17 given urinary retention F/u urine culture Post operative recommendations include: - encourage mobilization/ambulation - encourage incentive spirometry to optimize pulmonary hygiene - DVT/GI prophylaxis as appropriate - ctm CBC and hemodynamics - ctm electrolytes, adjust/replete prn - pain control, supportive care, bowel regimen - itching control w/ benadryl PRN FULL CODE 31min of extra time was spent on this case in addition to normal encounter time for care/coordination and counseling. D/w pt/family, RN, SW/CM, surgery regarding mgmt and dispo. D/w surgery re postop mgmt Subjective Date patient seen: Feb 22, 2017 Time patient seen: 11:52 ROS Limited/Unobtainable: No Constitutional: Reports: no symptoms HEENT: Reports: no symptoms Cardiovascular: Reports: no symptoms Respiratory: Reports: no symptoms Gastrointestinal/Abdominal: Reports: no symptoms Genitourinary: Reports: no symptoms Neurologic/Psychiatric: Reports: no symptoms Endocrine: Reports: no symptoms Hematologic/Lymphatic: Reports: no symptoms Allergies: Coded Allergies: CEFDINIR (Verified Allergy, Unknown, 07/31/16) CEPHALEXIN (Verified Allergy, Unknown, 07/31/16) CIPROFLOXACIN (Verified Allergy, Unknown, 07/31/16) DOXYCYCLINE (Unverified Allergy, Unknown, 07/31/16) ERYTHROMYCIN BASE (Unverified Allergy, Unknown, 07/31/16) LEVOFLOXACIN (Verified Allergy, Unknown, 07/31/16) MORPHINE (Verified Allergy, Unknown, 07/31/16) MUPIROCIN (Verified Allergy, Unknown, 07/31/16) PENICILLINS (Unverified Allergy, Unknown, 07/31/16) SULFA (SULFONAMIDE ANTIBIOTICS) (Unverified Allergy, Unknown, 07/31/16) Subjective No acute o/n events s/p Excision of infected tissue and reconstruction POD#2 Lay placed yesterday given urinary retention Pt doing well. Pain controlled. Denies f/c, n/v, d/c, chest pain, SOB. +Gas, no BM yet. Ambulating Objective Last 24 Hour Vital Signs Date Time Temp Pulse Resp B/P (MAP) Pulse Ox O2 Delivery O2 Flow Rate FiO2 02/22/17 08:00 98.8 86 18 122/69 94 02/22/17 07:42 16 02/22/17 04:00 16 02/22/17 00:28 98.4 79 20 116/59 91 02/22/17 00:00 16 02/21/17 20:48 98.6 87 19 113/62 88 02/21/17 20:00 16 02/21/17 17:59 99.0 02/21/17 16:00 98.7 85 17 96/67 93 Room Air 02/21/17 16:00 17 02/21/17 12:00 99.0 89 20 123/73 99 Room Air Intake and Output 02/21/17 02/22/17 19:00 07:00 Intake Total 1470 ml 1015.00 ml Output Total 1005 ml Balance 1470 ml 10.00 ml Intake Oral 720 ml 240 ml IV Total 750 ml 775.00 ml Output Urine Total 1000 ml Drainage Total 5 ml Laboratory Tests 02/21/17 14:00: Urine Color Yellow, Urine Appearance Slightly cloudy, Urine pH 5, Urine Specific [place] 1.020, Urine Protein Negative, Urine Glucose (UA) Negative, Urine Ketones Negative, Urine Occult Blood 1+H, Urine Nitrite Negative, Urine Bilirubin Negative, Urine Urobilinogen Normal, Urine Leukocyte Esterase 2+H, Urine RBC 5-10H, Urine WBC 10-15H, Urine Squamous Epithelial Cells Few, Urine Amorphous Sediment FewH, Urine Bacteria ModerateH Height (Feet): 5 Height (Inches): 7.00 Weight (Pounds): 228 Objective General: alert, cooperative, no distress, appears stated age Head: normocephalic, without obvious abnormality, atraumatic Eyes: conjunctivae/corneas clear. PERRL, EOM's intact Throat: lips, mucosa, and tongue normal. MMM Neck: supple, symmetrical, trachea midline, and no JVD Lungs: clear to auscultation bilaterally Heart: regular rate and rhythm, S1, S2 normal, no murmur, click, rub or gallop Abdomen: soft, non-tender, non-distended, bowel sounds normal; no masses or organomegaly Extremities: extremities normal, atraumatic, no cyanosis or edema Pulses: 2+ and symmetric Skin: skin color, texture, turgor normal; dressing c/d/i Neurologic: grossly normal, no focal deficits Shorty Lemon M.D. Feb 22, 2017 11:52
[2017-02-22 12:00] VITALS: BP 131/82
[2017-02-22 16:16] VITALS: BP 122/62
[2017-02-22 18:49] LABS: ANION GAP 6 mmol/L (5-15); BLOOD UREA NITROGEN 9 mg/dL (7-18); CALCIUM 7.8 MG/DL (8.5-10.1); CARBON DIOXIDE 30 MMOL/L (21-32); CHLORIDE 99 MMOL/L (98-107); CREATININE 1.3 MG/DL (0.55-1.30); POTASSIUM 4.1 MMOL/L (3.5-5.1); SODIUM 135 MMOL/L (136-145)
[2017-02-22 19:02] LABS: EOSINOPHILS % (AUTO) 4.7 % (0.0-3.0); HEMATOCRIT 35.4 % (37.0-47.0); HEMOGLOBIN 11.1 G/DL (12.0-16.0); LYMPHOCYTES % (AUTO) 22.7 % (20.0-45.0); MEAN CORPUSCULAR VOLUME 87 FL (80-99); MONOCYTES % (AUTO) 5.7 % (1.0-10.0); NEUTROPHILS % (AUTO) 65.9 % (45.0-75.0); PLATELET COUNT 215 K/UL (150-450); RED BLOOD COUNT 4.06 M/UL (4.20-5.40); WHITE BLOOD COUNT 10.6 K/UL (4.8-10.8)
[2017-02-22 20:00] VITALS: BP 114/58
[2017-02-22] MEDS ORDERED: Zolpidem 5mg tab ORAL PRN (21:00)
[2017-02-22] MEDS: Dyna-Hex 2% Top Sol 2oz TOPIC SCH (21:42)
[2017-02-23] VITALS (17 sets, daily range): BP systolic 95–149; BP diastolic 45–84
[2017-02-23] MEDS: D5NS 1,000 ML IV SCH
[2017-02-23] MEDS: DiphenhydrAMINE 50mg/ml Inj IVP PRN ×2 (06:28→21:13)
[2017-02-23] MEDS: Vancomycin 750mg/NS 250ml 250 ML IVPB SCH ×2 (06:28→21:12)
[2017-02-23] MEDS ORDERED: DiphenhydrAMINE 50mg/ml Inj IVP PRN ×2 (07:00→10:45)
[2017-02-23] MEDS: PCA shift volume MISC SCH ×2 (07:23→19:00)
[2017-02-23] MEDS ORDERED: NS Irrig 1000ml ONE (08:00)
[2017-02-23] MEDS ORDERED: Glycopyrrolate 0.2mg/ml 1ml Vial ONE (08:00)
[2017-02-23] MEDS ORDERED: Zemuron 50mg/5ml Inj IV ONE (08:00)
[2017-02-23] MEDS ORDERED: Sterile Water Irrig 1000ml IRRIG ONE (08:00)
[2017-02-23] MEDS ORDERED: Ketorolac 30mg Inj ONE (08:00)
[2017-02-23] MEDS ORDERED: Succinylcholine 20mg/ml 10ml vial ONE (08:00)
[2017-02-23] MEDS ORDERED: Propofol 200mg/20ml IV ONE ×2 (08:00→09:21)
[2017-02-23] MEDS ORDERED: LR 1000ml ONE (08:00)
[2017-02-23] MEDS ORDERED: Neostigmine 1mg/ml 10ml Inj ONE (08:00)
[2017-02-23] MEDS ORDERED: fentaNYL 100 mcg/2 mL IV ONE ×3 (08:00)
[2017-02-23] MEDS: Heparin 5000 units/ml inj SUBQ SCH ×2 (08:30→20:13)
[2017-02-23] MEDS ORDERED: EPINEPHrine 1mg/1ml Amp ONE (08:49)
[2017-02-23] MEDS ORDERED: Lidocaine 1% 10mg/ml/EPI 0.01mg/ml 50ml INJ ONE (08:49)
[2017-02-23] MEDS ORDERED: NeoSporin Gu Irrig 1ml Amp IRRIG ONE (08:49)
[2017-02-23] MEDS ORDERED: Bacitracin 50000 Units Vial ONE (08:49)
[2017-02-23] MEDS: Docusate 100mg cap ORAL SCH ×2 (09:00→17:01)
--- NOTE | 2017-02-23 09:32 | Anethesia Preoperative Eval ---
Anesthesia Pre-op PMH/ROS General Date of Evaluation: Feb 23, 2017 Time of Evaluation: 09:28 Anesthesiologist: Demar ASA Score: ASA 3 Mallampati Score Class I : Soft palate, uvula, fauces, pillars visible Class II: Soft palate, uvula, fauces visible Class III: Soft palate, base of uvula visible Class IV: Only hard plate visible Mallampati Classification: Class III Surgeon: Avila Diagnosis: Recurrent HS Surgical Procedure: Revision and closure of bilateral axillary wounds Anesthesia History: none Family History: no anesthesia problems Allergies: Coded Allergies: CEFDINIR (Verified Allergy, Unknown, 07/31/16) CEPHALEXIN (Verified Allergy, Unknown, 07/31/16) CIPROFLOXACIN (Verified Allergy, Unknown, 07/31/16) DOXYCYCLINE (Unverified Allergy, Unknown, 07/31/16) ERYTHROMYCIN BASE (Unverified Allergy, Unknown, 07/31/16) LEVOFLOXACIN (Verified Allergy, Unknown, 07/31/16) MORPHINE (Verified Allergy, Unknown, 07/31/16) MUPIROCIN (Verified Allergy, Unknown, 07/31/16) PENICILLINS (Unverified Allergy, Unknown, 07/31/16) SULFA (SULFONAMIDE ANTIBIOTICS) (Unverified Allergy, Unknown, 07/31/16) Medications: see eMAR Past Medical History Cardiovascular: Reports: HTN, Denies: CAD, PA, valve dz, arrhythmia, other Pulmonary: Denies: asthma, COPD, ANAMIKA, other Gastrointestinal/Genitourinary: Reports: GERD, Denies: CRI, ESRD, other Neurologic/Psychiatric: Reports: depression/anxiety, Denies: dementia, CVA, TIA, other Endocrine: Denies: DM, hypothyroidism, steroids, other HEENT: Denies: cataract (L), cataract (R), glaucoma, KAKE (L), KAKE (R), other Hematology/Immune: Reports: anemia - mild, Denies: DVT, bleeding disorder, other Musculoskeletal/Integumentary: Denies: OA, RA, DJD, DDD, edema, other Other: obesity PMH Narrative: as above PSxH Narrative: see H&P Anesthesia Pre-op Phys. Exam Physician Exam Last Vital Signs Date Time Temp Pulse Resp B/P (MAP) Pulse Ox O2 Delivery O2 Flow Rate FiO2 02/23/17 08:00 98.3 79 18 102/84 99 02/23/17 00:00 Nasal Cannula 2.0 Constitutional: NAD Neurologic: CN 2-12 intact Cardiovascular: RRR, no M/R/G Respiratory: CTA Gastrointestinal: other - obesity Airway Exam Mallampati Score: Class III MO: full Neck: short ROM: limited Teeth: missing Dentures: no upper, no lower Anesthesia Pre-op A/P Labs Hematology Test 02/22/17 18:20 White Blood Count 10.6 K/UL (4.8-10.8) Red Blood Count 4.06 M/UL (4.20-5.40) L Hemoglobin 11.1 G/DL (12.0-16.0) L Hematocrit 35.4 % (37.0-47.0) L Mean Corpuscular Volume 87 FL (80-99) Mean Corpuscular Hemoglobin 27.3 PG (27.0-31.0) Mean Corpuscular Hemoglobin Concent 31.3 G/DL (32.0-36.0) L Red Cell Distribution Width 12.0 % (11.6-14.8) Platelet Count 215 K/UL (150-450) Mean Platelet Volume 5.9 FL (6.5-10.1) L Neutrophils (%) (Auto) 65.9 % (45.0-75.0) Lymphocytes (%) (Auto) 22.7 % (20.0-45.0) Monocytes (%) (Auto) 5.7 % (1.0-10.0) Eosinophils (%) (Auto) 4.7 % (0.0-3.0) H Basophils (%) (Auto) 1.0 % (0.0-2.0) Chemistry Test 02/22/17 18:20 Sodium Level 135 MMOL/L (136-145) L Potassium Level 4.1 MMOL/L (3.5-5.1) Chloride Level 99 MMOL/L (98-107) Carbon Dioxide Level 30 MMOL/L (21-32) Anion Gap 6 mmol/L (5-15) Blood Urea Nitrogen 9 mg/dL (7-18) Creatinine 1.3 MG/DL (0.55-1.30) Estimat Glomerular Filtration Rate 45.6 mL/min (>60) Glucose Level 127 MG/DL (74-106) H Calcium Level 7.8 MG/DL (8.5-10.1) L Studies Pre-op Studies: EKG - NSR Risk Assessment & Plan Assessment: ASA 3 Plan: GA with ETT PONV prevention Status Change Before Surgery: No Pre-Antibiotics Drug: as scheduled Given Within 1 Hr of Incision: No GERTRUDE JENKINS M.D. Feb 23, 2017 09:32
[2017-02-23] MEDS ORDERED: PCA Education Pamphlet MISC ONE (09:45)
[2017-02-23] MEDS ORDERED: Rate Change PCA 1 Each MISC PRN (09:45)
--- NOTE | 2017-02-23 09:45 | Pre-Procedure Note/Attestation ---
Pre-Procedure Note/Attestation Complete Prior to Procedure Planned Procedure: left Procedure Narrative: Left axillary wound closure Indications for Procedure Pre-Operative Diagnosis: Bilateral axillary infection Attestation I attest that I discussed the nature of the procedure; its benefits; risks and complications; and alternatives (and the risks and benefits of such alternatives ), prior to the procedure, with the patient (or the patient's legal parts representative). I attest that, if there was a reasonable possibility of needing a blood transfusion, the patient (or the patient's legal parts representative) was given the [facility] standardized written summary, pursuant to the [place] Blood Safety Act ([place] Health and Safety Code # 1645, as amended). I attest that I re-evaluated the patient just prior to the surgery and that there has been no change in the patient's H&P, except as documented below: FRANCO ALVARADO Feb 23, 2017 09:45
[2017-02-23] MEDS ORDERED: LR 1000ml 1,000 ML IVLG SCH (10:31)
[2017-02-23] MEDS ORDERED: Midazolam 2mg/2ml Inj IVP PRN (10:45)
[2017-02-23] MEDS ORDERED: Ketorolac 30mg Inj IV PRN (10:45)
[2017-02-23] MEDS ORDERED: Metoclopramide 10mg/2ml Inj IVP PRN (10:45)
[2017-02-23] MEDS ORDERED: Meperidine 50mg/ml Inj(FOR RIGORS ONLY) IV PRN (10:45)
[2017-02-23] MEDS ORDERED: Hydromorphone 0.5mg/0.5ml inj IVP PRN (10:45)
--- NOTE | 2017-02-23 11:05 | Operative Note - PDOC ---
Operative Note Operative Note Pre-op Diagnosis: Left axillary infection Procedure: Excision of infected tissue and reconstruction Post-op Diagnosis: same as pre-op Surgeon: Avila Sole Stainer: Ayla Anesthesia: general Specimen: yes Condition: stable Estimated Blood Loss: minimal Drains: TRANG Implant(s) used?: No FRANCO ALVARADO Feb 23, 2017 11:05
--- NOTE | 2017-02-23 11:31 | Immediate Post-Op Evaluation ---
Immediate Post-Op Evalulation Immediate Post-Op Evalulation Procedure: Revision and closure of L axillary wound Date of Evaluation: Feb 23, 2017 Time of Evaluation: 11:30 IV Fluids: 500 Blood Products: none Estimated Blood Loss: <50 Urinary Output: 150 Blood Pressure Systolic: 140 Blood Pressure Diastolic: 73 Pulse Rate: 77 Respiratory Rate: 20 O2 Sat by Pulse Oximetry: 98 Temperature (Fahrenheit): 97.4 Pain Score (1-10): 2 Nausea: No Vomiting: No Complications none Patient Status: reacts, patent, extubated, none Hydration Status: adequate GERTRUDE JENKINS M.D. Feb 23, 2017 11:31
[2017-02-23] MEDS: PCA HYDROmorphone 1mg/ml 30 ML IV PRN (11:55)
--- NOTE | 2017-02-23 14:14 | General Progress Note ---
Assessment/Plan Problem List: (1) Postoperative urinary retention ICD Codes: N99.89 - Other postprocedural complications and disorders of genitourinary system; R33.8 - Other retention of urine SNOMED: 850384397 (2) Abscess ICD Codes: L02.91 - Cutaneous abscess, unspecified SNOMED: 329325021 (3) Hidradenitis suppurativa ICD Codes: L73.2 - Hidradenitis suppurativa SNOMED: 49082279 (4) depression/anxiety (5) Acute blood loss anemia ICD Codes: D62 - Acute posthemorrhagic anemia SNOMED: 143619299 Status: stable Assessment/Plan Appreciate surgery rec's Cont IV vanco + pre-med w/ benadryl F/u cultures s/p Excision of infected tissue and reconstruction on 02/20/17 s/p Excision of infected tissue and reconstruction on 02/23/17 Lay placed on 02/21/17 given urinary retention F/u urine culture Post operative recommendations include: - encourage mobilization/ambulation - encourage incentive spirometry to optimize pulmonary hygiene - DVT/GI prophylaxis as appropriate - ctm CBC and hemodynamics - ctm electrolytes, adjust/replete prn - pain control, supportive care, bowel regimen - itching control w/ benadryl PRN FULL CODE 31min of extra time was spent on this case in addition to normal encounter time for care/coordination and counseling. D/w pt/family, RN, SW/CM, surgery regarding mgmt and dispo. D/w surgery re postop mgmt Subjective Date patient seen: Feb 23, 2017 Time patient seen: 14:13 ROS Limited/Unobtainable: No Constitutional: Reports: no symptoms HEENT: Reports: no symptoms Cardiovascular: Reports: no symptoms Respiratory: Reports: no symptoms Gastrointestinal/Abdominal: Reports: no symptoms Genitourinary: Reports: no symptoms Neurologic/Psychiatric: Reports: no symptoms Endocrine: Reports: no symptoms Hematologic/Lymphatic: Reports: no symptoms Allergies: Coded Allergies: CEFDINIR (Verified Allergy, Unknown, 07/31/16) CEPHALEXIN (Verified Allergy, Unknown, 07/31/16) CIPROFLOXACIN (Verified Allergy, Unknown, 07/31/16) DOXYCYCLINE (Unverified Allergy, Unknown, 07/31/16) ERYTHROMYCIN BASE (Unverified Allergy, Unknown, 07/31/16) LEVOFLOXACIN (Verified Allergy, Unknown, 07/31/16) MORPHINE (Verified Allergy, Unknown, 07/31/16) MUPIROCIN (Verified Allergy, Unknown, 07/31/16) PENICILLINS (Unverified Allergy, Unknown, 07/31/16) SULFA (SULFONAMIDE ANTIBIOTICS) (Unverified Allergy, Unknown, 07/31/16) All Systems: reviewed and negative except above Subjective No acute o/n events s/p Excision of infected tissue and reconstruction POD#4 s/p Excision of infected tissue and reconstruction POD#1 Pt doing well. Pain controlled. Denies f/c, n/v, d/c, chest pain, SOB. +Gas, no BM yet. Slept better Objective Last 24 Hour Vital Signs Date Time Temp Pulse Resp B/P (MAP) Pulse Ox O2 Delivery O2 Flow Rate FiO2 02/23/17 14:00 77 21 134/68 100 Nasal Cannula 3.0 02/23/17 13:52 97.8 02/23/17 13:45 97.6 02/23/17 13:45 17 02/23/17 13:45 76 19 132/64 100 Nasal Cannula 3.0 02/23/17 13:30 77 20 137/61 99 Nasal Cannula 3.0 02/23/17 13:20 78 18 124/64 100 Nasal Cannula 3.0 02/23/17 13:10 85 17 135/64 99 Nasal Cannula 3.0 02/23/17 13:00 83 18 140/69 98 Nasal Cannula 3.0 02/23/17 12:45 18 02/23/17 12:40 77 20 137/78 96 Nasal Cannula 3.0 02/23/17 12:30 22 02/23/17 12:30 79 22 138/65 96 Nasal Cannula 3.0 02/23/17 12:15 20 02/23/17 12:15 76 20 149/67 96 Nasal Cannula 3.0 02/23/17 12:00 18 02/23/17 12:00 82 16 140/67 97 Nasal Cannula 3.0 02/23/17 11:31 77 20 98 02/23/17 11:30 79 20 143/71 99 Nasal Cannula 3.0 02/23/17 11:22 97.2 73 18 136/73 98 Nasal Cannula 2.0 02/23/17 08:00 98.3 79 18 102/84 99 02/23/17 04:00 20 02/23/17 00:00 20 02/23/17 00:00 98.1 85 18 97/63 94 Nasal Cannula 2.0 02/22/17 20:00 20 02/22/17 20:00 98.8 80 18 114/58 93 Room Air 02/22/17 18:45 98.6 02/22/17 16:16 98.6 82 18 122/62 94 Room Air 02/22/17 16:00 20 Intake and Output 02/22/17 02/23/17 19:00 07:00 Intake Total 1502.5 ml 1012.5 ml Output Total 650 ml 1503 ml Balance 852.5 ml -490.5 ml Intake Oral 840 ml 300 ml IV Total 662.5 ml 712.5 ml Output Urine Total 650 ml 1500 ml Drainage Total 3 ml Laboratory Tests 02/22/17 18:20: White Blood Count 10.6, Red Blood Count 4.06L, Hemoglobin 11.1L, Hematocrit 35.4L, Mean Corpuscular Volume 87, Mean Corpuscular Hemoglobin 27.3, Mean Corpuscular Hemoglobin Concent 31.3L, Red Cell Distribution Width 12.0, Platelet Count 215, Mean Platelet Volume 5.9L, Neutrophils (%) (Auto) 65.9, Lymphocytes (%) (Auto) 22.7, Monocytes (%) (Auto) 5.7, Eosinophils (%) (Auto) 4.7H, Basophils (%) (Auto) 1.0, Sodium Level 135L, Potassium Level 4.1, Chloride Level 99, Carbon Dioxide Level 30, Anion Gap 6, Blood Urea Nitrogen 9, Creatinine 1.3, Estimat Glomerular Filtration Rate 45.6, Glucose Level 127H, Calcium Level 7.8L, Vancomycin Level Trough 10.7 Height (Feet): 5 Height (Inches): 7.00 Weight (Pounds): 228 Objective General: alert, cooperative, no distress, appears stated age Head: normocephalic, without obvious abnormality, atraumatic Eyes: conjunctivae/corneas clear. PERRL, EOM's intact Throat: lips, mucosa, and tongue normal. MMM Neck: supple, symmetrical, trachea midline, and no JVD Lungs: clear to auscultation bilaterally Heart: regular rate and rhythm, S1, S2 normal, no murmur, click, rub or gallop Abdomen: soft, non-tender, non-distended, bowel sounds normal; no masses or organomegaly Extremities: extremities normal, atraumatic, no cyanosis or edema Pulses: 2+ and symmetric Skin: skin color, texture, turgor normal; dressing c/d/i Neurologic: grossly normal, no focal deficits Shorty Lemon M.D. Feb 23, 2017 14:14
[2017-02-23] MEDS: PRISTIQ 50 MG ORAL SCH (15:20)
--- NOTE | 2017-02-23 16:00 | Operative Note - Dictated ---
DATE OF OPERATION: 02/23/2017 PREOPERATIVE DIAGNOSIS: Open left axillary wound status post flap elevation. POSTOPERATIVE DIAGNOSIS: Open left axillary wound status post flap elevation. PROCEDURES: 1. Left axillary wound debridement in preparation for flap transfer. 2. Adjacent tissue transfer closure of left axillary wound measuring 40 cm2. SURGEON: Aydee Gramajo M.D. CLASS B DRIVER: Susy Aguila M.D. ANESTHESIA: General. COMPLICATIONS: None. DRAINS: Included a 15 TRANG. DISPOSITION: Stable to the recovery room. INDICATIONS FOR SURGERY: This is a 37-year-old female, who is now three days postop from bilateral axillary reconstruction. Her left axilla had an area of significant abscess, which after debridement was left open and was undergoing wet-to-dry dressing changes and she is now prepared to undergo definitive flap closure of the wound. She understands the risks and benefits of surgery and agrees to proceed. DETAILS OF THE OPERATION: The patient was brought to the operating room and laid in the supine position on the operating table. Her left axilla was prepped and draped in a sterile and usual fashion. We noted that the superior aspect of the axilla, which had been previously reconstructed, was healing well. The left axillary wound measured 8 x 5 cm that needed some debridement of the nonviable skin edges as well as some of the tissues within the flap itself that had been previously elevated. The flap had some distally ischemic areas, which had to be debrided to punctate and healthy bleeding. Once this was done, the wound was copiously irrigated with pulse lavage. We had to re-elevate some of the donor site flaps to allow for donor site closure. Once this was done, we then proceeded to place a #[address] and with further mobilization of the flap, the flap was then transferred into the defect and inset over the TRANG drain using #0 and 2-0 Vicryl sutures. Lamar were used to close the skin. The donor site was also closed with #0 and 2-0 Vicryl sutures as well as lamar. The patient tolerated the procedure well. There were no complications. Aydee Gramajo M.D. DR: RAFAEL JOB#: [id number] CC:
[2017-02-23 19:09] LABS: ANION GAP 8 mmol/L (5-15); BLOOD UREA NITROGEN 8 mg/dL (7-18); CALCIUM 7.4 MG/DL (8.5-10.1); CARBON DIOXIDE 24 MMOL/L (21-32); CHLORIDE 104 MMOL/L (98-107); CREATININE 1.3 MG/DL (0.55-1.30); POTASSIUM 4.1 MMOL/L (3.5-5.1); SODIUM 136 MMOL/L (136-145)
[2017-02-23] MEDS: Dyna-Hex 2% Top Sol 2oz TOPIC SCH (20:08)
[2017-02-23] MEDS ORDERED: Miralax 17gm pkt ORAL SCH (21:00)
[2017-02-23] MEDS: Zolpidem 5mg tab ORAL PRN (21:13)
[2017-02-23] MEDS: Sennosides 8.6mg ORAL SCH (21:13)
[2017-02-24] VITALS: BP 98/52
[2017-02-24 04:57] VITALS: BP 101/69
[2017-02-24] MEDS: PCA shift volume MISC SCH ×2 (07:19→19:28)
[2017-02-24 08:00] VITALS: BP 130/84
--- NOTE | 2017-02-24 08:25 | General Progress Note ---
Progress Note Progress Note Pt seen and examined. POD# 1 from closure of left axillary wound. Doing well. Both axillary wounds examined and incisions are clean with no infection Removed the right axillary TRANG. Ambulate and continue pain meds and IV abx. FRANCO Duenas MD Feb 24, 2017 08:25
[2017-02-24] MEDS ORDERED: HYDROmorphone 1mg/ml Carpuject IVP ONE (09:30)
[2017-02-24] MEDS ORDERED: Hydromorphone 0.5mg/0.5ml inj IVP ONE (09:45)
[2017-02-24] MEDS: Vancomycin 750mg/NS 250ml 250 ML IVPB SCH ×2 (10:12→21:24)
[2017-02-24] MEDS: PRISTIQ 50 MG ORAL SCH (10:13)
[2017-02-24] MEDS: Docusate 100mg cap ORAL SCH ×2 (10:13→17:56)
[2017-02-24] MEDS: DiphenhydrAMINE 50mg/ml Inj IVP PRN ×2 (10:14→21:27)
[2017-02-24] MEDS: Heparin 5000 units/ml inj SUBQ SCH ×2 (10:16→21:35)
--- NOTE | 2017-02-24 11:32 | 48 Hour Post Anesthesia Eval ---
Post Anesthesia Evaluation Procedure: Revision and closure of L axillary wound Date of Evaluation: Feb 24, 2017 Time of Evaluation: 11:30 Blood Pressure Systolic: 130 0: 84 Pulse Rate: 94 Respiratory Rate: 19 Temperature (Fahrenheit): 99.1 O2 Sat by Pulse Oximetry: 98 Airway: patent Nausea: No Vomiting: No Pain Intensity: 3 Hydration Status: adequate Cardiopulmonary Status: Stable Mental Status/LOC: patient returned to baseline Follow-up Care/Observations: As per surgery Post-Anesthesia Complications: No anesthetic complication Follow-up care needed: N/A QASIM ROGERS M.D. Feb 24, 2017 11:32
[2017-02-24 12:00] VITALS: BP 116/60
[2017-02-24] MEDS: PCA HYDROmorphone 1mg/ml 30 ML IV PRN (12:04)
[2017-02-24 16:00] VITALS: BP 122/57
--- NOTE | 2017-02-24 18:07 | General Progress Note ---
Assessment/Plan Problem List: (1) Postoperative urinary retention ICD Codes: N99.89 - Other postprocedural complications and disorders of genitourinary system; R33.8 - Other retention of urine SNOMED: 451334886 (2) Abscess ICD Codes: L02.91 - Cutaneous abscess, unspecified SNOMED: 963570802 (3) Hidradenitis suppurativa ICD Codes: L73.2 - Hidradenitis suppurativa SNOMED: 53825887 (4) depression/anxiety (5) Acute blood loss anemia ICD Codes: D62 - Acute posthemorrhagic anemia SNOMED: 886519049 Status: stable Assessment/Plan Appreciate surgery rec's Cont IV vanco + pre-med w/ benadryl F/u cultures s/p Excision of infected tissue and reconstruction on 02/20/17 s/p Excision of infected tissue and reconstruction on 02/23/17 TRANG drain per surgery--R axillary TRANG drain removed today Lay placed on 02/21/17 given urinary retention F/u urine culture Post operative recommendations include: - encourage mobilization/ambulation - encourage incentive spirometry to optimize pulmonary hygiene - DVT/GI prophylaxis as appropriate - ctm CBC and hemodynamics - ctm electrolytes, adjust/replete prn - pain control, supportive care, bowel regimen - itching control w/ benadryl PRN FULL CODE 31min of extra time was spent on this case in addition to normal encounter time for care/coordination and counseling. D/w pt/family, RN, SW/CM, surgery regarding mgmt and dispo. D/w surgery re postop mgmt Subjective Date patient seen: Feb 24, 2017 Time patient seen: 18:07 ROS Limited/Unobtainable: No Constitutional: Reports: no symptoms HEENT: Reports: no symptoms Cardiovascular: Reports: no symptoms Respiratory: Reports: no symptoms Gastrointestinal/Abdominal: Reports: no symptoms Genitourinary: Reports: no symptoms Neurologic/Psychiatric: Reports: no symptoms Endocrine: Reports: no symptoms Hematologic/Lymphatic: Reports: no symptoms Allergies: Coded Allergies: CEFDINIR (Verified Allergy, Unknown, 07/31/16) CEPHALEXIN (Verified Allergy, Unknown, 07/31/16) CIPROFLOXACIN (Verified Allergy, Unknown, 07/31/16) DOXYCYCLINE (Unverified Allergy, Unknown, 07/31/16) ERYTHROMYCIN BASE (Unverified Allergy, Unknown, 07/31/16) LEVOFLOXACIN (Verified Allergy, Unknown, 07/31/16) MORPHINE (Verified Allergy, Unknown, 07/31/16) MUPIROCIN (Verified Allergy, Unknown, 07/31/16) PENICILLINS (Unverified Allergy, Unknown, 07/31/16) SULFA (SULFONAMIDE ANTIBIOTICS) (Unverified Allergy, Unknown, 07/31/16) All Systems: reviewed and negative except above Subjective No acute o/n events s/p Excision of infected tissue and reconstruction POD#5 s/p Excision of infected tissue and reconstruction POD#2 R axillary drain removed today Pt doing well. Pain controlled. Denies f/c, n/v, d/c, chest pain, SOB. +Gas, no BM yet. Slept better Objective Last 24 Hour Vital Signs Date Time Temp Pulse Resp B/P (MAP) Pulse Ox O2 Delivery O2 Flow Rate FiO2 02/24/17 16:00 98.8 76 19 122/57 99 02/24/17 12:30 99.1 02/24/17 12:00 98.5 77 19 116/60 99 02/24/17 12:00 18 02/24/17 11:32 94 19 98 02/24/17 10:45 99.1 02/24/17 08:00 20 02/24/17 08:00 99.1 94 19 130/84 98 02/24/17 04:57 98.4 84 17 101/69 93 02/24/17 04:00 20 02/24/17 00:00 98.6 83 19 98/52 94 02/23/17 23:54 20 02/23/17 21:13 98.3 02/23/17 20:00 98.7 87 17 95/45 94 02/23/17 20:00 20 Intake and Output 02/23/17 02/24/17 19:00 07:00 Intake Total 475 ml 1075.0 ml Output Total 965 ml 509 ml Balance -490 ml 566.0 ml Intake Oral 300 ml 300 ml IV Total 175 ml 775.0 ml Output Urine Total 950 ml 500 ml Drainage Total 15 ml 9 ml Laboratory Tests 02/23/17 18:30: Sodium Level 136, Potassium Level 4.1, Chloride Level 104, Carbon Dioxide Level 24, Anion Gap 8, Blood Urea Nitrogen 8, Creatinine 1.3, Estimat Glomerular Filtration Rate 45.6, Glucose Level 123H, Calcium Level 7.4L, Random Vancomycin Level 11.0 Height (Feet): 5 Height (Inches): 7.00 Weight (Pounds): 228 Objective General: alert, cooperative, no distress, appears stated age Head: normocephalic, without obvious abnormality, atraumatic Eyes: conjunctivae/corneas clear. PERRL, EOM's intact Throat: lips, mucosa, and tongue normal. MMM Neck: supple, symmetrical, trachea midline, and no JVD Lungs: clear to auscultation bilaterally Heart: regular rate and rhythm, S1, S2 normal, no murmur, click, rub or gallop Abdomen: soft, non-tender, non-distended, bowel sounds normal; no masses or organomegaly Extremities: extremities normal, atraumatic, no cyanosis or edema Pulses: 2+ and symmetric Skin: skin color, texture, turgor normal; dressing c/d/i Neurologic: grossly normal, no focal deficits Shorty Lemon M.D. Feb 24, 2017 18:07
[2017-02-24 20:14] VITALS: BP 112/69
[2017-02-24] MEDS: Sennosides 8.6mg ORAL SCH (21:23)
[2017-02-24] MEDS: Dyna-Hex 2% Top Sol 2oz TOPIC SCH (21:23)
[2017-02-24] MEDS: Zolpidem 5mg tab ORAL PRN (21:24)
[2017-02-25] VITALS: BP 104/67
[2017-02-25 04:28] VITALS: BP 115/70
[2017-02-25] MEDS: PCA shift volume MISC SCH ×2 (07:04→19:27)
[2017-02-25 08:00] VITALS: BP 144/83
[2017-02-25] MEDS ORDERED: Rate Change PCA 1 Each MISC PRN (08:00)
[2017-02-25] MEDS: Vancomycin 750mg/NS 250ml 250 ML IVPB SCH ×2 (08:57→21:56)
[2017-02-25] MEDS: Miralax 17gm pkt ORAL SCH (08:57)
[2017-02-25] MEDS: PRISTIQ 50 MG ORAL SCH (08:58)
[2017-02-25] MEDS: Docusate 100mg cap ORAL SCH ×2 (08:58→17:50)
[2017-02-25] MEDS: Heparin 5000 units/ml inj SUBQ SCH ×2 (09:12→21:59)
[2017-02-25] MEDS: DiphenhydrAMINE 50mg/ml Inj IVP PRN ×2 (09:14→21:57)
[2017-02-25 12:00] VITALS: BP 137/67
[2017-02-25] MEDS: Tums 500mg ORAL PRN ×2 (12:19→16:43)
--- NOTE | 2017-02-25 14:36 | General Progress Note ---
Assessment/Plan Problem List: (1) Acute blood loss anemia ICD Codes: D62 - Acute posthemorrhagic anemia SNOMED: 763628192 (2) Postoperative urinary retention ICD Codes: N99.89 - Other postprocedural complications and disorders of genitourinary system; R33.8 - Other retention of urine SNOMED: 309707750 (3) Abscess ICD Codes: L02.91 - Cutaneous abscess, unspecified SNOMED: 142470381 (4) Hidradenitis suppurativa ICD Codes: L73.2 - Hidradenitis suppurativa SNOMED: 49173526 (5) depression/anxiety Status: stable Assessment/Plan Appreciate surgery rec's Cont IV vanco + pre-med w/ benadryl F/u cultures s/p Excision of infected tissue and reconstruction on 02/20/17 s/p Excision of infected tissue and reconstruction on 02/23/17 TRANG drain per surgery--R axillary TRANG drain removed on 02/24/17 Christensen placed on 02/21/17 given urinary retention. Will plan for removal of christensen tomorrow for voiding trial F/u urine culture Post operative recommendations include: - encourage mobilization/ambulation - encourage incentive spirometry to optimize pulmonary hygiene - DVT/GI prophylaxis as appropriate - ctm CBC and hemodynamics - ctm electrolytes, adjust/replete prn - pain control, supportive care, bowel regimen - itching control w/ benadryl PRN FULL CODE 31min of extra time was spent on this case in addition to normal encounter time for care/coordination and counseling. D/w pt/family, RN, SW/CM, surgery regarding mgmt and dispo. D/w surgery re postop mgmt, removing christensen for voiding trial Subjective Date patient seen: Feb 25, 2017 Time patient seen: 15:00 ROS Limited/Unobtainable: No Constitutional: Reports: no symptoms HEENT: Reports: no symptoms Cardiovascular: Reports: no symptoms Respiratory: Reports: no symptoms Gastrointestinal/Abdominal: Reports: no symptoms Genitourinary: Reports: no symptoms Neurologic/Psychiatric: Reports: no symptoms Endocrine: Reports: no symptoms Hematologic/Lymphatic: Reports: no symptoms Allergies: Coded Allergies: CEFDINIR (Verified Allergy, Unknown, 07/31/16) CEPHALEXIN (Verified Allergy, Unknown, 07/31/16) CIPROFLOXACIN (Verified Allergy, Unknown, 07/31/16) DOXYCYCLINE (Unverified Allergy, Unknown, 07/31/16) ERYTHROMYCIN BASE (Unverified Allergy, Unknown, 07/31/16) LEVOFLOXACIN (Verified Allergy, Unknown, 07/31/16) MORPHINE (Verified Allergy, Unknown, 07/31/16) MUPIROCIN (Verified Allergy, Unknown, 07/31/16) PENICILLINS (Unverified Allergy, Unknown, 07/31/16) SULFA (SULFONAMIDE ANTIBIOTICS) (Unverified Allergy, Unknown, 07/31/16) All Systems: reviewed and negative except above Subjective No acute o/n events s/p Excision of infected tissue and reconstruction POD#5 s/p Excision of infected tissue and reconstruction POD#2 R axillary drain removed on 02/24/17 Pt doing well. Pain controlled. Denies f/c, n/v, d/c, chest pain, SOB. +Gas, no BM yet. Slept better Objective Last 24 Hour Vital Signs Date Time Temp Pulse Resp B/P (MAP) Pulse Ox O2 Delivery O2 Flow Rate FiO2 02/25/17 12:00 19 02/25/17 12:00 99.3 77 19 137/67 95 02/25/17 08:00 19 02/25/17 08:00 99.1 90 19 144/83 97 02/25/17 04:28 98.8 79 19 115/70 91 02/25/17 04:00 18 02/25/17 00:00 98.5 75 18 104/67 94 02/25/17 00:00 18 02/24/17 20:14 98.6 87 19 112/69 93 02/24/17 20:00 18 02/24/17 16:00 98.8 76 19 122/57 99 02/24/17 16:00 18 Intake and Output 02/24/17 02/25/17 19:00 07:00 Intake Total 850 ml 1330.0 ml Output Total 250 ml 1458 ml Balance 600 ml -128.0 ml Intake Oral 850 ml 480 ml IV Total 850.0 ml Output Urine Total 250 ml 1450 ml Drainage Total 8 ml # Voids 1 Height (Feet): 5 Height (Inches): 7.00 Weight (Pounds): 228 Objective General: alert, cooperative, no distress, appears stated age Head: normocephalic, without obvious abnormality, atraumatic Eyes: conjunctivae/corneas clear. PERRL, EOM's intact Throat: lips, mucosa, and tongue normal. MMM Neck: supple, symmetrical, trachea midline, and no JVD Lungs: clear to auscultation bilaterally Heart: regular rate and rhythm, S1, S2 normal, no murmur, click, rub or gallop Abdomen: soft, non-tender, non-distended, bowel sounds normal; no masses or organomegaly Extremities: extremities normal, atraumatic, no cyanosis or edema Pulses: 2+ and symmetric Skin: skin color, texture, turgor normal; dressing c/d/i Neurologic: grossly normal, no focal deficits Shorty Lemon M.D. Feb 25, 2017 14:35
[2017-02-25] MEDS: PCA HYDROmorphone 1mg/ml 30 ML IV PRN (14:52)
[2017-02-25 16:00] VITALS: BP 136/50
[2017-02-25] MEDS ORDERED: ZOFRAN ODT4 MG ORAL (16:09)
[2017-02-25] MEDS ORDERED: CLINDAMYCIN HC300 MG ORAL ×2 (16:09→16:14)
[2017-02-25] MEDS ORDERED: COLACE100 MG ORAL (16:09)
[2017-02-25] MEDS ORDERED: AMBIEN5 MG ORAL (16:09)
[2017-02-25] MEDS ORDERED: BENADRYL25 MG ORAL (16:15)
[2017-02-25] MEDS ORDERED: D5 1/2NS 1000ml IV ONE (16:19)
[2017-02-25] MEDS ORDERED: D5NS 1000ml IV ONE (16:19)
[2017-02-25] MEDS ORDERED: Lactulose 20gm/30ml UDC ORAL PRN (18:30)
[2017-02-25 20:00] VITALS: BP 139/61
[2017-02-25] MEDS: Dyna-Hex 2% Top Sol 2oz TOPIC SCH (21:56)
[2017-02-25] MEDS: Sennosides 8.6mg ORAL SCH (21:57)
[2017-02-25] MEDS: Zolpidem 5mg tab ORAL PRN (21:57)
[2017-02-26] VITALS: BP 114/64
[2017-02-26 04:00] VITALS: BP 112/68
[2017-02-26] MEDS: PCA shift volume MISC SCH ×2 (07:10→19:19)
[2017-02-26 07:49] LABS: BASOPHILS % (AUTO) 0.7 % (0.0-2.0); EOSINOPHILS % (AUTO) 5.8 % (0.0-3.0); HEMATOCRIT 32.5 % (37.0-47.0); HEMOGLOBIN 10.8 G/DL (12.0-16.0); LYMPHOCYTES % (AUTO) 29.3 % (20.0-45.0); MEAN CORPUSCULAR VOLUME 88 FL (80-99); MONOCYTES % (AUTO) 6.5 % (1.0-10.0); NEUTROPHILS % (AUTO) 57.7 % (45.0-75.0); PLATELET COUNT 244 K/UL (150-450); RED CELL DISTRIBUTION WIDTH 12.2 % (11.6-14.8); WHITE BLOOD COUNT 8.2 K/UL (4.8-10.8)
[2017-02-26 08:00] VITALS: BP 113/66
[2017-02-26 08:13] LABS: ANION GAP 5 mmol/L (5-15); BLOOD UREA NITROGEN 8 mg/dL (7-18); CALCIUM 8.6 MG/DL (8.5-10.1); CARBON DIOXIDE 31 MMOL/L (21-32); CHLORIDE 102 MMOL/L (98-107); CREATININE 1.1 MG/DL (0.55-1.30); POTASSIUM 3.9 MMOL/L (3.5-5.1); SODIUM 138 MMOL/L (136-145)
[2017-02-26] MEDS: DiphenhydrAMINE 50mg/ml Inj IVP PRN ×2 (09:17→20:53)
[2017-02-26] MEDS: Vancomycin 750mg/NS 250ml 250 ML IVPB SCH ×2 (09:18→20:53)
[2017-02-26] MEDS: Docusate 100mg cap ORAL SCH ×2 (09:18→17:35)
[2017-02-26] MEDS: Miralax 17gm pkt ORAL SCH (09:18)
[2017-02-26] MEDS: PRISTIQ 50 MG ORAL SCH (09:18)
[2017-02-26] MEDS: Heparin 5000 units/ml inj SUBQ SCH ×2 (09:25→21:00)
--- NOTE | 2017-02-26 11:01 | General Progress Note ---
Assessment/Plan Problem List: (1) Acute blood loss anemia ICD Codes: D62 - Acute posthemorrhagic anemia SNOMED: 182185318 (2) Postoperative urinary retention ICD Codes: N99.89 - Other postprocedural complications and disorders of genitourinary system; R33.8 - Other retention of urine SNOMED: 449063836 (3) Abscess ICD Codes: L02.91 - Cutaneous abscess, unspecified SNOMED: 724978570 (4) Hidradenitis suppurativa ICD Codes: L73.2 - Hidradenitis suppurativa SNOMED: 14802571 (5) depression/anxiety Status: stable Assessment/Plan Appreciate surgery rec's Cont IV vanco + pre-med w/ benadryl F/u cultures s/p Excision of infected tissue and reconstruction on 02/20/17 s/p Excision of infected tissue and reconstruction on 02/23/17 TRANG drain per surgery--R axillary TRANG drain removed on 02/24/17 Christensen placed on 02/21/17 given urinary retention. Remove christensen today F/u urine culture Post operative recommendations include: - encourage mobilization/ambulation - encourage incentive spirometry to optimize pulmonary hygiene - DVT/GI prophylaxis as appropriate - ctm CBC and hemodynamics - ctm electrolytes, adjust/replete prn - pain control, supportive care, bowel regimen - itching control w/ benadryl PRN Home health ordered for wound care DC planning for likely home Mon FULL CODE 31min of extra time was spent on this case in addition to normal encounter time for care/coordination and counseling. D/w pt/family, RN, SW/CM, surgery regarding mgmt and dispo. D/w surgery re postop mgmt, removing christensen for voiding trial Subjective Date patient seen: Feb 26, 2017 Time patient seen: 11:01 ROS Limited/Unobtainable: No Allergies: Coded Allergies: CEFDINIR (Verified Allergy, Unknown, 07/31/16) CEPHALEXIN (Verified Allergy, Unknown, 07/31/16) CIPROFLOXACIN (Verified Allergy, Unknown, 07/31/16) DOXYCYCLINE (Unverified Allergy, Unknown, 07/31/16) ERYTHROMYCIN BASE (Unverified Allergy, Unknown, 07/31/16) LEVOFLOXACIN (Verified Allergy, Unknown, 07/31/16) MORPHINE (Verified Allergy, Unknown, 07/31/16) MUPIROCIN (Verified Allergy, Unknown, 07/31/16) PENICILLINS (Unverified Allergy, Unknown, 07/31/16) SULFA (SULFONAMIDE ANTIBIOTICS) (Unverified Allergy, Unknown, 07/31/16) Subjective No acute o/n events s/p Excision of infected tissue and reconstruction POD#6 s/p Excision of infected tissue and reconstruction POD#3 R axillary drain removed on 02/24/17 Pt doing well. Pain controlled. Denies f/c, n/v, d/c, chest pain, SOB. +Gas, + BM Slept better Objective Last 24 Hour Vital Signs Date Time Temp Pulse Resp B/P (MAP) Pulse Ox O2 Delivery O2 Flow Rate FiO2 02/26/17 08:00 17 02/26/17 08:00 98.5 89 20 113/66 98 02/26/17 04:00 18 02/26/17 04:00 99.0 72 18 112/68 93 02/26/17 00:00 18 02/26/17 00:00 98.2 77 18 114/64 90 02/25/17 20:00 18 02/25/17 20:00 98.5 76 18 139/61 94 02/25/17 16:00 19 02/25/17 16:00 98.6 74 19 136/50 98 02/25/17 12:00 19 02/25/17 12:00 99.3 77 19 137/67 95 Intake and Output 02/25/17 02/26/17 19:00 07:00 Intake Total 1215 ml 490.0 ml Output Total 1700 ml 1455 ml Balance -485 ml -965.0 ml Intake Oral 840 ml 240 ml IV Total 375 ml 250.0 ml Output Urine Total 1700 ml 1450 ml Drainage Total 5 ml # Voids 2 Laboratory Tests 02/26/17 04:45: White Blood Count 8.2, Red Blood Count 3.70L, Hemoglobin 10.8L, Hematocrit 32.5L , Mean Corpuscular Volume 88, Mean Corpuscular Hemoglobin 29.3, Mean Corpuscular Hemoglobin Concent 33.4, Red Cell Distribution Width 12.2, Platelet Count 244, Mean Platelet Volume 5.9L, Neutrophils (%) (Auto) 57.7, Lymphocytes ( %) (Auto) 29.3, Monocytes (%) (Auto) 6.5, Eosinophils (%) (Auto) 5.8H, Basophils (%) (Auto) 0.7, Sodium Level 138, Potassium Level 3.9, Chloride Level 102, Carbon Dioxide Level 31, Anion Gap 5, Blood Urea Nitrogen 8, Creatinine 1.1 , Estimat Glomerular Filtration Rate 55.3, Glucose Level 83, Calcium Level 8.6 Height (Feet): 5 Height (Inches): 7.00 Weight (Pounds): 228 Objective General: alert, cooperative, no distress, appears stated age Head: normocephalic, without obvious abnormality, atraumatic Eyes: conjunctivae/corneas clear. PERRL, EOM's intact Throat: lips, mucosa, and tongue normal. MMM Neck: supple, symmetrical, trachea midline, and no JVD Lungs: clear to auscultation bilaterally Heart: regular rate and rhythm, S1, S2 normal, no murmur, click, rub or gallop Abdomen: soft, non-tender, non-distended, bowel sounds normal; no masses or organomegaly Extremities: extremities normal, atraumatic, no cyanosis or edema Pulses: 2+ and symmetric Skin: skin color, texture, turgor normal; dressing c/d/i Neurologic: grossly normal, no focal deficits Shorty Lemon M.D. Feb 26, 2017 11:01
[2017-02-26 11:58] VITALS: BP 118/80
--- NOTE | 2017-02-26 14:07 | General Progress Note ---
Progress Note Progress Note Pt seen and examined. POD # 3 and doing well. Wounds are clean and there is no evidence of infection. Will DC TRANG over the weekend. Continue ABX and pain control. Franco Alvarado M.D. FRANCO ALVARADO Feb 26, 2017 14:07
[2017-02-26 16:00] VITALS: BP 116/68
[2017-02-26] MEDS: PCA HYDROmorphone 1mg/ml 30 ML IV PRN (17:27)
[2017-02-26] MEDS: Tums 500mg ORAL PRN (17:35)
[2017-02-26] MEDS: Dyna-Hex 2% Top Sol 2oz TOPIC SCH (20:00)
[2017-02-26] MEDS: Sennosides 8.6mg ORAL SCH (20:58)
[2017-02-26] MEDS: Zolpidem 5mg tab ORAL PRN (22:34)
[2017-02-27] VITALS (7 sets, daily range): BP systolic 112–160; BP diastolic 50–84
[2017-02-27] MEDS ORDERED: Rate Change PCA 1 Each MISC PRN (08:00)
[2017-02-27] MEDS ORDERED: PCA HYDROmorphone 1mg/ml 30 ML IV PRN (08:00)
[2017-02-27] MEDS: Miralax 17gm pkt ORAL SCH (09:55)
[2017-02-27] MEDS: DiphenhydrAMINE 50mg/ml Inj IVP PRN ×2 (09:56→22:20)
[2017-02-27] MEDS: Vancomycin 750mg/NS 250ml 250 ML IVPB SCH ×2 (09:56→22:20)
[2017-02-27] MEDS: PRISTIQ 50 MG ORAL SCH (09:56)
[2017-02-27] MEDS: Heparin 5000 units/ml inj SUBQ SCH ×2 (09:57→22:22)
[2017-02-27] MEDS: Docusate 100mg cap ORAL SCH ×2 (09:58→19:05)
--- NOTE | 2017-02-27 10:44 | General Progress Note ---
Progress Note Progress Note Pt seen and examined. POD# 4. R UE swollen. Will order KAREN to rule out DVT. FRANCO Duenas MD Feb 27, 2017 10:44
--- NOTE | 2017-02-27 18:08 | General Progress Note ---
Assessment/Plan Problem List: (1) Acute blood loss anemia ICD Codes: D62 - Acute posthemorrhagic anemia SNOMED: 670425892 (2) Postoperative urinary retention ICD Codes: N99.89 - Other postprocedural complications and disorders of genitourinary system; R33.8 - Other retention of urine SNOMED: 382414803 (3) Abscess ICD Codes: L02.91 - Cutaneous abscess, unspecified SNOMED: 065540736 (4) Hidradenitis suppurativa ICD Codes: L73.2 - Hidradenitis suppurativa SNOMED: 09734526 (5) depression/anxiety (6) Pain and swelling of right upper extremity ICD Codes: M79.601 - Pain in right arm; M79.89 - Other specified soft tissue disorders SNOMED: 915081117, 196684028 Status: stable Assessment/Plan Appreciate surgery rec's Cont IV vanco + pre-med w/ benadryl F/u cultures s/p Excision of infected tissue and reconstruction on 02/20/17 s/p Excision of infected tissue and reconstruction on 02/23/17 TRANG drain per surgery--R axillary TRANG drain removed on 02/24/17 Christensen placed on 02/21/17 given urinary retention and now removed on 02/26/17 --> voiding on own Check RUE venous duplex given RUE swelling and pain Post operative recommendations include: - encourage mobilization/ambulation - encourage incentive spirometry to optimize pulmonary hygiene - DVT/GI prophylaxis as appropriate - ctm CBC and hemodynamics - ctm electrolytes, adjust/replete prn - pain control, supportive care, bowel regimen - itching control w/ benadryl PRN Home health ordered for wound care DC planning for likely home Mon. Meds done FULL CODE 31min of extra time was spent on this case in addition to normal encounter time for care/coordination and counseling. D/w pt/family, RN, SW/CM, surgery regarding mgmt and dispo. D/w surgery re postop mgmt, removing christensen for voiding trial Subjective Date patient seen: Feb 27, 2017 Time patient seen: 15:00 ROS Limited/Unobtainable: No Constitutional: Reports: no symptoms HEENT: Reports: no symptoms Cardiovascular: Reports: no symptoms Respiratory: Reports: no symptoms Gastrointestinal/Abdominal: Reports: no symptoms Genitourinary: Reports: no symptoms Neurologic/Psychiatric: Reports: no symptoms Endocrine: Reports: no symptoms Allergies: Coded Allergies: CEFDINIR (Verified Allergy, Unknown, 07/31/16) CEPHALEXIN (Verified Allergy, Unknown, 07/31/16) CIPROFLOXACIN (Verified Allergy, Unknown, 07/31/16) DOXYCYCLINE (Unverified Allergy, Unknown, 07/31/16) ERYTHROMYCIN BASE (Unverified Allergy, Unknown, 07/31/16) LEVOFLOXACIN (Verified Allergy, Unknown, 07/31/16) MORPHINE (Verified Allergy, Unknown, 07/31/16) MUPIROCIN (Verified Allergy, Unknown, 07/31/16) PENICILLINS (Unverified Allergy, Unknown, 07/31/16) SULFA (SULFONAMIDE ANTIBIOTICS) (Unverified Allergy, Unknown, 07/31/16) All Systems: reviewed and negative except above Subjective No acute o/n events s/p Excision of infected tissue and reconstruction POD#7 s/p Excision of infected tissue and reconstruction POD#4 R axillary drain removed on 02/24/17 Pt doing well. Pain controlled. Denies f/c, n/v, d/c, chest pain, SOB. +Gas, + BM RUE more swollen and painful since last night Objective Last 24 Hour Vital Signs Date Time Temp Pulse Resp B/P (MAP) Pulse Ox O2 Delivery O2 Flow Rate FiO2 02/27/17 16:24 98.9 86 20 160/84 94 02/27/17 16:00 18 02/27/17 12:00 18 02/27/17 11:46 98.8 76 20 125/69 95 02/27/17 08:41 98.9 85 20 113/57 96 02/27/17 08:00 18 02/27/17 04:00 98.6 73 16 115/50 97 Nasal Cannula 2.0 02/27/17 04:00 17 02/27/17 00:20 18 02/27/17 00:00 98.3 76 17 112/60 93 Room Air 02/26/17 20:30 17 Intake and Output 02/26/17 02/27/17 19:00 07:00 Intake Total 720 ml Output Total 800 ml 25 ml Balance -80 ml -25 ml Intake Oral 720 ml Output Urine Total 800 ml Drainage Total 25 ml Laboratory Tests 02/27/17 08:15: Vancomycin Level Trough 11.7 Height (Feet): 5 Height (Inches): 7.00 Weight (Pounds): 228 Objective General: alert, cooperative, no distress, appears stated age Head: normocephalic, without obvious abnormality, atraumatic Eyes: conjunctivae/corneas clear. PERRL, EOM's intact Throat: lips, mucosa, and tongue normal. MMM Neck: supple, symmetrical, trachea midline, and no JVD Lungs: clear to auscultation bilaterally Heart: regular rate and rhythm, S1, S2 normal, no murmur, click, rub or gallop Abdomen: soft, non-tender, non-distended, bowel sounds normal; no masses or organomegaly Extremities: extremities normal, atraumatic, no cyanosis or edema Pulses: 2+ and symmetric Skin: skin color, texture, turgor normal; dressing c/d/i Neurologic: grossly normal, no focal deficits Shorty Lemon M.D. Feb 27, 2017 18:08
[2017-02-27] MEDS: PCA shift volume MISC SCH (19:00)
[2017-02-27] MEDS: Sennosides 8.6mg ORAL SCH (22:20)
[2017-02-27] MEDS: Dyna-Hex 2% Top Sol 2oz TOPIC SCH (22:24)
[2017-02-28] VITALS: BP 151/78
[2017-02-28 04:00] VITALS: BP 98/52
[2017-02-28] MEDS: PCA shift volume MISC SCH (07:05)
[2017-02-28 08:00] VITALS: BP 115/62
[2017-02-28] MEDS: Docusate 100mg cap ORAL SCH ×2 (08:35→17:30)
[2017-02-28] MEDS: Miralax 17gm pkt ORAL SCH (08:35)
[2017-02-28] MEDS: PRISTIQ 50 MG ORAL SCH (08:35)
[2017-02-28] MEDS: Vancomycin 750mg/NS 250ml 250 ML IVPB SCH (08:35)
[2017-02-28] MEDS: DiphenhydrAMINE 50mg/ml Inj IVP PRN (08:36)
[2017-02-28] MEDS: Heparin 5000 units/ml inj SUBQ SCH ×2 (08:50→20:02)
[2017-02-28 12:00] VITALS: BP 122/68
--- NOTE | 2017-02-28 12:33 | Internal Med Progress Note ---
Subjective Physician Name JavonJilmei Attending Physician Ida Pang Current Medications Medications (Trade) Dose Ordered Sig/[place] Route PRN Reason Start Time Stop Time Status Last Admin Dose Admin Acetaminophen (Tylenol) 650 mg Q4H PRN ORAL Mild Pain 1-3/FEVER 02/20/17 09:15 03/22/17 09:14 Al Hydroxide/Mg Hydroxide (Mylanta II) 30 ml Q6H PRN ORAL dyspepsia 02/19/17 14:30 03/21/17 14:29 02/23/17 18:53 Calcium Carbonate (Tums) 1,000 mg Q4H PRN ORAL reflux, indigestion 02/24/17 18:30 03/26/17 18:29 02/26/17 17:35 Chlorhexidine Gluconate (Bri-Hex 2%) 1 applic DAILY@2000 TOPIC 02/19/17 20:00 03/21/17 19:59 02/27/17 22:24 Dextrose (Dextrose 50%) STAT PRN IV Hypoglycemia 02/19/17 14:30 03/21/17 14:29 Diphenhydramine HCl (Benadryl) 25 mg Q4H PRN IVP Itching 02/20/17 16:00 Diphenhydramine HCl (Benadryl) 25 mg Q4H PRN ORAL Itching/Pruritis 02/23/17 11:00 03/22/17 15:59 Diphenhydramine HCl (Benadryl) 100 mg Q12HR PRN IVP prior to vanco infusion 02/25/17 08:45 03/27/17 08:44 02/28/17 08:36 Docusate Sodium (Colace) 100 mg TWICE A DAY ORAL 02/20/17 18:00 03/22/17 17:59 02/28/17 08:35 Heparin Sodium (Porcine) (Heparin 5000 units/ml) 5,000 units EVERY 12 HOURS SUBQ 02/23/17 21:00 03/25/17 20:59 02/28/17 08:50 Hydromorphone HCl 30 ml @ 0 mls/hr Q24H PRN IV For Pain 02/27/17 08:00 03/01/17 07:59 02/27/17 19:06 Hydromorphone HCl (Dilaudid) 2 mg Q3H PRN SUBQ Severe Pain (Pain Scale 7-10) 02/27/17 08:00 03/01/17 07:59 02/27/17 22:21 Hydromorphone HCl (Dilaudid) 2 mg Q4H PRN IVP Moderate Pain (Pain Scale 4-6) 02/27/17 08:00 03/01/17 07:59 02/27/17 19:05 Lactulose (Cephulac) 20 gm Q8H PRN ORAL Constipation 02/25/17 18:30 03/27/17 18:29 Magnesium Hydroxide (Mom) 30 ml HSPRN PRN ORAL Constipation 02/19/17 14:30 03/21/17 14:29 Miscellaneous Medication (BARREL BUILDER Rate Change) 1 ea DAILY PRN MISC rate change 02/27/17 08:00 03/01/17 07:59 Miscellaneous Medication (BARREL BUILDER shift volume) 1 ea Q12HR@0700,1900 MISC 02/27/17 19:00 03/01/17 18:59 02/28/17 07:05 Ondansetron HCl (Zofran) 4 mg Q6H PRN IVP Nausea & Vomiting 02/23/17 09:45 03/25/17 09:44 Patient Own Medication (Patient's Own Med) 1 ea DAILY ORAL 02/19/17 17:00 03/21/17 16:59 02/28/17 08:35 Polyethylene Glycol (Miralax) 17 gm DAILY ORAL 02/25/17 09:00 03/25/17 20:59 02/28/17 08:35 Sennosides (Senokot) 2 tab QHS ORAL 02/23/17 21:00 03/25/17 20:59 02/27/17 22:20 Vancomycin HCl (Vanco rx to dose) 1 ea DAILY PRN MISC Per rx protocol 02/19/17 15:15 03/21/17 15:14 Vancomycin/Sodium Chloride 250 ml @ 62.5 mls/hr Q12HR IVPB 02/25/17 09:00 03/02/17 08:59 02/28/17 08:35 Zolpidem Tartrate (Ambien) 5 mg DAILYPRN PRN ORAL Insomnia 02/23/17 09:45 03/02/17 09:44 02/26/17 22:34 Allergies: Coded Allergies: CEFDINIR (Verified Allergy, Unknown, 07/31/16) CEPHALEXIN (Verified Allergy, Unknown, 07/31/16) CIPROFLOXACIN (Verified Allergy, Unknown, 07/31/16) DOXYCYCLINE (Unverified Allergy, Unknown, 07/31/16) ERYTHROMYCIN BASE (Unverified Allergy, Unknown, 07/31/16) LEVOFLOXACIN (Verified Allergy, Unknown, 07/31/16) MORPHINE (Verified Allergy, Unknown, 07/31/16) MUPIROCIN (Verified Allergy, Unknown, 07/31/16) PENICILLINS (Unverified Allergy, Unknown, 07/31/16) SULFA (SULFONAMIDE ANTIBIOTICS) (Unverified Allergy, Unknown, 07/31/16) Objective Last Vital Signs Date Time Temp Pulse Resp B/P (MAP) Pulse Ox O2 Delivery O2 Flow Rate FiO2 02/28/17 08:00 18 02/28/17 08:00 98.8 87 115/62 97 Room Air 02/28/17 04:00 2.0 Intake and Output 02/27/17 02/28/17 19:00 07:00 Intake Total 940 ml 240 ml Balance 940 ml 240 ml Intake Oral 940 ml 240 ml # Voids 3 Assessment/Plan Assessment/Plan Assessment/Plan Assessment/Plan Problem List: (1) Acute blood loss anemia ICD Codes: D62 - Acute posthemorrhagic anemia SNOMED: 273112163 (2) Postoperative urinary retention ICD Codes: N99.89 - Other postprocedural complications and disorders of genitourinary system; R33.8 - Other retention of urine SNOMED: 799741264 (3) Abscess ICD Codes: L02.91 - Cutaneous abscess, unspecified SNOMED: 173636326 (4) Hidradenitis suppurativa ICD Codes: L73.2 - Hidradenitis suppurativa SNOMED: 10435892 (5) depression/anxiety (6) Pain and swelling of right upper extremity ICD Codes: M79.601 - Pain in right arm; M79.89 - Other specified soft tissue disorders SNOMED: 868502071, 168275256 Status: stable Assessment/Plan Appreciate surgery rec's Cont IV vanco + pre-med w/ benadryl F/u cultures s/p Excision of infected tissue and reconstruction on 02/20/17 s/p Excision of infected tissue and reconstruction on 02/23/17 TRANG drain per surgery--R axillary TRANG drain removed on 02/24/17 Christensen placed on 02/21/17 given urinary retention and now removed on 02/26/17 --> voiding on own Post operative recommendations include: - encourage mobilization/ambulation - encourage incentive spirometry to optimize pulmonary hygiene - DVT/GI prophylaxis as appropriate - ctm CBC and hemodynamics - ctm electrolytes, adjust/replete prn - pain control, supportive care, bowel regimen - itching control w/ benadryl PRN Home health ordered for wound care DC planning for likely home Mon. Meds done FULL CODE 31min of extra time was spent on this case in addition to normal encounter time for care/coordination and counseling. D/w pt/family, RN, SW/CM, surgery regarding mgmt and dispo. D/w surgery re postop mgmt, removing christensen for voiding trial Subjective Subjective Date patient seen: Feb 27, 2017 Time patient seen: 15:00 ROS Limited/Unobtainable: No Constitutional: Reports: no symptoms HEENT: Reports: no symptoms Cardiovascular: Reports: no symptoms Respiratory: Reports: no symptoms Gastrointestinal/Abdominal: Reports: no symptoms Genitourinary: Reports: no symptoms Neurologic/Psychiatric: Reports: no symptoms Endocrine: Reports: no symptoms Allergies: Coded Allergies: CEFDINIR (Verified Allergy, Unknown, 07/31/16) CEPHALEXIN (Verified Allergy, Unknown, 07/31/16) CIPROFLOXACIN (Verified Allergy, Unknown, 07/31/16) DOXYCYCLINE (Unverified Allergy, Unknown, 07/31/16) ERYTHROMYCIN BASE (Unverified Allergy, Unknown, 07/31/16) LEVOFLOXACIN (Verified Allergy, Unknown, 07/31/16) MORPHINE (Verified Allergy, Unknown, 07/31/16) MUPIROCIN (Verified Allergy, Unknown, 07/31/16) PENICILLINS (Unverified Allergy, Unknown, 07/31/16) SULFA (SULFONAMIDE ANTIBIOTICS) (Unverified Allergy, Unknown, 07/31/16) All Systems: reviewed and negative except above Subjective No acute o/n events s/p Excision of infected tissue and reconstruction POD#7 s/p Excision of infected tissue and reconstruction POD#4 R axillary drain removed on 02/24/17 Pt doing well. Pain controlled. Denies f/c, n/v, d/c, chest pain, SOB. +Gas, + BM RUE more swollen and painful since last night Objective Objective Last 24 Hour Vital Signs Date Time Temp Pulse Resp B/P (MAP) Pulse Ox O2 Delivery O2 Flow Rate FiO2 02/27/17 16:24 98.9 86 20 160/84 94 02/27/17 16:00 18 02/27/17 12:00 18 02/27/17 11:46 98.8 76 20 125/69 95 02/27/17 08:41 98.9 85 20 113/57 96 02/27/17 08:00 18 02/27/17 04:00 98.6 73 16 115/50 97 Nasal Cannula 2.0 02/27/17 04:00 17 02/27/17 00:20 18 02/27/17 00:00 98.3 76 17 112/60 93 Room Air 02/26/17 20:30 17 Intake and Output 02/26/17 02/27/17 19:00 07:00 Intake Total 720 ml Output Total 800 ml 25 ml Balance -80 ml -25 ml Intake Oral 720 ml Output Urine Total 800 ml Drainage Total 25 ml Laboratory Tests 02/27/17 08:15: Vancomycin Level Trough 11.7 Height (Feet): 5 Height (Inches): 7.00 Weight (Pounds): 228 Objective General: alert, cooperative, no distress, appears stated age Head: normocephalic, without obvious abnormality, atraumatic Eyes: conjunctivae/corneas clear. PERRL, EOM's intact Throat: lips, mucosa, and tongue normal. MMM Neck: supple, symmetrical, trachea midline, and no JVD Lungs: clear to auscultation bilaterally Heart: regular rate and rhythm, S1, S2 normal, no murmur, click, rub or gallop Abdomen: soft, non-tender, non-distended, bowel sounds normal; no masses or organomegaly Extremities: extremities normal, atraumatic, no cyanosis or edema Pulses: 2+ and symmetric Skin: skin color, texture, turgor normal; dressing c/d/i Neurologic: grossly normal, no focal deficits Bryant Alejandro M.D. Feb 28, 2017 12:33
[2017-02-28] MEDS ORDERED: Hydromorphone 0.5mg/0.5ml inj SUBQ PRN (13:45)
[2017-02-28] MEDS: HYDROcodone/Acetamin 10/325 tab ORAL PRN ×2 (13:53→19:57)
[2017-02-28 16:00] VITALS: BP_SYST 118; BP_SYST 90; BP_DIAS 43; BP_DIAS 69
--- NOTE | 2017-02-28 16:07 | Cardiology Report ---
APPROVED REPORT EKG Measurement Heart [id number] ME [id number] Poor data quality, interpretation may be adversely affected Normal sinus rhythm Normal ECG
[2017-02-28] MEDS: Tums 500mg ORAL PRN (17:35)
[2017-02-28] MEDS ORDERED: Tubing IV Secondary IV ONE (18:49)
[2017-02-28] MEDS: Sennosides 8.6mg ORAL SCH (19:57)
[2017-02-28 20:00] VITALS: BP 116/59
[2017-02-28] MEDS: Zolpidem 5mg tab ORAL PRN (21:04)
[2017-03-01] VITALS: BP 120/62
[2017-03-01 06:30] VITALS: BP 147/95
[2017-03-01] MEDS: HYDROcodone/Acetamin 10/325 tab ORAL PRN ×4 (07:29→21:20)
[2017-03-01 08:00] VITALS: BP 147/95
[2017-03-01] MEDS: Heparin 5000 units/ml inj SUBQ SCH ×2 (08:01→20:09)
[2017-03-01] MEDS: PRISTIQ 50 MG ORAL SCH (08:31)
[2017-03-01] MEDS: Miralax 17gm pkt ORAL SCH (08:31)
[2017-03-01] MEDS: Docusate 100mg cap ORAL SCH ×2 (08:31→16:49)
[2017-03-01 16:00] VITALS: BP 134/73
--- NOTE | 2017-03-01 19:03 | Internal Med Progress Note ---
Subjective Physician Name JavonJilmei Attending Physician Ida Pang Current Medications Medications (Trade) Dose Ordered Sig/[place] Route PRN Reason Start Time Stop Time Status Last Admin Dose Admin Acetaminophen (Tylenol) 650 mg Q4H PRN ORAL Mild Pain 1-3/FEVER 02/20/17 09:15 03/22/17 09:14 Acetaminophen/ Hydrocodone Bitart ([place] 10/325) 1 ea Q4H PRN ORAL For Pain 02/28/17 14:00 03/07/17 13:59 03/01/17 16:50 Al Hydroxide/Mg Hydroxide (Mylanta II) 30 ml Q6H PRN ORAL dyspepsia 02/19/17 14:30 03/21/17 14:29 02/23/17 18:53 Calcium Carbonate (Tums) 1,000 mg Q4H PRN ORAL reflux, indigestion 02/24/17 18:30 03/26/17 18:29 02/28/17 17:35 Dextrose (Dextrose 50%) STAT PRN IV Hypoglycemia 02/19/17 14:30 03/21/17 14:29 Diphenhydramine HCl (Benadryl) 50 mg Q6H PRN ORAL Itching 02/28/17 13:45 03/30/17 13:44 Docusate Sodium (Colace) 100 mg TWICE A DAY ORAL 02/20/17 18:00 03/22/17 17:59 03/01/17 16:49 Heparin Sodium (Porcine) (Heparin 5000 units/ml) 5,000 units EVERY 12 HOURS SUBQ 02/23/17 21:00 03/25/17 20:59 02/28/17 08:50 Hydromorphone HCl (Dilaudid) 1 mg Q4H PRN SUBQ Moderate Breakthru Pain (5-7) 03/01/17 14:45 03/08/17 14:44 03/01/17 14:54 Lactulose (Cephulac) 20 gm Q8H PRN ORAL Constipation 02/25/17 18:30 03/27/17 18:29 Magnesium Hydroxide (Mom) 30 ml HSPRN PRN ORAL Constipation 02/19/17 14:30 03/21/17 14:29 Ondansetron HCl (Zofran) 4 mg Q6H PRN IVP Nausea & Vomiting 02/23/17 09:45 03/25/17 09:44 Patient Own Medication (Patient's Own Med) 1 ea DAILY ORAL 02/19/17 17:00 03/21/17 16:59 03/01/17 08:31 Polyethylene Glycol (Miralax) 17 gm DAILY ORAL 02/25/17 09:00 03/25/17 20:59 03/01/17 08:31 Sennosides (Senokot) 2 tab QHS ORAL 02/23/17 21:00 03/25/17 20:59 02/28/17 19:57 Zolpidem Tartrate (Ambien) 5 mg DAILYPRN PRN ORAL Insomnia 02/23/17 09:45 03/02/17 09:44 02/28/17 21:04 Allergies: Coded Allergies: CEFDINIR (Verified Allergy, Unknown, 07/31/16) CEPHALEXIN (Verified Allergy, Unknown, 07/31/16) CIPROFLOXACIN (Verified Allergy, Unknown, 07/31/16) DOXYCYCLINE (Unverified Allergy, Unknown, 07/31/16) ERYTHROMYCIN BASE (Unverified Allergy, Unknown, 07/31/16) LEVOFLOXACIN (Verified Allergy, Unknown, 07/31/16) MORPHINE (Verified Allergy, Unknown, 07/31/16) MUPIROCIN (Verified Allergy, Unknown, 07/31/16) PENICILLINS (Unverified Allergy, Unknown, 07/31/16) SULFA (SULFONAMIDE ANTIBIOTICS) (Unverified Allergy, Unknown, 07/31/16) Objective Last Vital Signs Date Time Temp Pulse Resp B/P (MAP) Pulse Ox O2 Delivery O2 Flow Rate FiO2 03/01/17 17:49 98.7 03/01/17 16:00 78 20 134/73 100 Room Air 02/28/17 04:00 2.0 Intake and Output 02/28/17 03/01/17 19:00 07:00 Intake Total 720 ml 360 ml Balance 720 ml 360 ml Intake Oral 720 ml 360 ml # Voids 4 2 Assessment/Plan Assessment/Plan Assessment/Plan Assessment/Plan Problem List: (1) Acute blood loss anemia ICD Codes: D62 - Acute posthemorrhagic anemia SNOMED: 299479203 (2) Postoperative urinary retention ICD Codes: N99.89 - Other postprocedural complications and disorders of genitourinary system; R33.8 - Other retention of urine SNOMED: 795972676 (3) Abscess ICD Codes: L02.91 - Cutaneous abscess, unspecified SNOMED: 688380699 (4) Hidradenitis suppurativa ICD Codes: L73.2 - Hidradenitis suppurativa SNOMED: 33083325 (5) depression/anxiety (6) Pain and swelling of right upper extremity ICD Codes: M79.601 - Pain in right arm; M79.89 - Other specified soft tissue disorders SNOMED: 352720609, 579235659 Status: stable Assessment/Plan Appreciate surgery rec's F/u cultures s/p Excision of infected tissue and reconstruction on 02/20/17 s/p Excision of infected tissue and reconstruction on 02/23/17 TRANG drain per surgery--R axillary TRANG drain removed on 02/24/17 Christensen placed on 02/21/17 given urinary retention and now removed on 02/26/17 --> voiding on own Post operative recommendations include: - encourage mobilization/ambulation - encourage incentive spirometry to optimize pulmonary hygiene - DVT/GI prophylaxis as appropriate - ctm CBC and hemodynamics - ctm electrolytes, adjust/replete prn - pain control, supportive care, bowel regimen - itching control w/ benadryl PRN Home health ordered for wound care DC planning for likely home Mon. Meds done FULL CODE 31min of extra time was spent on this case in addition to normal encounter time for care/coordination and counseling. D/w pt/family, RN, SW/CM, surgery regarding mgmt and dispo. D/w surgery re postop mgmt, removing christensen for voiding trial Subjective Subjective Date patient seen: Feb 27, 2017 Time patient seen: 15:00 ROS Limited/Unobtainable: No Constitutional: Reports: no symptoms HEENT: Reports: no symptoms Cardiovascular: Reports: no symptoms Respiratory: Reports: no symptoms Gastrointestinal/Abdominal: Reports: no symptoms Genitourinary: Reports: no symptoms Neurologic/Psychiatric: Reports: no symptoms Endocrine: Reports: no symptoms Allergies: Coded Allergies: CEFDINIR (Verified Allergy, Unknown, 07/31/16) CEPHALEXIN (Verified Allergy, Unknown, 07/31/16) CIPROFLOXACIN (Verified Allergy, Unknown, 07/31/16) DOXYCYCLINE (Unverified Allergy, Unknown, 07/31/16) ERYTHROMYCIN BASE (Unverified Allergy, Unknown, 07/31/16) LEVOFLOXACIN (Verified Allergy, Unknown, 07/31/16) MORPHINE (Verified Allergy, Unknown, 07/31/16) MUPIROCIN (Verified Allergy, Unknown, 07/31/16) PENICILLINS (Unverified Allergy, Unknown, 07/31/16) SULFA (SULFONAMIDE ANTIBIOTICS) (Unverified Allergy, Unknown, 07/31/16) All Systems: reviewed and negative except above Subjective No acute o/n events s/p Excision of infected tissue and reconstruction POD#7 s/p Excision of infected tissue and reconstruction POD#4 R axillary drain removed on 02/24/17 Pt doing well. Pain controlled. Denies f/c, n/v, d/c, chest pain, SOB. +Gas, + BM RUE more swollen and painful since last night Objective Objective Last 24 Hour Vital Signs Date Time Temp Pulse Resp B/P (MAP) Pulse Ox O2 Delivery O2 Flow Rate FiO2 02/27/17 16:24 98.9 86 20 160/84 94 02/27/17 16:00 18 02/27/17 12:00 18 02/27/17 11:46 98.8 76 20 125/69 95 02/27/17 08:41 98.9 85 20 113/57 96 02/27/17 08:00 18 02/27/17 04:00 98.6 73 16 115/50 97 Nasal Cannula 2.0 02/27/17 04:00 17 02/27/17 00:20 18 02/27/17 00:00 98.3 76 17 112/60 93 Room Air 02/26/17 20:30 17 Intake and Output 02/26/17 02/27/17 19:00 07:00 Intake Total 720 ml Output Total 800 ml 25 ml Balance -80 ml -25 ml Intake Oral 720 ml Output Urine Total 800 ml Drainage Total 25 ml Laboratory Tests 02/27/17 08:15: Vancomycin Level Trough 11.7 Height (Feet): 5 Height (Inches): 7.00 Weight (Pounds): 228 Objective General: alert, cooperative, no distress, appears stated age Head: normocephalic, without obvious abnormality, atraumatic Eyes: conjunctivae/corneas clear. PERRL, EOM's intact Throat: lips, mucosa, and tongue normal. MMM Neck: supple, symmetrical, trachea midline, and no JVD Lungs: clear to auscultation bilaterally Heart: regular rate and rhythm, S1, S2 normal, no murmur, click, rub or gallop Abdomen: soft, non-tender, non-distended, bowel sounds normal; no masses or organomegaly Extremities: extremities normal, atraumatic, no cyanosis or edema Pulses: 2+ and symmetric Skin: skin color, texture, turgor normal; dressing c/d/i Neurologic: grossly normal, no focal deficits Bryant Alejandro M.D. Mar 01, 2017 19:03
[2017-03-01 20:00] VITALS: BP 123/83
[2017-03-01] MEDS: Sennosides 8.6mg ORAL SCH (20:09)
[2017-03-02 05:10] VITALS: BP 134/86
[2017-03-02] MEDS ORDERED: Tubing IV Secondary IV ONE (05:14)
--- NOTE | 2017-03-02 08:37 | Discharge Summary ---
Discharge Summary Hospital Course Date of Admission Feb 19, 2017 at 12:50 Date of Discharge Mar 02, 2017 at 05:15 Admitting Diagnosis abscesses Reason for Hospitalization: abscesses HPI 37y/o female with pmh of hidradenitis suppurative s/p multiple treatments, including abx and surgeries, most recently b/l groin debridments 07/2016, presents with b/l axillary pain/swellng/redness/drainage. No fevers/chills, pain progressive in her axilla b/l. No previous complications from gen anesthesia or cardio/pulm complications from previous surgeries. Is able to perform 4METS activity without any chest pain or dyspnea, no hx of CAD/HI/pulm disease. Consultations Plastic surgery Procedures Excision of infected tissue and reconstruction on 02/20/17 Excision of infected tissue and reconstruction on 02/23/17 Hospital Course Pt was admitted and continued on IV antibiotics. She was seen by surgery and underwent excision of infected tissue and reconstruction on 02/20/17, followed by excision of infected tissue and reconstruction on 02/23/17. Bilateral axillary TRANG drains removed per surgery prior to d/c. Postop course complicated by urinary retention requiring christensen placement. Prior to d/c christensen was removed and pt able to void on own. Once pain controlled and wounds stable per surgery, pt was discharged home with oral pain meds and oral antibiotics. Home health was also setup for wound care. Discharge Medications New Medications: Clindamycin Hcl (Clindamycin Hcl) 300 Mg Capsule 300 MG ORAL QID for 7 Days, #28 CAP Ondansetron Odt* (Zofran Odt*) 4 Mg Tab.rapdis 4 MG ORAL Q6H PRN for 30 Days, #30 TAB 0 Refills Diphenhydramine Hcl* (Benadryl*) 25 Mg Capsule 25 MG ORAL Q4H PRN for 30 Days, #30 CAP 0 Refills Docusate Sodium* (Colace*) 100 Mg Capsule 100 MG ORAL TWICE A DAY for 30 Days, #60 CAP 0 Refills Zolpidem Tartrate* (Ambien*) 5 Mg Tablet 5 MG ORAL DAILYPRN PRN for 20 Days, #20 TAB 0 Refills for insomnia Discharge Condition Upon Discharge: stable Discharge Disposition Patient was discharged to Home with Home Health Discharge Diagnoses: (1) Abscess (2) Hidradenitis suppurativa (3) Postoperative urinary retention (4) Acute blood loss anemia (5) Pain and swelling of right upper extremity (6) depression/anxiety Shorty Lemon M.D. Mar 02, 2017 08:36
--- NOTE | 2017-03-15 20:36 | Diagnostic Imaging Report ---
APPROVED REPORT CPT Code: 65484 Present Symptoms Upper Extremity Pain: Right Upper Extremity Edema: Right RIGHT UPPER EXTREMITY: Venous imaging reveals patency of the internal jugular, subclavian, axillary and brachial veins. The cephalic and basilic veins are also patent. The cephalic vein PICC line is also patent. Doppler indicates normal spontaneous flow within these venous segments.
== END 2017-03-02 05:15 | disposition home health service (06) | DRG 574 ==
LOC: EMR 12:30 → EDBEDREQ 12:50 → INTOOBSV 12:50 → OBSVTOIN 12:50 → 3E 12:50
DX: L02.412 Cutaneous abscess of left axilla (principal); D62 Acute posthemorrhagic anemia; L73.2 Hidradenitis suppurativa; E66.01 Morbid (severe) obesity due to excess calories; F32.9 Major depressive disorder, single episode, unspecified; F41.9 Anxiety disorder, unspecified; Z68.35 Body mass index [BMI] 35.0-35.9, adult; R33.9 Retention of urine, unspecified
CPT/HCPCS: 36415; 36569; 71045; 76937; 80048; 80053; 80202; 81003; 81025; 85025; 85610; 85730; 86850; 86900; 86901; 87086; 93005; 93971; 94003; 94150; 99285; J2250; J2405; J2710